=== PATIENT | female | born 1970 | race Asian ===

== ENCOUNTER 2024-10-26 19:24 | Inpatient (IN) | payer OTHER ==
[~2024-10-26] VITALS: Ht 149.9 cm; Wt 47.0 kg
[2024-10-26] MEDS ORDERED: VANCOMYCIN PER PHARMACY 0 MG IV SCH (20:00)
[2024-10-26] MEDS: SODIUM CHLORIDE 0.9% 1,000 ML IV ONE (20:30)
[2024-10-26] MEDS: CLINDAMYCIN 600MG IV 50 ML IV ONE (20:30)
[2024-10-26 20:36] LABS: Eosinophils # (auto) 0.1 10 ^3/uL (0-0.8); Eosinophils % (auto) 0.5 % (0.0-7.0); Lymphocytes # (auto) 1.4 10 ^3/uL (0.4-5.4); Mean Corpuscular Volume 94.6 fL (80.0-100.0)
[2024-10-26 20:37] LABS: Basophils # (auto) 0 10 ^3/uL (0-0.2); Basophils % (auto) 0.2 % (0.0-2.0); Hematocrit 17.5 % (36.0-46.0); Lymphocytes % (auto) 6.8 % (10.0-50.0); Mean Corpuscular Hemoglobin 27.9 pg (28.0-32.0); Mean Corpuscular Hgb Conc. 29.5 g/dL (32.0-36.0); Monocytes % (auto) 5.3 % (0.0-12.0); Neutrophils # (auto) 17.3 10 ^3/uL (1.6-8.6); Neutrophils % (auto) 87.2 % (37.0-80.0); Platelet Count (auto) 370 10^3/uL (140-450); Red Blood Cells 1.85 10^6/uL (4.0-5.20); Red Cell Distribution Width 17.1 % (11.8-14.3); White Blood Cell 19.9 10^3/uL (4.4-10.8)
[2024-10-26 20:48] LABS: Alanine Aminotransferase 11 U/L (7-40); Albumin 3.5 g/dL (3.2-4.8); Alkaline Phosphatase 58 U/L (46-116); Anion Gap 11.00001 (5-15); BUN/Creatinine Ratio 7.3 (10.0-20.0); Calcium 9.7 mg/dL (8.7-10.4)
[2024-10-26 20:49] LABS: Total Protein 6.9 g/dL (5.7-8.2)
[2024-10-26 21:13] LABS: Urine Amorphous Crystal FEW /hpf (None Seen); Urine Bacteria FEW /hpf (None Seen); Urine Blood 1+ /uL (Negative); Urine Clarity Turbid (Clear); Urine Color Light-Yellow (Yellow); Urine Protein, UAD 3+ (Negative); Urine Specific Gravity 1.016 (1.001-1.035); Urine Squamous Epithelial Cell FEW /hpf (<5); Urine Urobilinogen Normal (Negative); Urine WBC 54 /hpf (0 - 5)
[2024-10-26 21:14] LABS: Aspartate Aminotransferase 10 U/L (13-40); Bilirubin, Total 0.2 mg/dL (0.2-1.0); Blood Urea Nitrogen 71 mg/dL (9-23); Chloride 114 mmol/L (98-107); Glucose 201 mg/dL (74-106); Sodium 135 mmol/L (136-145)
[2024-10-26 21:18] LABS: Hemoglobin 5.2 g/dL (12.2-16.2)
[2024-10-26 21:19] LABS: Carbon Dioxide < 10 mmol/L (20-31); Potassium 6.2 mmol/L (3.5-5.1)
[2024-10-26] MEDS: VANCOMYCIN 1GM/250ML KIT 250 ML IV ONE (21:30)
[2024-10-26 21:47] LABS: Anion Gap 12.00001 (5-15)
[2024-10-26 21:48] LABS: Calcium 9.4 mg/dL (8.7-10.4)
[2024-10-26 21:53] LABS: BUN/Creatinine Ratio 8.1 (10.0-20.0)
[2024-10-26 22:00] LABS: Blood Urea Nitrogen 77 mg/dL (9-23); Chloride 114 mmol/L (98-107); Glucose 230 mg/dL (74-106); Sodium 136 mmol/L (136-145)
[2024-10-26 22:01] LABS: Carbon Dioxide < 10 mmol/L (20-31); Potassium 6.6 mmol/L (3.5-5.1)
--- NOTE | 2024-10-26 22:12 | ED.PDOC ---
History of Present Illness HPI Comments 51-year-old female who presents to the emergency department with right eye swelling, redness and pain ongoing for the past 4 days. She states she is still able to see out of the eye. She denies any laceration or injury to the eye. Patient does have a history of diabetes. Chief Complaint: Eye Problem Time Seen by MD: 19:53 Allergies: Coded Allergies: NO KNOWN ALLERGIES (Unverified , 10/26/24) Mode of Arrival: Ambulatory Vital Signs Vital Signs Date Time Temp Pulse Resp B/P (MAP) Pulse Ox O2 Delivery O2 Flow Rate FiO2 10/26/24 23:28 23 97 Room Air* 0 21 10/26/24 22:38 92 10/26/24 22:36 97.8 124/62 (82) 97.8 Physical Exam General: Awake, alert and oriented. No acute distress. Skin: Skin in warm, dry and intact without rashes or lesions. HEENT: Right eyelid erythematous, tender, significantly edematous (swollen shut), visualized conjunctiva mildly erythematous. Swelling of the palpebral conjunctiva noted . Extraocular movements intact. PERRLA Neck: Normal range of motion. No JVD. Cardiac: Regular rate Respiratory: No signs of respiratory distress. No Stridor. Extremities: Upper and lower extremities are atraumatic in appearance without tenderness or deformity. Neurological: The patient is awake, alert and oriented to person, place, and time with normal speech. Speech is clear. There is no facial asymmetry. Psychiatric: Appropriate mood and affect. Good judgement and insight. No visual or auditory hallucinations. No suicidal or homicidal ideation. Review of Systems: REVIEW OF SYSTEMS: No fever, no chills, HEENT: Right eye pain and swelling, blurred vision. She denies complete loss of vision in the right eye Cardiac: No chest pain. No palpitations. Lungs: No shortness of breath, GI: No abdominal pain, no vomiting Musculoskeletal: No joint pain , no back pain Skin: No rash, no wound Neuro: No headache, no dizziness, no syncope Was a procedure done? Was a procedure done?: No Differential Dx Considerations may include: Preseptal cellulitis, orbital cellulitis, abscess, gastrointestinal bleed, other X-Ray, Labs, Meds, VS Vital Signs Date Time Temp Pulse Resp B/P (MAP) Pulse Ox O2 Delivery O2 Flow Rate FiO2 10/26/24 23:28 23 97 Room Air* 0 21 10/26/24 22:38 92 24 98 Room Air* 0 21 10/26/24 22:36 97.8 92 24 124/62 (82) 98 97.8 10/26/24 19:48 98.2 98 20 138/68 (91) 98 Lab Test 10/26/24 22:58 10/26/24 21:30 10/26/24 20:23 10/26/24 20:00 Range/Units POC Glucose 297 H 70-106 mg/dl Sodium Level 136 135 L 136-145 mmol/L Potassium Level 6.6 *H 6.2 *H 3.5-5.1 mmol/L Chloride Level 114 H 114 H 98-107 mmol/L Carbon Dioxide Level < 10 *L < 10 *L 20-31 mmol/L Anion Gap 12.47255 11.31532 5-15 Blood Urea Nitrogen 77 H 71 H 9-23 mg/dL Creatinine 9.53 H 9.73 H 0.550-1.02 mg/dL Glomerular Filtration Rate Calc 5 4 >90 mL/min BUN/Creatinine Ratio 8.1 L 7.3 L 10.0-20.0 Serum Glucose 230 H 201 H 74-106 mg/dL Calcium Level 9.4 9.7 8.7-10.4 mg/dL Urine Color Light-yellow Yellow Urine Clarity Turbid H Clear Urine pH 6.0 5.0-9.0 Urine Specific [place] 1.016 1.001-1.035 Urine Protein 3+ H Negative Urine Ketones Negative Negative Urine Blood 1+ H Negative /uL Urine Nitrite Negative Negative Urine Bilirubin Negative Negative Urine Urobilinogen Normal Negative mg/dL Urine Leukocyte Esterase Trace Negative /uL Urine RBC 5 0 - 4 /hpf Urine WBC 54 0 - 5 /hpf Urine Squamous Epithelial Cells Few <5 /hpf Urine Amorphous Crystals Few None Seen /hpf Urine Bacteria Few H None Seen /hpf Urine Glucose 3+ H Normal mg/dL White Blood Count 19.9 H 4.4-10.8 10^3/uL Red Blood Count 1.85 L 4.0-5.20 10^6/uL Hemoglobin 5.2 *L 12.2-16.2 g/dL Hematocrit 17.5 L 36.0-46.0 % Mean Corpuscular Volume 94.6 80.0-100.0 fL Mean Corpuscular Hemoglobin 27.9 L 28.0-32.0 pg Mean Corpuscular Hemoglobin Concent 29.5 L 32.0-36.0 g/dL Red Cell Distribution Width 17.1 H 11.8-14.3 % Platelet Count 370 140-450 10^3/uL Mean Platelet Volume 7.4 6.9-10.8 fL Neutrophils (%) (Auto) 87.2 H 37.0-80.0 % Lymphocytes (%) (Auto) 6.8 L 10.0-50.0 % Monocytes (%) (Auto) 5.3 0.0-12.0 % Eosinophils (%) (Auto) 0.5 0.0-7.0 % Basophils (%) (Auto) 0.2 0.0-2.0 % Neutrophils # (Auto) 17.3 H 1.6-8.6 10 ^3/uL Lymphocytes # (Auto) 1.4 0.4-5.4 10 ^3/uL Monocytes # (Auto) 1.0 0-1.3 10 ^3/uL Eosinophils # (Auto) 0.1 0-0.8 10 ^3/uL Basophils # (Auto) 0 0-0.2 10 ^3/uL Nucleated Red Blood Cells 0.0 % Prothrombin Time 10.7 9.3-11.8 sec Prothrombin Time INR 1.01 0.9-1.15 Lactic Acid Level 1.3 0.4-2.0 mmol/L Total Bilirubin 0.2 0.2-1.0 mg/dL Aspartate Amino Transferase (AST) 10 L 13-40 U/L Alanine Aminotransferase (ALT) 11 7-40 U/L Alkaline Phosphatase 58 46-116 U/L Total Protein 6.9 5.7-8.2 g/dL Albumin 3.5 3.2-4.8 g/dL Current Medications Medications (Trade) Dose Ordered Sig/Ray Route Start Time Stop Time Status Last Admin Sodium Chloride 1,000 ml @ 1,000 mls/hr Q1H ONCE IV 10/26/24 20:00 10/26/24 20:59 DC 10/26/24 20:30 Clindamycin Phosphate 50 ml @ 50 mls/hr ONCE ONCE IV 10/26/24 20:00 10/26/24 20:59 DC 10/26/24 20:30 Vancomycin HCl 250 ml @ 250 mls/hr ONCE ONCE IV 10/26/24 21:00 10/26/24 21:59 DC 10/26/24 21:30 Insulin Human Regular (InsuLIN R) 10 units ONCE ONCE IV 10/26/24 22:15 10/26/24 22:16 DC 10/26/24 22:15 Dextrose 50 ml ONCE ONCE IV 10/26/24 22:15 10/26/24 22:16 DC 10/26/24 22:15 Albuterol (Ventolin Medneb) 20 mg ONCE ONCE NEB 10/26/24 22:15 10/26/24 22:16 DC 10/26/24 23:26 Sodium Bicarbonate 50 ml ONCE ONCE IV 10/26/24 22:15 10/26/24 22:16 DC 10/26/24 22:15 Calcium Gluconate/ Sodium Chloride 50 ml @ 120 mls/hr ONCE ONCE IV 10/26/24 22:15 10/26/24 22:39 DC 10/26/24 22:15 Zirconium Oxide (Lokelma) 10 gm ONCE ONCE PO 10/26/24 22:15 10/26/24 22:16 DC 10/26/24 22:15 Cefepime HCl 50 ml @ 12.5 mls/hr ONCE ONCE IV 10/26/24 23:45 10/27/24 03:44 10/26/24 23:45 [place] [id number] Ph: [phone] DIAGNOSTIC IMAGING Diagnostic Imaging Report : [id number] Signed PATIENT: NARCISA LINN ACCT: [id number] UNIT: [id number] : 1970 LOC: ER ROOM / BED: / AGE / SEX: 54 / F ADM STATUS: REG ER SERVICE 07 ORDERING PHYSICIAN: TIESHA NEGRON MD PROCEDURE(s): FAC2C - MAXILLOFACIAL WITHOUT REASON: right facial swelling, right eye swelling ORDER NUMBER(s): [id number], ACCESSION NUMBER(s): [id number] EXAM: CT MAXILLOFACIAL WITHOUT CLINICAL HISTORY: right facial swelling, right eye swelling TECHNIQUE: Multiple contiguous axial images were obtained of the facial bones without intravenous contrast. Sagittal and coronal reformations were obtained. This exam was performed according to our departmental dose optimization program. Up-to-date CT equipment and radiation dose reduction techniques are utilized as appropriate. Comparison: None FINDINGS: The globes are symmetric. Prior ocular lens replacements. The extraocular muscles are intact. No intra or extraconal hemorrhage. There is right preseptal soft tissue thickening and stranding. There is subcutaneous soft tissue stranding extending along the anterior and lateral right cheek no well-formed fluid collection to suggest abscess on noncontrast imaging. No soft tissue gas The mastoid air cells and visualized paranasal sinuses are well-aerated. The extraocular muscles are intact. No facial, mandibular, or orbital wall fracture is identified. The temporomandibular joints are maintained. IMPRESSION: 1. Right preseptal cellulitis as well as cellulitis along the anterior lateral right cheek. 2. No soft tissue gas or definite fluid collection on noncontrast imaging. ATED BY: MERE SCHMITT MD DICTATED DATE/TIME: 10/26/242305 SIGNED BY: MERE SCHMITT MD SIGNED DATE/TIME: 10/26/242305 CC: Time of 1ST Reevaluation: 00:44 Reevaluation 1ST: Unchanged Patient Education/Counseling: Diagnosis, Treatment, Other (For admission) Family Education/Counseling: Diagnosis, Other (need for admission) Departure 1 Departure Time of Disposition: 22:11 Impression: Primary Impression: Facial cellulitis Additional Impressions: Orbital cellulitis Hyperkalemia Acute renal failure Disposition: HOME / SELF CARE / HOMELESS Condition: Serious Comments 54-year-old female with a right orbital right facial cellulitis. Acute renal failure with associated hyperkalemia. Antibiotics, hyperkalemia treatment initiated in the emergency department. Hemoglobin 5.5. 2 units PRBCs ordered for transfusion. Patient admitted for further treatment, evaluation and monitoring. Extensive evaluation was performed in attempt to identify or rule out: (See differential diagnosis section) The following tests were ordered, and results were reviewed by me: (See diagnostic results section) The following test were independently interpreted by me: EKG I reviewed and agreed with the following test results read by other providers: N/A I reviewed the following notes from the pt's past medical encounters: (None available at this time) Additional information was gathered from interviewing the following independent historians: N/A Discussion of management or test interpretation with external physician/other qualified health child care worker: N/A Addressed an acute or chronic illness that poses a threat to life or bodily function: Severe anemia requiring blood transfusion, orbital cellulitis, hyperkalemia, acute renal failure Decision regarding hospitalization or escalation of hospital level of care: Risk and benefits of admission for further treatment of patient's condition was considered. Due to patient's current clinical condition, high risk of decline and poor outcome if discharged and need for further inpatient management and monitoring, patient will be admitted to the hospital. Drug therapy requiring intensive monitoring for toxicity: Blood products, IV calcium gluconate, IV insulin, Parenteral controlled substances: N/A Decision regarding elective major surgery with identified patient or procedure risk factors: N/A Decision regarding emergency major surgery: N/A Decision not to resuscitate or to de-escalate care because of poor prognosis: N/A Diagnosis or treatment significantly limited by social determinants of health: N/A Critical Care Note Critical Care Time?: Yes (35 min-critical care time only) Critical care comment: Due to a high probability of clinically significant, life threatening deterioration, the patient required my highest level of preparedness to intervene emergently and I personally spent this critical care time directly and personally managing the patient. This critical care time included obtaining a history; examining the patient; pulse oximetry; ordering and review of studies; arranging urgent treatment with development of a management plan; evaluation of patient's response to treatment; frequent reassessment; and, discussions with other providers. This critical care time was performed to assess and manage the high probability of imminent, life-threatening deterioration that could result in multi-organ failure. It was exclusive of separately billable procedures and treating other patients and teaching time. Please see my other sections and the rest of the note for further information on patient assessment and treatment. Stability Stability form required: No Heart Score Heart Score: Heart Score Response (Comments) Value History N/A 0 EKG N/A 0 Age N/A 0 Risk Factors N/A 0 Troponin N/A 0 Total 0 TIESHA NEGRON MD Oct 26, 2024 22:12
[2024-10-26] MEDS: SODIUM BICARB 8.4% 50Meq/50ml SYR INJ IV ONE (22:15)
[2024-10-26] MEDS: InsuLIN REG 1unit/0.01ml Soln (100units/ml) IV ONE (22:15)
[2024-10-26] MEDS: SODIUM ZIRCONIUM CYCL 10 GM PAK PO ONE (22:15)
[2024-10-26] MEDS: DEXTROSE (50%) 50ML SYRG IV ONE (22:15)
[2024-10-26] MEDS: CALCIUM GLUC 1,000mg/50ml-NS 50 ML IV ONE (22:15)
[2024-10-26 22:38] VITALS: PULSE 92; RESP 24; O2SAT 98
[2024-10-26 23:02] LABS: INR 1.01 (0.9-1.15); Prothrombin Time 10.7 sec (9.3-11.8)
--- NOTE | 2024-10-26 23:09 | DVH ---
EXAM: CT MAXILLOFACIAL WITHOUT CLINICAL HISTORY: right facial swelling, right eye swelling TECHNIQUE: Multiple contiguous axial images were obtained of the facial bones without intravenous con trast. Sagittal and coronal reformations were obtained. This exam was performed according to our depa rtmental dose optimization program. Up-to-date CT equipment and radiation dose reduction techniques a re utilized as appropriate. Comparison: None FINDINGS: The globes are symmetric. Prior ocular lens replacements. The extraocular muscles are intact. No int ra or extraconal hemorrhage. There is right preseptal soft tissue thickening and stranding. There is subcutaneous soft tissue stranding extending along the anterior and lateral right cheek no well-form ed fluid collection to suggest abscess on noncontrast imaging. No soft tissue gas The mastoid air cells and visualized paranasal sinuses are well-aerated. The extraocular muscles are intact. No facial, mandibular, or orbital wall fracture is identified. The temporomandibular joints are maintained. IMPRESSION: 1. Right preseptal cellulitis as well as cellulitis along the anterior lateral right cheek. 2. No soft tissue gas or definite fluid collection on noncontrast imaging.
[2024-10-26] MEDS: ALBUTEROL SULF 2.5 MG/0.5ML(0.5%) NEB SOLN NEB ONE (23:26)
[2024-10-26] MEDS: CEFEPIME 1GM/ 50ML 50 ML IV ONE (23:45)
[2024-10-27] VITALS (22 sets, daily range): BP systolic 109–149; BP diastolic 52–91; PULSE 95–113; RESP 15–30; TEMP 97.4–99.4; O2SAT 95–98
[2024-10-27] MEDS ORDERED: ONDANSETRON HCL 4 MG/2 ML VIAL IV PRN (01:00)
[2024-10-27] MEDS ORDERED: DOCUSATE SOD 100 MG CAP PO PRN (01:00)
[2024-10-27] MEDS ORDERED: DEXTROSE (50%) 50ML SYRG IV PRN ×2 (01:00→08:30)
--- NOTE | 2024-10-27 02:55 | DVHHP2 ---
History of Present Illness Reason for Visit: Acute renal failure History of Present Illness The patient is a 51-year-old female who denies past medical history presented to [facility] ED with complaint of right eye swelling, redness, and persistent discharge for a proximally 4 days duration. Patient was seen and alex luated in the ED, laboratory data shows WBC 19.9, hemoglobin 5.2, hematocrit 17.5, platelets 370, sodium 136, potassium 6.6, BUN 77, creatinine 9.53, GFR 5, glucose 230, AST 10, ALT 11, blood pressure 124/68, heart rate 92, temperature 97.8 F, O2 saturation 98% on room air. Maxillofacial CT revealing right preseptal cellulitis as well as cellulitis along the anterior lateral right cheek. Patient was started on IV antibiotic regimen vancomycin, receive 2 units of PRBC, please see medication orders section in the computer. On my assessment, patient denied chest pain, no headache, no dizziness, no diaphoresis, no shortness of breath, no nausea, no vomiting, fever, no chills. Patient was admitted for further evaluation and medical management. Past Medical History Denies past medical history Past Surgical History Denies all surgeries Family History Reviewed, noncontributory to the management of this case. Past Social History The patient lives at home, denies smoking, alcohol or illicit drugs abuse. Review of Systems Constitutional: Yes: Weakness; No: Fever, Chills, Sweats, Malaise, Other Eyes: Conjunctivae inflammation, Eyelid inflammation, Other (Right eye discharge), Redness; No: Pain, Vision change ENT: No: Ear pain, Ear discharge, Nose pain, Nose discharge, Nose congestion, Mouth pain, Mouth swelling, Throat pain, Throat swelling, Other Respiratory: No: Cough, Dry, Shortness of breath, SOB with excertion, Wheezing, Hemoptysis, Pleuritic Pain, Sputum, Wheezing, Other Cardiovascular: No: Chest Pain, Palpitations, Orthopnea, Paroxysmal Noc. Dyspnea, Edema, Lt Headedness, Other Gastrointestinal: No: Nausea, Vomiting, Abdominal Pain, Diarrhea, Constipation, Melena, Hematochezia, Other Genitourinary: No Dysuria, No Frequency, No Incontinence, No Hematuria, No Retention, No Other Musculoskeletal: No: other, neck pain, shoulder pain, arm pain, back pain, hand pain, leg pain, foot pain Skin: No: Rash, Lesions, Jaundice, Bruising, Other Neurological: No: Weakness, Numbness, Incoordination, Change in speech, Confusion, Seizures, Other Allergies: Coded Allergies: NO KNOWN ALLERGIES (Unverified , 10/26/24) Medications Current Medications Medications Dose Ordered Sig/Ray Route Start Time Stop Time Status Last Admin Dose Admin Vancomycin HCl 0 ml @ 0 mls/hr UD IV 10/26/24 20:00 Clindamycin Phosphate 50 ml @ 50 mls/hr Q8HR IV 10/27/24 06:00 Diagnostic Test (Pha) 1 strip ACHS 10/27/24 07:00 Insulin Human Regular ACHS SC 10/27/24 07:00 Dextrose 50 ml UD PRN IV 10/27/24 01:00 Sodium Chloride 10 ml Q8HR IV 10/27/24 06:00 Acetaminophen/ Hydrocodone Bitart 1 tab Q4HP PRN PO 10/27/24 01:00 Ondansetron HCl 4 mg Q4HP PRN IV 10/27/24 01:00 Docusate Sodium 100 mg BIDPRN PRN PO 10/27/24 01:00 Acetaminophen 650 mg Q6HP PRN PO 10/27/24 01:00 Famotidine 20 mg DAILY IV 10/27/24 10:00 Exam Vital Signs Vital Signs Date Time Temp Pulse Resp B/P (MAP) Pulse Ox O2 Delivery O2 Flow Rate FiO2 10/27/24 02:44 97.4 107 24 126/59 (81) 100 97.4 10/26/24 23:28 Room Air* 0 21 General Appearance: Alert, Oriented X3, Cooperative, No acute distress HEENT: Atraumatic, PERRLA, EOMI, Mucous membr. moist/pink Respiratory: Clear to auscultation, Normal air movement Cardiovascular: Regular rate, Normal S1, Normal S2, No murmurs Abdominal: Normal bowel sounds, Soft, No tenderness, No hepatospenomegaly, No masses Extremities: No clubbing, No cyanosis, No edema, Normal pulses, No tenderness/swelling Skin: No rashes, No breakdown, No significant lesion Neuro: Normal gait, Normal speech, Strength at 5/5 X4 ext, Normal tone, Sensation intact, Cranial nerves 3-12 NL, Reflexes 2+ Psych/Mental Status: Mental status NL, Mood NL Labs/Xrays Labs Test 10/26/24 22:58 10/26/24 21:30 10/26/24 20:23 10/26/24 20:00 Range/Units POC Glucose 297 H 70-106 mg/dl Sodium Level 136 136-145 mmol/L Potassium Level 6.6 *H 3.5-5.1 mmol/L Chloride Level 114 H 98-107 mmol/L Carbon Dioxide Level < 10 *L 20-31 mmol/L Anion Gap 12.19011 5-15 Blood Urea Nitrogen 77 H 9-23 mg/dL Creatinine 9.53 H 0.550-1.02 mg/dL Glomerular Filtration Rate Calc 5 >90 mL/min BUN/Creatinine Ratio 8.1 L 10.0-20.0 Serum Glucose 230 H 74-106 mg/dL Calcium Level 9.4 8.7-10.4 mg/dL Urine Color Light-yellow Yellow Urine Clarity Turbid H Clear Urine pH 6.0 5.0-9.0 Urine Specific [place] 1.016 1.001-1.035 Urine Protein 3+ H Negative Urine Ketones Negative Negative Urine Blood 1+ H Negative /uL Urine Nitrite Negative Negative Urine Bilirubin Negative Negative Urine Urobilinogen Normal Negative mg/dL Urine Leukocyte Esterase Trace Negative /uL Urine RBC 5 0 - 4 /hpf Urine WBC 54 0 - 5 /hpf Urine Squamous Epithelial Cells Few <5 /hpf Urine Amorphous Crystals Few None Seen /hpf Urine Bacteria Few H None Seen /hpf Urine Glucose 3+ H Normal mg/dL White Blood Count 19.9 H 4.4-10.8 10^3/uL Red Blood Count 1.85 L 4.0-5.20 10^6/uL Hemoglobin 5.2 *L 12.2-16.2 g/dL Hematocrit 17.5 L 36.0-46.0 % Mean Corpuscular Volume 94.6 80.0-100.0 fL Mean Corpuscular Hemoglobin 27.9 L 28.0-32.0 pg Mean Corpuscular Hemoglobin Concent 29.5 L 32.0-36.0 g/dL Red Cell Distribution Width 17.1 H 11.8-14.3 % Platelet Count 370 140-450 10^3/uL Mean Platelet Volume 7.4 6.9-10.8 fL Neutrophils (%) (Auto) 87.2 H 37.0-80.0 % Lymphocytes (%) (Auto) 6.8 L 10.0-50.0 % Monocytes (%) (Auto) 5.3 0.0-12.0 % Eosinophils (%) (Auto) 0.5 0.0-7.0 % Basophils (%) (Auto) 0.2 0.0-2.0 % Neutrophils # (Auto) 17.3 H 1.6-8.6 10 ^3/uL Lymphocytes # (Auto) 1.4 0.4-5.4 10 ^3/uL Monocytes # (Auto) 1.0 0-1.3 10 ^3/uL Eosinophils # (Auto) 0.1 0-0.8 10 ^3/uL Basophils # (Auto) 0 0-0.2 10 ^3/uL Nucleated Red Blood Cells 0.0 % Prothrombin Time 10.7 9.3-11.8 sec Prothrombin Time INR 1.01 0.9-1.15 Lactic Acid Level 1.3 0.4-2.0 mmol/L Total Bilirubin 0.2 0.2-1.0 mg/dL Aspartate Amino Transferase (AST) 10 L 13-40 U/L Alanine Aminotransferase (ALT) 11 7-40 U/L Alkaline Phosphatase 58 46-116 U/L Total Protein 6.9 5.7-8.2 g/dL Albumin 3.5 3.2-4.8 g/dL PATIENT: NARCISA LINN ACCT: [id number] UNIT: [id number] : 1970 LOC: ER ROOM / BED: / AGE / SEX: 54 / F ADM STATUS: REG ER SERVICE 07 ORDERING PHYSICIAN: TIESHA NEGRON MD PROCEDURE(s): FAC2C - MAXILLOFACIAL WITHOUT REASON: right facial swelling, right eye swelling ORDER NUMBER(s): [id number], ACCESSION NUMBER(s): [id number] EXAM: CT MAXILLOFACIAL WITHOUT CLINICAL HISTORY: right facial swelling, right eye swelling TECHNIQUE: Multiple contiguous axial images were obtained of the facial bones without intravenous contrast. Sagittal and coronal reformations were obtained. This exam was performed according to our departmental dose optimization program. Up-to-date CT equipment and radiation dose reduction techniques are utilized as appropriate. Comparison: None FINDINGS: The globes are symmetric. Prior ocular lens replacements. The extraocular muscles are intact. No intra or extraconal hemorrhage. There is right preseptal soft tissue thickening and stranding. There is subcutaneous soft tissue stranding extending along the anterior and lateral right cheek no well-formed fluid collection to suggest abscess on noncontrast imaging. No soft tissue gas The mastoid air cells and visualized paranasal sinuses are well-aerated. The extraocular muscles are intact. No facial, mandibular, or orbital wall fracture is identified. The temporomandibular joints are maintained. IMPRESSION: 1. Right preseptal cellulitis as well as cellulitis along the anterior lateral right cheek. 2. No soft tissue gas or definite fluid collection on noncontrast imaging. Assessment/Plan Assessment/Plan Facial cellulitis Orbital cellulitis Hyperglycemia Hyperkalemia Acute renal failure Severe anemia Leukocytosis, unspecified Plan 1. Admit to telemetry unit 2. Breathing treatment 3. Pain control management 4. IV antibiotic management 5. Management of fluids and electrolytes 6. Consultation for nephrology 7. Diagnostic test maxillofacial CT 8. DVT prophylaxis on SCDs 9. Repeat labs CBC, CMP in a.m. 10. Home medication reviewed and reconciled 11. Continue with current medical management 12. Treatment plan discussed with patient and RN. Patient verbalized understanding. Plan discussed with: Patient, Other (RN) My Orders Orders - LOC VAZ DNP Procedure Category Date Status Time Clindamycin 600mg Iv PHA 10/27/24 In Process (Cleocin Iv) 06:00 Hemoglobin A1c LAB 10/27/24 Logged 00:58 *Dr. Chriss Bruce CONS 10/27/24 Transmitted -[place] 00:58 Consistent DIET 10/27/24 Transmitted Carb(Ccho)Diabetes Breakfast Glucose Blood PHA 10/27/24 In Process (Accu-Chek Comfort 07:00 Insulin R (Human) PHA 10/27/24 In Process (Insulin R) 07:00 Dextrose 50% Syringe PHA 10/27/24 In Process 01:00 Allergies OLIVIA 10/27/24 In Process 00:58 Code Status CODE 10/27/24 Transmitted 00:58 Renal DIET 10/27/24 Transmitted Standard(2gna,3gk,Lopho) Breakfast Sodium Chloride Lock PHA 10/27/24 In Process (Saline Lock Ns) 06:00 Oxygen Per Hour RT 10/27/24 Transmitted 00:58 Hydrocodone-Acet PHA 10/27/24 In Process 5/325mg Tab ([place] 01:00 Ondansetron Hcl PHA 10/27/24 In Process (Zofran) 01:00 Docusate Sodium PHA 10/27/24 In Process Capsule (Colace 01:00 Complete Blood Count LAB 10/28/24 Verified 04:00 Comprehensive LAB 10/28/24 Verified Metabolic Panel 04:00 Condition: Serious OLIVIA 10/27/24 In Process 00:58 Acetaminophen Tablet PHA 10/27/24 In Process (Tylenol Tablet) 01:00 Bedrest With Bathroom OLIVIA 10/27/24 In Process Privileg 00:58 Sequential OLIVIA 10/27/24 In Process Compression Device Famotidine Injection PHA 10/27/24 In Process (Pepcid Injection) 10:00 Problem List: (1) Facial cellulitis (2) Severe anemia (3) Hyperglycemia (4) Orbital cellulitis (5) Acute renal failure (6) Hyperkalemia (7) Leukocytosis, unspecified Date of Service: Oct 27, 2024 Billing Provider: LOC VAZ DNP Common Visit Codes: [id number] INP/OBS CARE (HIGH) LOC VAZ DNP Oct 27, 2024 02:55
[2024-10-27] MEDS ORDERED: MORPHINE SULFATE INJ 2 MG/ml SYRG IV PRN (03:00)
[2024-10-27] MEDS ORDERED: NITROGLYCERIN 0.4 MG SL TAB SL PRN (03:00)
[2024-10-27] MEDS: SODIUM CHLOR 0.9% PF (SALINE LOCK) 10ML VIAL/SYR IV SCH (06:00)
[2024-10-27] MEDS: CLINDAMYCIN 600MG IV 50 ML IV SCH (06:00)
[2024-10-27] MEDS: ACCU-CHEK COMFORT CURVE STRIP VI SCH ×2 (07:00→11:51)
[2024-10-27] MEDS: InsuLIN REG 1unit/0.01ml Soln (100units/ml) SC SCH ×2 (07:00→11:39)
--- NOTE | 2024-10-27 07:40 | DVHPNRES ---
Progress Note Date Seen: Oct 27, 2024 Resident Creating Document: JEANETTE BEDOYA RESIDENT Has the PT tested + for MRSA If YES, has PT been informed?: No Medical Necessity Reason Pt with a Central, PICC or Fol: No Medical Necessity Reason right eye swelling, redness, and persistent discharge for a proximally 4 days duration Subjective Review of Systems This is a 54-year-old female who the past medical history of diabetes and kidney disease presented to the [facility] with the compliant of right eye swelling, redness, and persistent discharge for a proximally 4 days duration. Per patient, she woke up from bed 4 days ago and noted that her right eye was swollen and discharging fluid. Patient said she used [id number] topical medications without any improvement. This as the day progresses so did the swelling to the point that yesterday patient was unable to open her eyes as it was filled with pus. Patient was then advised to come to the ED for evaluation and management. In the ED, patient denied chest pain, no headache, no dizziness, no diaphoresis, no shortness of breath, no nausea, no vomiting, fever, no chills. Initial vital data showed BP:124/68, HR: 92, temp: 97.8 F, O2 saturation 98% on room air. Lab work showed WBC 19.9, hemoglobin 5.2, hematocrit 17.5, platelets 370, sodium 136, potassium 6.6, BUN 77, creatinine 9.53, GFR 5, glucose 230, AST 10, ALT 11. Maxillofacial CT revealing right preseptal cellulitis as well as cellulitis along the anterior lateral right cheek. Patient was started on IV antibiotic regimen vancomycin, received 2 units of PRBC. On my evaluation, patient was bed with her right eye closed with pus discharging. Patient expressed tenderness her right eye swelling red. ROS Constitutional: Denies fever no chills no feeling of malaise HEENT: Denies headache, ear pain: ear discharges, conjunctivitis, pus discharge Right eye. nasal discharge throat pain Cardiovascular: Denies chest pain, palpitation, orthopnea, PND, or pedal edema Respiratory: Denies shortness of breath, cough cough, sputum production, hemoptysis, GI: Denies abdominal pain, nausea, vomiting, diarrhea, hematemesis, hematochezia, : Denies frequency, urgency, hematuria, Endocrine: Denies unintentional weight gain or weight loss, feeling of hot flashes, Markie: Denies easy bruising, bleeding disorders, epistaxis Musculoskeletal: Denies joint pains, muscle aches Psych: No evidence of depression, agapito, suicidal ideation Objective vital signs Vital Sign Date Time Temp Pulse Resp B/P (MAP) Pulse Ox O2 Delivery O2 Flow Rate FiO2 10/27/24 07:00 98.2 113 30 130/66 (87) 98 98.2 10/26/24 23:28 Room Air* 0 21 Total Intake and Output 10/26/24 10/26/24 10/27/24 15:00 23:00 07:00 Intake Total 1050 ml 550 ml Output Total 0 ml Balance 1050 ml 550 ml medications Current Medications Medications Dose Ordered Sig/Ray Route Start Time Stop Time Status Last Admin Dose Admin Vancomycin HCl 0 ml @ 0 mls/hr UD IV 10/26/24 20:00 Clindamycin Phosphate 50 ml @ 50 mls/hr Q8HR IV 10/27/24 06:00 Diagnostic Test (Pha) 1 strip ACHS 10/27/24 07:00 Insulin Human Regular ACHS SC 10/27/24 07:00 Dextrose 50 ml UD PRN IV 10/27/24 01:00 Sodium Chloride 10 ml Q8HR IV 10/27/24 06:00 10/27/24 06:00 10 ML Acetaminophen/ Hydrocodone Bitart 1 tab Q4HP PRN PO 10/27/24 01:00 Ondansetron HCl 4 mg Q4HP PRN IV 10/27/24 01:00 Docusate Sodium 100 mg BIDPRN PRN PO 10/27/24 01:00 Acetaminophen 650 mg Q6HP PRN PO 10/27/24 01:00 Famotidine 20 mg DAILY IV 10/27/24 10:00 Nitroglycerin 0.4 mg Q5MINP PRN SL 10/27/24 03:00 Morphine Sulfate 2 mg Q30M PRN IV 10/27/24 03:00 Examination General Appearance: Alert, Oriented X3, Cooperative, No acute distress, pale Head: Atraumatic Eye: RIGHT -->[place], Eyelid swelling, pus discharges, eyelids matted, Left: normal Ear: no discharge noted Nose:no discharge noted Respiratory: Clear to auscultation, Normal air movement Cardiovascular: Regular rate, Normal S1, Normal S2, No murmurs, no chest wall tenderness Abdominal: NO distention, no tenderness, bowel sounds present, no scars noted Extremities: No clubbing, No cyanosis, No edema, Normal pulses, No tenderness/swelling Skin: No rashes, No breakdown, No significant lesion Neuro: Normal gait, Normal speech, Strength at 5/5 X4 ext, Normal tone, Sensation intact, Cranial nerves 3-12 NL, Reflexes 2+ Psych/Mental Status: Mental status NL, Mood NL laboratory and microbiology Laboratory Tests 10/26/24 21:30 10/26/24 20:00 Test 10/26/24 21:30 Range/Units Serum Glucose 230 H 74-106 mg/dL Problem List/Assessment/Plan Problem List/Assessment/Plan Assessment Sepsis due to UTI/cellulitis UTI Preseptal cellulitis Facial cellulitis Hyperglycemia, Hgb: 6.0 Severe enema status post 4 blood transfusion GI bleed Melena rule out GI bleed Diabetes mellitus type II Hyperkalemia Mild hyponatremia MONICA ESRD, (GFR 4) Plan Continue Vancomycin Continue Clindamycin Consider Cefepime, need renal comment given the GFR 4 Protonix 40mg bid Lantus 10 unit daily Moderate sliding scale N/S maintainence at 100ml/hr Check and replace electrolytes Hyperkalemia protocol Repeat labs in the AM GI consult Nephrology consult urgent Cardiology consult Ophthalmology consult Code status: Full Goal of care discussed for more than 45 minutes Case and plan reviewed with Plan discussed with: Patient, Spouse CC Plasma Assessment Blood Product Administration S: [id number] Date of Service: Oct 27, 2024 Billing Provider: LIBAN OCHOA MD Common Visit Codes: [id number] INP/OBS CARE(HIGH) Secondary Visit Codes: [id number] CARE PLAN 30 MINUTES JEANETTE BEDOYA RESIDENT Oct 27, 2024 07:40 LIBAN OCHOA MD Oct 27, 2024 18:30
[2024-10-27 07:57] LABS: Basophils # (auto) 0.1 10 ^3/uL (0-0.2); Basophils % (auto) 0.3 % (0.0-2.0); Eosinophils # (auto) 0 10 ^3/uL (0-0.8); Hematocrit 19.4 % (36.0-46.0); Lymphocytes # (auto) 0.5 10 ^3/uL (0.4-5.4); Lymphocytes % (auto) 2.6 % (10.0-50.0); Mean Corpuscular Hemoglobin 28.6 pg (28.0-32.0); Mean Corpuscular Hgb Conc. 30.4 g/dL (32.0-36.0); Mean Corpuscular Volume 93.9 fL (80.0-100.0); Monocytes # (auto) 1.1 10 ^3/uL (0-1.3); Monocytes % (auto) 6.2 % (0.0-12.0); Neutrophils # (auto) 16.3 10 ^3/uL (1.6-8.6); Neutrophils % (auto) 90.9 % (37.0-80.0); Platelet Count (auto) 312 10^3/uL (140-450); Red Blood Cells 2.07 10^6/uL (4.0-5.20); Red Cell Distribution Width 16.9 % (11.8-14.3); White Blood Cell 17.9 10^3/uL (4.4-10.8)
[2024-10-27 08:00] LABS: Hemoglobin 5.9 g/dL (12.2-16.2)
[2024-10-27 08:08] LABS: Alanine Aminotransferase 11 U/L (7-40); Albumin 3.5 g/dL (3.2-4.8); Alkaline Phosphatase 60 U/L (46-116); Anion Gap 15.00001 (5-15); BUN/Creatinine Ratio 8.3 (10.0-20.0); Calcium 9.4 mg/dL (8.7-10.4)
[2024-10-27 08:09] LABS: Total Protein 6.5 g/dL (5.7-8.2)
[2024-10-27 08:14] LABS: Aspartate Aminotransferase 11 U/L (13-40); Bilirubin, Total 0.2 mg/dL (0.2-1.0); Chloride 111 mmol/L (98-107); Potassium 5.5 mmol/L (3.5-5.1); Sodium 136 mmol/L (136-145)
[2024-10-27 08:19] LABS: Carbon Dioxide < 10 mmol/L (20-31); Glucose 449 mg/dL (74-106)
[2024-10-27 08:20] LABS: Blood Urea Nitrogen 81 mg/dL (9-23)
[2024-10-27] MEDS ORDERED: FAMOTIDINE (10MG/ML) 2ML VL IV SCH (10:00)
[2024-10-27] MEDS: SODIUM CHLORIDE 0.9% 1,000 ML IV SCH (11:26)
[2024-10-27] MEDS: PANTOPRAZOLE 40 MG/10 ML VIAL INJ IV SCH ×2 (11:26→21:54)
[2024-10-27] MEDS: SODIUM BICARB 50mEq/50ml Vial 150 ML in D5W 5% 1,000 ML IV SCH (12:30)
[2024-10-27] MEDS: SODIUM BICARB 8.4% 50Meq/50ml SYR Vial IV ONE (15:45)
--- NOTE | 2024-10-27 17:18 | DVHCONRES ---
Date Seen: Oct 27, 2024 Resident Creating Document: CURTIS JUNIOR RESIDENT Referring Physician Dr. Park Reason for Consultation MELENA STOOL, SEVERE ANEMIA History of Present Illness Ms. Vega, a 51-year-old female with no past medical history presented to the ED with right eye swelling, redness, and discharge for four days. Laboratory results showed elevated WBC, low hemoglobin and hematocrit, high potassium, BUN, and creatinine, with a GFR of 5. Maxillofacial CT revealed right preseptal cellulitis and cellulitis along the right cheek. She was started on IV antibiotics and received 2 units of PRBC. The patient denied chest pain, headache, dizziness, diaphoresis, shortness of breath, nausea, vomiting, fever, and chills. She was admitted for further evaluation and medical management. She denies smoking, alcohol, or illicit drug use. Patient was seen few weeks back in [facility] where she was told that she has renal failure but she was in disbelief/denial. Past Medical History Denies Past Surgical History Denies Family History Noncontributory Social History The patient lives at home, denies smoking, alcohol or illicit drugs abuse. Allergies: Coded Allergies: NO KNOWN ALLERGIES (Unverified , 10/26/24) Current Medications Current Medications Medications (Trade) Dose Ordered Sig/Ray Route PRN Reason Start Time Stop Time Status Last Admin Vancomycin HCl 0 ml @ 0 mls/hr UD IV 10/26/24 20:00 Clindamycin Phosphate 50 ml @ 50 mls/hr Q8HR IV 10/27/24 06:00 10/27/24 14:00 Diagnostic Test (Pha) (Accu-Chek Comfort Curve T) 1 strip ACHS 10/27/24 07:00 10/27/24 10:07 DC 10/27/24 07:00 Insulin Human Regular (InsuLIN R) ACHS SC 10/27/24 07:00 10/27/24 08:32 DC 10/27/24 07:00 Dextrose 50 ml UD PRN IV Blood Sugar LESS THAN 60 10/27/24 01:00 10/27/24 10:07 DC Sodium Chloride (Saline Lock Ns) 10 ml Q8HR IV 10/27/24 06:00 10/27/24 14:00 Acetaminophen/ Hydrocodone Bitart ([place] 5/325MG Tab) 1 tab Q4HP PRN PO MODERATE PAIN (4-6 PAIN SCALE) 10/27/24 01:00 Ondansetron HCl (Zofran) 4 mg Q4HP PRN IV NAUSEA / VOMITING 10/27/24 01:00 Docusate Sodium (Colace Capsule) 100 mg BIDPRN PRN PO FOR CONSTIPATION 10/27/24 01:00 Acetaminophen (Tylenol Tablet) 650 mg Q6HP PRN PO PAIN SCALE 1-3 OR TEMP>100.4 10/27/24 01:00 Famotidine (Pepcid Injection) 20 mg DAILY IV 10/27/24 10:00 10/27/24 08:32 DC Nitroglycerin (Ntrostat Sublingual) 0.4 mg Q5MINP PRN SL FOR CHEST PAIN 10/27/24 03:00 Morphine Sulfate 2 mg Q30M PRN IV FOR CHEST PAIN 10/27/24 03:00 Pantoprazole Sodium (Protonix) 40 mg DAILY IV 10/27/24 10:00 10/27/24 11:26 Insulin Glargine (Lantus) QAM SC 10/28/24 07:00 Diagnostic Test (Pha) (Accu-Chek Comfort Curve T) 1 strip IQ4HR 10/27/24 12:00 10/27/24 11:51 Insulin Human Regular (InsuLIN R) IQ4HR SC 10/27/24 12:00 10/27/24 11:39 Dextrose 50 ml UD PRN IV Blood Sugar LESS THAN 60 10/27/24 08:30 Sodium Chloride 1,000 ml @ 100 mls/hr Q10H IV 10/27/24 09:15 10/27/24 11:26 Sodium Bicarbonate 150 ml/Dextrose 1,150 ml @ 100 mls/hr [id number] IV 10/27/24 12:30 10/27/24 12:30 Review of Systems CONSTITUTIONAL: Fever, night sweats, weight loss, Lymphadenopathy, ecchymoses, fatigue DERMATOLOGIC: Rash, New/growing/changing skin lesions HEENT: Vision change, eye pain, right eye periorbital swelling, right eye pustular discharge, Rhinorrhea, sinus pain, epistaxis, dysphagia, odynophagia, globus sensation, Change in hearing, tinnitus, vertigo, otalgia, Dental problems, oral ulcers or lesions: : Negative ENDOCRINE: Weight change, heat or cold intolerance, tremor, insomnia, neck pain or swelling, Polyuria, polydipsia, polyphagia, Abnormal hair growth, change in nails: Negative CARDIOVASCULAR: Chest pain, palpitations, syncope, Edema, cyanosis, c laudication, Orthopnea, paroxysmal nocturnal dyspnea: Negative PULMONARY: Shortness of breath, dyspnea with exertion, Cough, hemoptysis, wheezing, chest pain : Negative GI: Nausea, vomiting, diarrhea, melena, hematochezia, Change in appetite, abdominal pain, change in bowel habits or stools: Negative low urine output : Dysuria, frequency, urgency, Urinary incontinence, hematuria, foamy urine, nocturia, Change in libido, erectile dysfunction, Change in menses, dysmenorrhea, dyspaerunia, pelvic pain: : Negative MUSCULOSKELETAL: Joint swelling or pain, muscle pain, back pain: : Negative NEUROLOGIC: Headache, scotoma, Change in smell or taste, change in facial muscles, Muscle weakness, paresthesias, anesthesia, Ataxia, change in speech: Ne gative PSYCHIATRIC: Depression, anxiety, hallucinations, agapito, suicidal/homicidal thoughts, Binging, purging: Negative Vital Signs Vital Signs Date Time Temp Pulse Resp B/P (MAP) Pulse Ox O2 Delivery O2 Flow Rate FiO2 10/27/24 14:00 98.5 96 18 138/75 98.5 10/27/24 14:00 98 10/27/24 08:00 Room Air* 0 21 Labs/Diagnostic Data Labs Test 10/27/24 11:30 10/27/24 05:00 10/26/24 20:23 10/26/24 20:00 Range/Units POC Glucose 317 H 70-106 mg/dl White Blood Count 17.9 H 4.4-10.8 10^3/uL Red Blood Count 2.07 L 4.0-5.20 10^6/uL Hemoglobin 5.9 *L 12.2-16.2 g/dL Hematocrit 19.4 #L 36.0-46.0 % Mean Corpuscular Volume 93.9 80.0-100.0 fL Mean Corpuscular Hemoglobin 28.6 28.0-32.0 pg Mean Corpuscular Hemoglobin Concent 30.4 L 32.0-36.0 g/dL Red Cell Distribution Width 16.9 H 11.8-14.3 % Platelet Count 312 140-450 10^3/uL Mean Platelet Volume 7.3 6.9-10.8 fL Neutrophils (%) (Auto) 90.9 H 37.0-80.0 % Lymphocytes (%) (Auto) 2.6 L 10.0-50.0 % Monocytes (%) (Auto) 6.2 0.0-12.0 % Eosinophils (%) (Auto) 0.0 0.0-7.0 % Basophils (%) (Auto) 0.3 0.0-2.0 % Neutrophils # (Auto) 16.3 H 1.6-8.6 10 ^3/uL Lymphocytes # (Auto) 0.5 0.4-5.4 10 ^3/uL Monocytes # (Auto) 1.1 0-1.3 10 ^3/uL Eosinophils # (Auto) 0 0-0.8 10 ^3/uL Basophils # (Auto) 0.1 0-0.2 10 ^3/uL Nucleated Red Blood Cells 0.0 % Sodium Level 136 136-145 mmol/L Potassium Level 5.5 H 3.5-5.1 mmol/L Chloride Level 111 H 98-107 mmol/L Carbon Dioxide Level < 10 *L 20-31 mmol/L Anion Gap 15.66607 H 5-15 Blood Urea Nitrogen 81 *H 9-23 mg/dL Creatinine 9.77 H 0.550-1.02 mg/dL Glomerular Filtration Rate Calc 4 >90 mL/min BUN/Creatinine Ratio 8.3 L 10.0-20.0 Serum Glucose 449 *H 74-106 mg/dL Hemoglobin A1c 6.0 H <5.7 % A1C Calcium Level 9.4 8.7-10.4 mg/dL Iron Level 17 L 50-170 ug/dL Total Iron Binding Capacity 212 L 250-425 ug/dL Percent Iron Saturation 8.0 L 15-50 % Total Bilirubin 0.2 0.2-1.0 mg/dL Aspartate Amino Transferase (AST) 11 L 13-40 U/L Alanine Aminotransferase (ALT) 11 7-40 U/L Alkaline Phosphatase 60 46-116 U/L Total Protein 6.5 5.7-8.2 g/dL Albumin 3.5 3.2-4.8 g/dL Random Vancomycin Level 20.9 H 5-10 ug/mL Urine Color Light-yellow Yellow Urine Clarity Turbid H Clear Urine pH 6.0 5.0-9.0 Urine Specific [place] 1.016 1.001-1.035 Urine Protein 3+ H Negative Urine Ketones Negative Negative Urine Blood 1+ H Negative /uL Urine Nitrite Negative Negative Urine Bilirubin Negative Negative Urine Urobilinogen Normal Negative mg/dL Urine Leukocyte Esterase Trace Negative /uL Urine RBC 5 0 - 4 /hpf Urine WBC 54 0 - 5 /hpf Urine Squamous Epithelial Cells Few <5 /hpf Urine Amorphous Crystals Few None Seen /hpf Urine Bacteria Few H None Seen /hpf Urine Glucose 3+ H Normal mg/dL Prothrombin Time 10.7 9.3-11.8 sec Prothrombin Time INR 1.01 0.9-1.15 Lactic Acid Level 1.3 0.4-2.0 mmol/L Assessment 54-year-old female in ESRD and sepsis secondary due to UTI and preseptal facial cellulitis. GI assessment: #Melena likely upper GI bleed status post 4 units of PRBC #acute blood loss anemia likely secondary due to GI blood loss, lowest 5.2 #iron-deficiency anemia #Preseptal periorbital/facial cellulitis #Sepsis due to UTI/cellulitis #UTI #Prediabetic 6.0 #ESRD, (GFR 4), anuria needing initiation of dialysis. #Hyperkalemia likely due to above Plan/Recommendation GI Plan: # Medications: pantoprazole 40 mg b.i.d. IV to continue . # Labs: Check ferritin, close follow up of H&H, transfusion threshold 7. Follow up urine and blood culture. # Plan procedure: Presumably patient was not hemodynamically stable, 1st need dialysis, electrolyte correction and when patient is stable we will consider f urther investigation with EGD/no previous history of colonoscopy, cancer screening colonoscopy pending can be considered outpatient cramer. # Diet: Please avoid NSAIDs, caffeine, alcohol, spicy, highly acidic and caustic diets. As tolerated liquid diet/mechanical soft diet. NPO before the night of scheduled procedure. # Continue antibiotics: Further input from ophthalmology and nephrology could be immensely helpful. # please scheduled follow up with GI as outpatient with Dr. Anglin. Thank you so much for the opportunity to consult on your patient. GI team will follow the patient. In case of any questions or concerns please feel free to reach out. Case an action plan discussed with Dr. Mily Anglin. Complex care planning needed total 41 minutes of detailed discussion. The patient and caregiver team agreed to the plan. Plan discussed with: Patient, Other (Primary team) CURTIS JUNIOR RESIDENT Oct 27, 2024 17:18
[2024-10-27 18:12] LABS: Hematocrit 28.5 % (36.0-46.0); Hemoglobin 9.4 g/dL (12.2-16.2)
--- NOTE | 2024-10-27 20:33 | DVHINCON2 ---
Date of service: Oct 27, 2024 History of Present Illness 54 years old female with past medical history of diabetes Chronic kidney disease, presented with chief complaints right eye swelling redness discharge she is found to be in severe acidosis, hyperkalemia, Acute kidney injury patient has a Pablo catheter and remains nonoliguric she is currently being treated with IV fluids and antibiotics she is found to have CT revealing preseptal cellulitis she also admits to dark stool black color stool found to have low hemoglobin receiving PRBC transfusion Patient was told she has GFR 20 to 25 few months ago by her dr Patient seen and examined in emergency Past Medical History As per HPI Past Surgical History As per HPI Allergies: Coded Allergies: NO KNOWN ALLERGIES (Unverified , 10/26/24) Current Medications Current Medications Medications (Trade) Dose Ordered Sig/Ray Route PRN Reason Start Time Stop Time Status Last Admin Clindamycin Phosphate 50 ml @ 50 mls/hr Q8HR IV 10/27/24 06:00 10/27/24 14:00 Diagnostic Test (Pha) (Accu-Chek Comfort Curve T) 1 strip ACHS 10/27/24 07:00 10/27/24 10:07 DC 10/27/24 07:00 Insulin Human Regular (InsuLIN R) ACHS SC 10/27/24 07:00 10/27/24 08:32 DC 10/27/24 07:00 Dextrose 50 ml UD PRN IV Blood Sugar LESS THAN 60 10/27/24 01:00 10/27/24 10:07 DC Sodium Chloride (Saline Lock Ns) 10 ml Q8HR IV 10/27/24 06:00 10/27/24 14:00 Acetaminophen/ Hydrocodone Bitart ([place] [employer] 5/325MG Tab) 1 tab Q4HP PRN PO MODERATE PAIN (4-6 PAIN SCALE) 10/27/24 01:00 Ondansetron HCl (Zofran) 4 mg Q4HP PRN IV NAUSEA / VOMITING 10/27/24 01:00 Docusate Sodium (Colace Capsule) 100 mg BIDPRN PRN PO FOR CONSTIPATION 10/27/24 01:00 Acetaminophen (Tylenol Tablet) 650 mg Q6HP PRN PO PAIN SCALE 1-3 OR TEMP>100.4 10/27/24 01:00 Famotidine (Pepcid Injection) 20 mg DAILY IV 10/27/24 10:00 10/27/24 08:32 DC Nitroglycerin (Ntrostat Sublingual) 0.4 mg Q5MINP PRN SL FOR CHEST PAIN 10/27/24 03:00 Morphine Sulfate 2 mg Q30M PRN IV FOR CHEST PAIN 10/27/24 03:00 Pantoprazole Sodium (Protonix) 40 mg DAILY IV 10/27/24 10:00 10/27/24 17:38 DC 10/27/24 11:26 Insulin Glargine (Lantus) QAM SC 10/28/24 07:00 Diagnostic Test (Pha) (Accu-Chek Comfort Curve T) 1 strip IQ4HR 10/27/24 12:00 10/27/24 17:47 Insulin Human Regular (InsuLIN R) IQ4HR SC 10/27/24 12:00 10/27/24 17:48 Dextrose 50 ml UD PRN IV Blood Sugar LESS THAN 60 10/27/24 08:30 Sodium Chloride 1,000 ml @ 100 mls/hr Q10H IV 10/27/24 09:15 10/27/24 11:26 Sodium Bicarbonate 150 ml/Dextrose 1,150 ml @ 100 mls/hr [id number] IV 10/27/24 12:30 10/27/24 12:30 Pantoprazole Sodium (Protonix) 40 mg BID IV 10/27/24 22:00 Review of Systems As documented in HPI H&P Exam Vital Signs/I&O Vital Sign Date Time Temp Pulse Resp B/P (MAP) Pulse Ox O2 Delivery O2 Flow Rate FiO2 10/27/24 18:30 98 22 143/76 (98) 97 10/27/24 16:00 98.3 98.3 10/27/24 08:00 Room Air* 0 21 Intake and Output0 10/26/24 10/27/24 18:59 06:59 Intake Total 1600 ml Output Total 0 ml Balance 1600 ml Intake Oral 0 ml IV Total 1050 ml Tube Feeding 0 ml Blood Product 550 ml Other 0 ml Output Urine Total 0 ml Physical Exam General-not in any distress HEENT-right eye swollen, cellulitis, discharge Respiratory-fair air entry bilateral, no rhonchi, no wheeze [id number] heard, no murmurs appreciated Abdominal-soft, nontender, nondistended Musculoskeletal-no pedal edema, no calf tenderness Genitourinary-deferred Neuro-awake alert oriented x3, Psychiatric-not agitated, cooperative, Labs/Diagnostic Data Labs/Diagnostic Data Laboratory Tests Test 10/27/24 17:41 10/27/24 17:10 10/27/24 11:30 10/27/24 07:31 Range/Units Hemoglobin 9.4 #L 12.2-16.2 g/dL Hematocrit 28.5 #L 36.0-46.0 % Potassium Level 4.7 3.5-5.1 mmol/L POC Glucose 149 H 317 H 367 H 70-106 mg/dl Test 10/27/24 05:00 10/26/24 22:58 10/26/24 21:30 10/26/24 20:23 Range/Units White Blood Count 17.9 H 4.4-10.8 10^3/uL Red Blood Count 2.07 L 4.0-5.20 10^6/uL Hemoglobin 5.9 *L 12.2-16.2 g/dL Hematocrit 19.4 #L 36.0-46.0 % Mean Corpuscular Volume 93.9 80.0-100.0 fL Mean Corpuscular Hemoglobin 28.6 28.0-32.0 pg Mean Corpuscular Hemoglobin Concent 30.4 L 32.0-36.0 g/dL Red Cell Distribution Width 16.9 H 11.8-14.3 % Platelet Count 312 140-450 10^3/uL Mean Platelet Volume 7.3 6.9-10.8 fL Neutrophils (%) (Auto) 90.9 H 37.0-80.0 % Lymphocytes (%) (Auto) 2.6 L 10.0-50.0 % Monocytes (%) (Auto) 6.2 0.0-12.0 % Eosinophils (%) (Auto) 0.0 0.0-7.0 % Basophils (%) (Auto) 0.3 0.0-2.0 % Neutrophils # (Auto) 16.3 H 1.6-8.6 10 ^3/uL Lymphocytes # (Auto) 0.5 0.4-5.4 10 ^3/uL Monocytes # (Auto) 1.1 0-1.3 10 ^3/uL Eosinophils # (Auto) 0 0-0.8 10 ^3/uL Basophils # (Auto) 0.1 0-0.2 10 ^3/uL Nucleated Red Blood Cells 0.0 % Sodium Level 136 136 136-145 mmol/L Potassium Level 5.5 H 6.6 *H 3.5-5.1 mmol/L Chloride Level 111 H 114 H 98-107 mmol/L Carbon Dioxide Level < 10 *L < 10 *L 20-31 mmol/L Anion Gap 15.92214 H 12.06351 5-15 Blood Urea Nitrogen 81 *H 77 H 9-23 mg/dL Creatinine 9.77 H 9.53 H 0.550-1.02 mg/dL Glomerular Filtration Rate Calc 4 5 >90 mL/min BUN/Creatinine Ratio 8.3 L 8.1 L 10.0-20.0 Serum Glucose 449 *H 230 H 74-106 mg/dL Hemoglobin A1c 6.0 H <5.7 % A1C Calcium Level 9.4 9.4 8.7-10.4 mg/dL Iron Level 17 L 50-170 ug/dL Total Iron Binding Capacity 212 L 250-425 ug/dL Percent Iron Saturation 8.0 L 15-50 % Total Bilirubin 0.2 0.2-1.0 mg/dL Aspartate Amino Transferase (AST) 11 L 13-40 U/L Alanine Aminotransferase (ALT) 11 7-40 U/L Alkaline Phosphatase 60 46-116 U/L Total Protein 6.5 5.7-8.2 g/dL Albumin 3.5 3.2-4.8 g/dL Random Vancomycin Level 20.9 H 5-10 ug/mL POC Glucose 297 H 70-106 mg/dl Urine Color Light-yellow Yellow Urine Clarity Turbid H Clear Urine pH 6.0 5.0-9.0 Urine Specific [place] 1.016 1.001-1.035 Urine Protein 3+ H Negative Urine Ketones Negative Negative Urine Blood 1+ H Negative /uL Urine Nitrite Negative Negative Urine Bilirubin Negative Negative Urine Urobilinogen Normal Negative mg/dL Urine Leukocyte Esterase Trace Negative /uL Urine RBC 5 0 - 4 /hpf Urine WBC 54 0 - 5 /hpf Urine Squamous Epithelial Cells Few <5 /hpf Urine Amorphous Crystals Few None Seen /hpf Urine Bacteria Few H None Seen /hpf Urine Glucose 3+ H Normal mg/dL Test 10/26/24 20:00 Range/Units White Blood Count 19.9 H 4.4-10.8 10^3/uL Red Blood Count 1.85 L 4.0-5.20 10^6/uL Hemoglobin 5.2 *L 12.2-16.2 g/dL Hematocrit 17.5 L 36.0-46.0 % Mean Corpuscular Volume 94.6 80.0-100.0 fL Mean Corpuscular Hemoglobin 27.9 L 28.0-32.0 pg Mean Corpuscular Hemoglobin Concent 29.5 L 32.0-36.0 g/dL Red Cell Distribution Width 17.1 H 11.8-14.3 % Platelet Count 370 140-450 10^3/uL Mean Platelet Volume 7.4 6.9-10.8 fL Neutrophils (%) (Auto) 87.2 H 37.0-80.0 % Lymphocytes (%) (Auto) 6.8 L 10.0-50.0 % Monocytes (%) (Auto) 5.3 0.0-12.0 % Eosinophils (%) (Auto) 0.5 0.0-7.0 % Basophils (%) (Auto) 0.2 0.0-2.0 % Neutrophils # (Auto) 17.3 H 1.6-8.6 10 ^3/uL Lymphocytes # (Auto) 1.4 0.4-5.4 10 ^3/uL Monocytes # (Auto) 1.0 0-1.3 10 ^3/uL Eosinophils # (Auto) 0.1 0-0.8 10 ^3/uL Basophils # (Auto) 0 0-0.2 10 ^3/uL Nucleated Red Blood Cells 0.0 % Prothrombin Time 10.7 9.3-11.8 sec Prothrombin Time INR 1.01 0.9-1.15 Sodium Level 135 L 136-145 mmol/L Potassium Level 6.2 *H 3.5-5.1 mmol/L Chloride Level 114 H 98-107 mmol/L Carbon Dioxide Level < 10 *L 20-31 mmol/L Anion Gap 11.64163 5-15 Blood Urea Nitrogen 71 H 9-23 mg/dL Creatinine 9.73 H 0.550-1.02 mg/dL Glomerular Filtration Rate Calc 4 >90 mL/min BUN/Creatinine Ratio 7.3 L 10.0-20.0 Serum Glucose 201 H 74-106 mg/dL Lactic Acid Level 1.3 0.4-2.0 mmol/L Calcium Level 9.7 8.7-10.4 mg/dL Total Bilirubin 0.2 0.2-1.0 mg/dL Aspartate Amino Transferase (AST) 10 L 13-40 U/L Alanine Aminotransferase (ALT) 11 7-40 U/L Alkaline Phosphatase 58 46-116 U/L Total Protein 6.9 5.7-8.2 g/dL Albumin 3.5 3.2-4.8 g/dL Assessment Acute kidney injury likely septic ATN versus other etiology Baseline Chronic kidney disease IIIb versus4 Hyperkalemia Metabolic acidosis Severe sepsis Recommendations Bicarb drip Strict Is&Os Low threshold for initiation of HD We will follow Labs as ordered Nonoliguric Renally dose antibiotics to GFR Check U PCR Plan discussed with: Patient BRYN NGUYỄN MD Oct 27, 2024 20:33
[2024-10-27 20:40] LABS: Base Excess -11.6 mmol/L (-2.0-3.0)
[2024-10-27 21:28] LABS: Potassium 4.7 mmol/L (3.5-5.1); Sodium 140 mmol/L (136-145)
[2024-10-27 21:29] LABS: Anion Gap 13 (5-15); Calcium 8.8 mg/dL (8.7-10.4)
[2024-10-27 21:34] LABS: BUN/Creatinine Ratio 8.8 (10.0-20.0)
[2024-10-27 21:43] LABS: Blood Urea Nitrogen 77 mg/dL (9-23); Carbon Dioxide 14 mmol/L (20-31); Chloride 113 mmol/L (98-107); Glucose 206 mg/dL (74-106)
[2024-10-28] VITALS (9 sets, daily range): BP systolic 139–160; BP diastolic 74–91; PULSE 94–111; RESP 16–19; TEMP 98.6–99.5; O2SAT 93–96
[2024-10-28] MEDS: HYDROcodone-ACET 5/325MG TAB PO PRN (00:48)
[2024-10-28] MEDS: INSULIN LANTUS (GLARGINE) 1 /0.01ml (100units/ml) SC SCH (06:38)
[2024-10-28] MEDS ORDERED: INSULIN LANTUS (GLARGINE) 1 /0.01ml (100units/ml) SC SCH (07:00)
[2024-10-28 07:20] LABS: Alanine Aminotransferase 10 U/L (7-40); Alkaline Phosphatase 58 U/L (46-116); Anion Gap 14 (5-15); Aspartate Aminotransferase 15 U/L (13-40); BUN/Creatinine Ratio 9.4 (10.0-20.0); Potassium 4.3 mmol/L (3.5-5.1); Sodium 141 mmol/L (136-145)
[2024-10-28 07:22] LABS: Albumin 2.9 g/dL (3.2-4.8); Bilirubin, Total 0.3 mg/dL (0.2-1.0); Calcium 8.3 mg/dL (8.7-10.4); Carbon Dioxide 16 mmol/L (20-31); Chloride 111 mmol/L (98-107); Glucose 172 mg/dL (74-106); Total Protein 5.3 g/dL (5.7-8.2)
[2024-10-28 07:24] LABS: Blood Urea Nitrogen 80 mg/dL (9-23)
[2024-10-28 07:30] LABS: Basophils # (auto) 0 10 ^3/uL (0-0.2); Basophils % (auto) 0.2 % (0.0-2.0); Eosinophils # (auto) 0.3 10 ^3/uL (0-0.8); Eosinophils % (auto) 1.9 % (0.0-7.0); Hematocrit 29.7 % (36.0-46.0); Hemoglobin 9.6 g/dL (12.2-16.2); Lymphocytes # (auto) 1.2 10 ^3/uL (0.4-5.4); Lymphocytes % (auto) 6.7 % (10.0-50.0); Mean Corpuscular Hemoglobin 29.3 pg (28.0-32.0); Mean Corpuscular Hgb Conc. 32.3 g/dL (32.0-36.0); Mean Corpuscular Volume 90.5 fL (80.0-100.0); Monocytes # (auto) 1.6 10 ^3/uL (0-1.3); Monocytes % (auto) 9.1 % (0.0-12.0); Neutrophils # (auto) 14.4 10 ^3/uL (1.6-8.6); Neutrophils % (auto) 82.1 % (37.0-80.0); Nucleated Red Blood Cells % 0.1 %; Platelet Count (auto) 256 10^3/uL (140-450); Red Blood Cells 3.28 10^6/uL (4.0-5.20); Red Cell Distribution Width 15.5 % (11.8-14.3); White Blood Cell 17.6 10^3/uL (4.4-10.8)
--- NOTE | 2024-10-28 08:27 | DVHPN2 ---
Progress Note Date Seen: Oct 28, 2024 Has the PT tested + for MRSA If YES, has PT been informed?: No Medical Necessity Reason Pt with a Central, PICC or Fol: Yes The following are medically ne: Pablo Catheter Subjective Patient reports: Other Review of Systems: HEENT:Abnormal Objective vital signs Vital Sign Date Time Temp Pulse Resp B/P (MAP) Pulse Ox O2 Delivery O2 Flow Rate FiO2 10/28/24 05:00 99.1 95 18 149/84 (105) 96 99.1 10/27/24 23:56 Room Air* 0 21 Total Intake and Output 10/27/24 10/27/24 10/28/24 15:00 23:00 07:00 Intake Total 1750 ml 600 ml 2450 ml Output Total 625 ml 0 ml 700 ml Balance 1125 ml 600 ml 1750 ml medications Current Medications Medications Dose Ordered Sig/Ray Route Start Time Stop Time Status Last Admin Dose Admin Vancomycin HCl 0 ml @ 0 mls/hr UD IV 10/26/24 20:00 Clindamycin Phosphate 50 ml @ 50 mls/hr Q8HR IV 10/27/24 06:00 10/28/24 05:15 50 MLS/HR Sodium Chloride 10 ml Q8HR IV 10/27/24 06:00 10/28/24 05:15 10 ML Acetaminophen/ Hydrocodone Bitart 1 tab Q4HP PRN PO 10/27/24 01:00 10/28/24 00:48 1 TAB Ondansetron HCl 4 mg Q4HP PRN IV 10/27/24 01:00 Docusate Sodium 100 mg BIDPRN PRN PO 10/27/24 01:00 Acetaminophen 650 mg Q6HP PRN PO 10/27/24 01:00 Nitroglycerin 0.4 mg Q5MINP PRN SL 10/27/24 03:00 Morphine Sulfate 2 mg Q30M PRN IV 10/27/24 03:00 Diagnostic Test (Pha) 1 strip IQ4HR 10/27/24 12:00 10/28/24 04:00 1 STRIP Insulin Human Regular IQ4HR SC 10/27/24 12:00 10/28/24 04:40 3 UNITS Dextrose 50 ml UD PRN IV 10/27/24 08:30 Sodium Chloride 1,000 ml @ 100 mls/hr Q10H IV 10/27/24 09:15 10/28/24 05:15 100 MLS/HR Sodium Bicarbonate 150 ml/Dextrose 1,150 ml @ 100 mls/hr [id number] IV 10/27/24 12:30 10/28/24 05:04 100 MLS/HR Pantoprazole Sodium 40 mg BID IV 10/27/24 22:00 10/27/24 21:54 40 MG Insulin Glargine 10 units QAM SC 10/28/24 07:00 10/28/24 06:38 10 UNITS Examination: GENERAL:Abnormal, HEENT:Abnormal laboratory and microbiology Laboratory Tests 10/28/24 05:46 Test 10/28/24 05:46 Range/Units Serum Glucose 172 H 74-106 mg/dL Microbiology Date/Time Source Procedure Growth Status 10/26/24 20:00 Blood Blood Culture - Preliminary NO GROWTH AFTER 24 HOURS OF INCUBATION. Resulted Problem List/Assessment/Plan Problem List/Assessment/Plan Acute kidney injury likely septic ATN versus other etiology Baseline Chronic kidney disease IIIb versus4 Hyperkalemia Metabolic acidosis Severe sepsis Anemia with black stool --gi bleeding? 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
--- NOTE | 2024-10-28 09:56 | DVH ---
INDICATION: isabella TECHNIQUE: Multiple real-time sonographic images of the kidneys and bladder were obtained. COMPARISON: None FINDINGS: RIGHT kidney measures 10.7 cm in length. No hydronephrosis, cortical thinning, or suspicious renal masses. The right renal cortex is abnormal ly increased in echogenicity. LEFT kidney measures 9.3 cm in length. No hydronephrosis, suspicious renal masses, cortical thinning, or abnormal cortical echogenicity. Pablo catheter decompresses the urinary bladder. IMPRESSION: 1. Increased echogenicity of the right renal cortex suggestive of medical renal disease. 2. Normal sonographic appearance of the left kidney. 3. Pablo catheter in the urinary bladder.
--- NOTE | 2024-10-28 10:45 | DVHINCON2 ---
Date Seen: Oct 28, 2024 Referring Physician MD Vivian Reason for Consultation Abnormal 12-lead electrocardiogram History of Present Illness This is a 54-year-old female who presented to the emergency room with a chief complaint of right orbital edema. The patient presented with complaints of right orbital edema with associated facial edema. She also endorses symptoms of shortness of breath and exertional palpitations. Denies chest pain, dizziness, diaphoresis, or syncopal events. She underwent a 12 lead electrocardiogram revealing a sinus rhythm with lateral T-wave inversion prompting cardiology evaluation. Significant medical history includes ipl-ukenola-kacexeixg diabetes mellitus, chronic kidney disease, and GERD. Past Medical History Past medical history reviewed. No other significant than mentioned above. Past Surgical History Past surgical history reviewed. No other significant than mentioned above. Family History: Diabetes mellitus G8 MOTHER Family History Family history reviewed. Denies family history for cardiovascular disease. Social History Denies the use of illicit drugs, alcohol, or tobacco use. Allergies: Coded Allergies: NO KNOWN ALLERGIES (Unverified , 10/26/24) Home Meds Home medications reviewed. Current Medications Current Medications Medications (Trade) Dose Ordered Sig/Ray Route PRN Reason Start Time Stop Time Status Last Admin Insulin Glargine (Lantus) QAM SC 10/28/24 07:00 10/28/24 04:52 DC Diagnostic Test (Pha) (Accu-Chek Comfort Curve T) 1 strip IQ4HR 10/27/24 12:00 10/28/24 08:55 Insulin Human Regular (InsuLIN R) IQ4HR SC 10/27/24 12:00 10/28/24 09:11 Sodium Bicarbonate 150 ml/Dextrose 1,150 ml @ 100 mls/hr [id number] IV 10/27/24 12:30 10/28/24 05:04 Pantoprazole Sodium (Protonix) 40 mg BID IV 10/27/24 22:00 10/28/24 08:54 Insulin Glargine (Lantus) 10 units QAM SC 10/28/24 07:00 10/28/24 06:38 Review of Systems Constitutional: Facial edema Ears, Nose, & Throat: No symptom reported Eyes: Right orbital edema Neurological: No symptoms reported Pulmonary/Respiratory: No symptom reported Cardiovascular: No symptom reported Gastrointestinal: No symptom reported Genitourinary: No symptom reported Musculoskeletal: No symptom reported Skin: No symptom reported Psychiatric: No symptom reported Endocrine: No symptom reported Hemotologic/Lymphatic: No symptom reported Vital Signs Vital Signs Date Time Temp Pulse Resp B/P (MAP) Pulse Ox O2 Delivery O2 Flow Rate FiO2 10/28/24 09:00 99.5 100 16 160/85 (110) 93 99.5 10/27/24 23:56 Room Air* 0 21 Physical Exam General Appearance: Cooperative. Obvious facial edema. Anasarca. In no acute distress Head Exam: Normal inspection Neck Exam: Normal inspection. Non-tender. Normal alignment Pulmonary/Respiratory: Chest non-tender. Clear bilateral breath sounds Cardiovascular/Chest: Regular rate and rhythm. S1, S2. Sinus tachycardia one 100s bpm. No murmurs. No JVD. Peripheral Pulses: 2+ Radial (R). 2+ Radial (L). 2+ Pedal (R). 2+ Pedal (L) Abdominal Exam: Normal bowel sounds. Soft. Nontender. No hepatospenomegaly. No masses Ankle Exam: Negative ankle edema Lower extremities: Negative lower extremity edema Upper extremities: Left upper extremity swelling Neuro/Mental Status: A&O x4. Coherent Thoughts/Psych: Normal thought pattern. Appropriate mood and affect. Good judgement and insight Appearance: In no acute distress Skin Exam: Right orbital swelling/erythema/discharge Labs/Diagnostic Data Labs Test 10/28/24 08:50 10/28/24 08:32 10/28/24 05:46 10/27/24 20:35 Range/Units POC Glucose 187 H 70-106 mg/dl White Blood Count 17.6 H 4.4-10.8 10^3/uL Red Blood Count 3.28 L 4.0-5.20 10^6/uL Hemoglobin 9.6 L 12.2-16.2 g/dL Hematocrit 29.7 L 36.0-46.0 % Mean Corpuscular Volume 90.5 80.0-100.0 fL Mean Corpuscular Hemoglobin 29.3 28.0-32.0 pg Mean Corpuscular Hemoglobin Concent 32.3 32.0-36.0 g/dL Red Cell Distribution Width 15.5 H 11.8-14.3 % Platelet Count 256 140-450 10^3/uL Mean Platelet Volume 7.3 6.9-10.8 fL Neutrophils (%) (Auto) 82.1 H 37.0-80.0 % Lymphocytes (%) (Auto) 6.7 L 10.0-50.0 % Monocytes (%) (Auto) 9.1 0.0-12.0 % Eosinophils (%) (Auto) 1.9 0.0-7.0 % Basophils (%) (Auto) 0.2 0.0-2.0 % Neutrophils # (Auto) 14.4 H 1.6-8.6 10 ^3/uL Lymphocytes # (Auto) 1.2 0.4-5.4 10 ^3/uL Monocytes # (Auto) 1.6 H 0-1.3 10 ^3/uL Eosinophils # (Auto) 0.3 0-0.8 10 ^3/uL Basophils # (Auto) 0 0-0.2 10 ^3/uL Nucleated Red Blood Cells 0.1 % Sodium Level 141 136-145 mmol/L Potassium Level 4.3 3.5-5.1 mmol/L Chloride Level 111 H 98-107 mmol/L Carbon Dioxide Level 16 L 20-31 mmol/L Anion Gap 14 5-15 Blood Urea Nitrogen 80 *H 9-23 mg/dL Creatinine 8.54 H 0.550-1.02 mg/dL Glomerular Filtration Rate Calc 5 >90 mL/min BUN/Creatinine Ratio 9.4 L 10.0-20.0 Serum Glucose 172 H 74-106 mg/dL Calcium Level 8.3 L 8.7-10.4 mg/dL Total Bilirubin 0.3 0.2-1.0 mg/dL Aspartate Amino Transferase (AST) 15 13-40 U/L Alanine Aminotransferase (ALT) 10 7-40 U/L Alkaline Phosphatase 58 46-116 U/L Total Protein 5.3 L 5.7-8.2 g/dL Albumin 2.9 L 3.2-4.8 g/dL Random Vancomycin Level 16.5 H 5-10 ug/mL Blood Gas Specimen Type Arterial Blood Gas Sample Site Left radial Blood Gas Patient Temperature 37.0 Arterial Blood Date Drawn [id number] Arterial Blood pH 7.380 7.350-7.450 Arterial Blood Partial Pressure CO2 20.3 L 32.0-45.0 mmHg Arterial Blood Partial Pressure O2 71.6 L 83.0-108.0 mmHg Arterial Blood HCO3 11.7 L 21.0-28.0 mmol/L Arterial Blood Oxygen Saturation 94.0 94.0-98.0 % Arterial Blood Base Excess -11.6 L -2.0-3.0 mmol/L Arterial Blood Oxyhemoglobin 93.2 L 94.0-98.0 % Arterial Blood Carboxyhemoglobin 0.6 0.5-1.5 % Arterial Blood Methemoglobin 0.3 0.0-1.5 % Trace Test Yes Blood Gas Total Hemoglobin 10.00 L 12.0-16.0 g/dL Blood Gas Modality Room air FiO2 % 21.0 Test 10/27/24 05:00 10/26/24 20:23 10/26/24 20:00 Range/Units Hemoglobin A1c 6.0 H <5.7 % A1C Iron Level 17 L 50-170 ug/dL Total Iron Binding Capacity 212 L 250-425 ug/dL Percent Iron Saturation 8.0 L 15-50 % Urine Color Light-yellow Yellow Urine Clarity Turbid H Clear Urine pH 6.0 5.0-9.0 Urine Specific [place] 1.016 1.001-1.035 Urine Protein 3+ H Negative Urine Ketones Negative Negative Urine Blood 1+ H Negative /uL Urine Nitrite Negative Negative Urine Bilirubin Negative Negative Urine Urobilinogen Normal Negative mg/dL Urine Leukocyte Esterase Trace Negative /uL Urine RBC 5 0 - 4 /hpf Urine WBC 54 0 - 5 /hpf Urine Squamous Epithelial Cells Few <5 /hpf Urine Amorphous Crystals Few None Seen /hpf Urine Bacteria Few H None Seen /hpf Urine Glucose 3+ H Normal mg/dL Prothrombin Time 10.7 9.3-11.8 sec Prothrombin Time INR 1.01 0.9-1.15 Lactic Acid Level 1.3 0.4-2.0 mmol/L Microbiology Date/Time Source Procedure Growth Status 10/26/24 20:00 Blood Blood Culture - Preliminary NO GROWTH AFTER 24 HOURS OF INCUBATION. Resulted Assessment Right preseptal facial cellulitis Severe anemia status post PRBCs MONICA on advanced CKD with associated hyperkalemia Hypertensive urgency Rule out left upper extremity DVT Org-waximwv-hvchsocyo diabetes mellitus Anasarca Plan/Recommendation (Dr. Boyd) The patient presents with a 12-lead electrocardiogram revealing a sinus rhythm with lateral T-wave inversion, a low heart score, and denying any chest pain symptoms. ECG changes could be secondary to hemodynamic derangement including severe anemia, electrolyte imbalance including hyperkalemia, and advanced CKD with fluid overload status. The patient is not a candidate for any ischemic workup at this time. She can benefit from an outpatient stress test if deemed to be necessary. In the meantime, initiate blood pressure control with nifedipine and uptitrate as necessary. Rule out left upper extremity DVT. Continue nephrology recommendations. In the setting of an unremarkable transthoracic echocardiogram, there is no further cardiac workup indicated at this time. Thank you for allowing us to participate in this patient's care. Please call if you have any questions or concerns. This medical document was created using an electronic medical record system with voice recognition software and computerized dictation system. Although this document has been carefully reviewed, there might still be some phonetic and typographical errors. Occasional wrong-word or ``sound-alike substitutions may have occurred due to the inherent limitations of voice recognition software. These areas are purely typographical due to imperfections of the software programs and do not reflect any compromise in the patient's medical care. Please read the chart carefully and recognize, using context, where these substitutions have occurred. Plan discussed with: Patient, Other NYHA Physical activity limitations: NA Date of Service: Oct 28, 2024 Billing Provider: RICKEY ARREDONDO Cardiology Common Codes: [id number] INP/OBS CARE (High) RICKEY ARREDONDO Oct 28, 2024 10:45
--- NOTE | 2024-10-28 11:31 | DVH ---
LEFT Upper Extremity Venous Duplex Clinical History: Edema Comparison: None Technique: Duplex doppler evaluation of the venous system of the LEFT lower neck and upper extremity including color doppler and spectral/pulsed waveform analysis was performed. Findings: The internal jugular vein demonstrates appropriate compressibility and waveform variability. The subclavian vein is patent on color Doppler evaluation without intraluminal thrombus and demonstra bryan waveform variability. The visualized portion of the brachiocephalic vein is patent on color Doppler evaluation without intr aluminal thrombus and demonstrates waveform variability. The axillary vein demonstrates appropriate compressibility and waveform variability. The brachial veins demonstrate appropriate compressibility and patency on Doppler evaluation. The basilic vein demonstrates appropriate compressibility and patency on Doppler evaluation. Occlusive thrombus in the left cephalic vein.. Impression: 1. Occlusive thrombus in the left cephalic vein.
[2024-10-28] MEDS ORDERED: LISI20TA56 PO (12:56)
[2024-10-28] MEDS ORDERED: CHOL20007 PO (12:56)
[2024-10-28] MEDS ORDERED: POM (12:56)
[2024-10-28] MEDS ORDERED: INSUINJ37 SC (12:56)
[2024-10-28] MEDS ORDERED: INSLISPI SC (12:56)
[2024-10-28] MEDS ORDERED: METO25TA93 PO (12:56)
[2024-10-28] MEDS: NIFEdipine ER 30 MG TAB PO ONE (13:23)
--- NOTE | 2024-10-28 14:12 | DVHSR ---
APPROVED REPORT EXAM: Two-dimensional and M-mode echocardiogram with Doppler and color Doppler. Blood Pressure: 149/84 mmHg INDICATION Abnormal ECG RISK FACTORS Height: 4' 11", Weight: 113 DIMENSIONS LVDd4.1 (3.8-5.7cm)LA (2D)4.0 (1.9-4.0cm)Aortic Root3.0 (2.0-3.7cm) LVDs3.3 (2.5-4.0cm)LA (MM) (1.9-4.0cm)Aortic Cusp Exc1.4 (1.5-2.0cm) EF (%) 40.0 (55-70%)Rt. Atrium3.8 (1.9-4.0cm)Asc. Aorta cm IVSd1.3 (0.7-1.1cm)RV (D) (1.8-2.4cm) PWd1.2 (0.7-1.1cm) Mitral Valve MitralMitral Stenosis E wave1.00m/sMV Mean GR.mmHg A wave0.70m/sMV Peak GR.mmHg E/A ratio1.42D MVAcm2 Aortic Valve Aortic ValveAortic Stenosis V10.70m/Ann-Marie Mean GR.4mmHg V21.20m/Ann-Marie Peak GR.7mmHg LVOT Diameter1.8 (1.8-2.4cm)Doppler AVA1.48cm2 Pulmonic Valve V20.70m/s Tricuspid Valve TR Velocity3.90m/s [id number] Conclusion lvef 35-40% by viusal estimate hypokinetic anteroseptum left atrium enlarged moderate mild to moderate mitral regurg trivial pericardial effusion mild tricuspdi regurg
--- NOTE | 2024-10-28 14:17 | DVHPN2 ---
Subjective The patient is seen and examined at bedside. The patient still have severe pain in her right eye. The patient said her vision seemed to be more blurry. Reviewed: Care Plan Changes from previous H/P or p: No Changes Eyes: No Pain, No Vision change; Conjunctivae inflammation, Eyelid inflammation , Other (Right eye discharge), Redness ENT: No Ear pain, No Ear discharge, No Nose pain, No Nose discharge, No Nose congestion, No Mouth pain, No Mouth swelling, No Throat pain, No Throat swelling, No Other Cardiovascular: No Chest Pain, No Palpitations, No Orthopnea, No Paroxysmal Noc. Dyspnea, No Edema, No Lt Headedness, No Other Respiratory: No Cough, No Dry, No Shortness of breath, No SOB with excertion, No Wheezing, No Hemoptysis, No Pleuritic Pain, No Sputum, No Other Gastrointestinal: No Nausea, No Vomiting, No Abdominal Pain, No Diarrhea, No Constipation, No Melena, No Hematochezia, No Other Genitourinary: No Dysuria, No Frequency, No Incontinence, No Hematuria, No Retention, No Other Musculoskeletal: No other, No neck pain, No shoulder pain, No arm pain, No back pain, No hand pain, No leg pain, No foot pain Skin: No Rash, No Lesions, No Jaundice, No Bruising, No Other Objective Vitals Vital Signs Date Time Temp Pulse Resp B/P (MAP) Pulse Ox O2 Delivery O2 Flow Rate FiO2 10/28/24 13:23 160/87 10/28/24 13:00 98.6 98 16 95 98.6 10/27/24 23:56 Room Air* 0 21 Intake/Output Intake and Output 10/28/24 07:00 Intake Total 4800 ml Output Total 1325 ml Balance 3475 ml Intake Oral 250 ml IV Total 2250 ml Tube Feeding 0 ml Blood Product 1700 ml Other 600 ml Output Urine Total 1325 ml General Appearance: Alert, Oriented X3, Cooperative, No acute distress HEENT: Atraumatic, Other (Right eye orbital cellulitis with edema and erytherma) Neck: Supple Lungs: Clear to auscultation, Normal air movement Cardiovascular: Regular rate, Normal S1, Normal S2, No murmurs, Gallops, Rubs Abdomen: Normal bowel sounds, Soft Neuro: Cranial nerves 3-12 NL Skin: Other (Right eye orbital cellulitis) Psych/Mental Status: Mental status NL Medications Current Medications Medications Dose Ordered Sig/Ray Route Start Time Stop Time Status Last Admin Dose Admin Vancomycin HCl 0 ml @ 0 mls/hr UD IV 10/26/24 20:00 Clindamycin Phosphate 50 ml @ 50 mls/hr Q8HR IV 10/27/24 06:00 10/28/24 13:24 50 MLS/HR Sodium Chloride 10 ml Q8HR IV 10/27/24 06:00 10/28/24 05:15 10 ML Acetaminophen/ Hydrocodone Bitart 1 tab Q4HP PRN PO 10/27/24 01:00 10/28/24 13:23 1 TAB Ondansetron HCl 4 mg Q4HP PRN IV 10/27/24 01:00 Docusate Sodium 100 mg BIDPRN PRN PO 10/27/24 01:00 Acetaminophen 650 mg Q6HP PRN PO 10/27/24 01:00 Nitroglycerin 0.4 mg Q5MINP PRN SL 10/27/24 03:00 Morphine Sulfate 2 mg Q30M PRN IV 10/27/24 03:00 Diagnostic Test (Pha) 1 strip IQ4HR 10/27/24 12:00 10/28/24 13:26 1 STRIP Insulin Human Regular IQ4HR SC 10/27/24 12:00 10/28/24 13:29 6 UNITS Dextrose 50 ml UD PRN IV 10/27/24 08:30 Sodium Bicarbonate 150 ml/Dextrose 1,150 ml @ 100 mls/hr [id number] IV 10/27/24 12:30 10/28/24 05:04 100 MLS/HR Pantoprazole Sodium 40 mg BID IV 10/27/24 22:00 10/28/24 08:54 40 MG Insulin Glargine 10 units QAM SC 10/28/24 07:00 10/28/24 06:38 10 UNITS Hydralazine HCl 10 mg Q6HP PRN IV 10/28/24 10:45 Nifedipine 30 mg DAILY PO 10/29/24 10:00 Laboratory Results Laboratory Tests 10/28/24 05:46 Chemistry Test 10/27/24 21:07 10/28/24 05:46 Calcium Level 8.8 mg/dL (8.7-10.4) 8.3 mg/dL (8.7-10.4) L Albumin 2.9 g/dL (3.2-4.8) L Total Protein 5.3 g/dL (5.7-8.2) L LFT Test 10/28/24 05:46 Alanine Aminotransferase (ALT) 10 U/L (7-40) Alkaline Phosphatase 58 U/L (46-116) Aspartate Amino Transferase (AST) 15 U/L (13-40) Total Bilirubin 0.3 mg/dL (0.2-1.0) Urinalysis Test 10/26/24 20:23 Urine Color Light-yellow (Yellow) Urine Clarity Turbid (Clear) H Urine pH 6.0 (5.0-9.0) Urine Specific [place] 1.016 (1.001-1.035) Urine Protein 3+ (Negative) H Urine Ketones Negative (Negative) Urine Blood 1+ /uL (Negative) H Urine Nitrite Negative (Negative) Urine Bilirubin Negative (Negative) Urine Urobilinogen Normal mg/dL (Negative) Urine Leukocyte Esterase Trace /uL (Negative) Urine RBC 5 /hpf (0 - 4) Urine WBC 54 /hpf (0 - 5) Urine Squamous Epithelial Cells Few /hpf (<5) Urine Amorphous Crystals Few /hpf (None Seen) Urine Bacteria Few /hpf (None Seen) H Urine Glucose 3+ mg/dL (Normal) H Blood Gas Results Test 10/27/24 20:35 Arterial Blood pH 7.380 (7.350-7.450) FiO2 % 21.0 Microbiology Microbiology Date/Time Source Procedure Growth Status 10/27/24 12:00 Urine - [place] Urine Culture - Preliminary Resulted 10/26/24 20:00 Blood Blood Culture - Preliminary NO GROWTH AFTER 24 HOURS OF INCUBATION. Resulted Labs and/or images reviewed: Labs reviewed by me Assessment/Plan Assessment/Plan Sepsis due to UTI/cellulitis UTI Preseptal cellulitis Facial cellulitis Right eye orbital cellulitis Hyperglycemia, Hgb: 6.0 Severe enema status post 4 blood transfusion GI bleed Melena rule out GI bleed Diabetes mellitus type II Hyperkalemia Mild hyponatremia MONICA ESRD, (GFR 4) Plan Continue Vancomycin Continue Clindamycin We will add cefepime 1 g IV q.day Protonix 40mg bid Lantus 10 unit daily Moderate sliding scale N/S maintainence at 100ml/hr Check and replace electrolytes Hyperkalemia protocol Repeat labs in the AM GI consult Nephrology consult Cardiology consult Regarding to Ophthalmology consult , we do not have director of infection control on board. We will discuss with keycase assembler and transfer the patient to higher level of care for inpatient ophthalmology for orbital cellulitis of the right eye. Discuss with and patient at bedside regarding to plan of care. Code status: Full This medical document was created using an electronic medical record system with M*M flurency direct computerized dictation system. Although this document has been carefully reviewed, there may still be some phonetic and typographical errors. These areas are purely typographical due to imperfections of the software programs, and do not reflect any compromise in the patient's medical care. Plan discussed with: Patient, Spouse Date of Service: Oct 28, 2024 Billing Provider: NIYAH VUONG MD Common Visit Codes: [id number] INP/OBS CARE(HIGH) NIYAH VUONG MD Oct 28, 2024 14:16
--- NOTE | 2024-10-28 16:35 | DVHPN2 ---
Progress Note - Dictate Date Seen: Oct 28, 2024 Has the PT tested + for MRSA If YES, has PT been informed?: No Medical Necessity Reason Pt with a Central, PICC or Fol: Yes The following are medically ne: Pablo Catheter Subjective No acute complaints ; persistent leukocytosis and hyperglycemia Tolerating small portions of her carb controlled renal diet Hemoglobin is up to 9.6 after 4 units PRBC No active GI bleeding reported Patient has not been dialyzed yet Iron profile consistent with anemia of chronic disease likely due to acute on chronic renal failure Patient stated she had a recent colonoscopy a few years ago which was negative vital signs Vital Sign Date Time Temp Pulse Resp B/P (MAP) Pulse Ox O2 Delivery O2 Flow Rate FiO2 10/28/24 13:23 160/87 10/28/24 13:00 98.6 98 16 95 98.6 10/27/24 23:56 Room Air* 0 21 Total Intake and Output 10/27/24 10/27/24 10/28/24 15:00 23:00 07:00 Intake Total 1750 ml 600 ml 2450 ml Output Total 625 ml 0 ml 700 ml Balance 1125 ml 600 ml 1750 ml medications Current Medications Medications Dose Ordered Sig/Ray Route Start Time Stop Time Status Last Admin Dose Admin Vancomycin HCl 0 ml @ 0 mls/hr UD IV 10/26/24 20:00 Clindamycin Phosphate 50 ml @ 50 mls/hr Q8HR IV 10/27/24 06:00 10/28/24 13:24 50 MLS/HR Sodium Chloride 10 ml Q8HR IV 10/27/24 06:00 10/28/24 05:15 10 ML Acetaminophen/ Hydrocodone Bitart 1 tab Q4HP PRN PO 10/27/24 01:00 10/28/24 13:23 1 TAB Ondansetron HCl 4 mg Q4HP PRN IV 10/27/24 01:00 Docusate Sodium 100 mg BIDPRN PRN PO 10/27/24 01:00 Acetaminophen 650 mg Q6HP PRN PO 10/27/24 01:00 Nitroglycerin 0.4 mg Q5MINP PRN SL 10/27/24 03:00 Morphine Sulfate 2 mg Q30M PRN IV 10/27/24 03:00 Diagnostic Test (Pha) 1 strip IQ4HR 10/27/24 12:00 10/28/24 13:26 1 STRIP Insulin Human Regular IQ4HR SC 10/27/24 12:00 10/28/24 13:29 6 UNITS Dextrose 50 ml UD PRN IV 10/27/24 08:30 Sodium Bicarbonate 150 ml/Dextrose 1,150 ml @ 100 mls/hr [id number] IV 10/27/24 12:30 10/28/24 05:04 100 MLS/HR Pantoprazole Sodium 40 mg BID IV 10/27/24 22:00 10/28/24 08:54 40 MG Insulin Glargine 10 units QAM SC 10/28/24 07:00 10/28/24 06:38 10 UNITS Hydralazine HCl 10 mg Q6HP PRN IV 10/28/24 10:45 Nifedipine 30 mg DAILY PO 10/29/24 10:00 Cefepime HCl 50 ml @ 12.5 mls/hr DAILY IV 10/29/24 10:00 UNV objective General Appearance: Alert, Oriented X3, Cooperative, No acute distress Head: Right eye hordeolum with swelling pus discharge and eyelid was matted, left eye is meredith Lungs: Clear to auscultation, Normal air movement Cardiovascular: Regular rate, Normal S1, Normal S2, No murmurs, no chest wall tenderness Abdominal: NO distention, no tenderness, bowel sounds present, no scars noted Extremities: No clubbing, No cyanosis, No edema, Normal pulses, No tenderness/swelling Skin: No rashes, No breakdown, No significant lesion Neuro: Normal gait, Normal speech, Strength at 5/5 X4 ext, Normal tone, Psych/Mental Status: Mental status NL, Mood NL laboratory and microbiology Laboratory Tests 10/28/24 05:46 Test 10/28/24 05:46 Range/Units Serum Glucose 172 H 74-106 mg/dL Problems(with codes): (1) Metabolic acidosis (2) Severe anemia (3) Leukocytosis, unspecified (4) Facial cellulitis (5) Acute renal failure (6) Hyperkalemia (7) Hyperglycemia (8) Orbital cellulitis Prognosis Plan Continue observation from GI point of view IV Protonix 40 mg q.12 hours ; stool for occult blood pending I do not believe she has any active GI bleeding and likely anemia is related to acute renal failure Better glycemic control so her so orbital cellulitis will heal faster Awaiting ophthalmology consult Repeat CMP to monitor her electrolytes I will follow up patient with you Plan discussed with: Patient, Other (Nurse) CC Plasma Assessment Blood Product Administration S: [id number] MILTON GRANDE MD Oct 28, 2024 16:35
[2024-10-29] VITALS (7 sets, daily range): BP systolic 117–145; BP diastolic 60–99; PULSE 96–119; RESP 16–20; TEMP 98–101.7; O2SAT 83–97
[2024-10-29 07:34] LABS: Anion Gap 12 (5-15); Carbon Dioxide 22 mmol/L (20-31); Chloride 104 mmol/L (98-107); Potassium 4.1 mmol/L (3.5-5.1); Sodium 138 mmol/L (136-145)
[2024-10-29 07:39] LABS: BUN/Creatinine Ratio 8.4 (10.0-20.0)
[2024-10-29 07:49] LABS: Basophils # (auto) 0 10 ^3/uL (0-0.2); Basophils % (auto) 0.2 % (0.0-2.0); Eosinophils # (auto) 0.3 10 ^3/uL (0-0.8); Eosinophils % (auto) 2.1 % (0.0-7.0); Hematocrit 28.5 % (36.0-46.0); Hemoglobin 9.6 g/dL (12.2-16.2); Lymphocytes # (auto) 0.6 10 ^3/uL (0.4-5.4); Mean Corpuscular Hemoglobin 29.7 pg (28.0-32.0); Mean Corpuscular Hgb Conc. 33.6 g/dL (32.0-36.0); Mean Corpuscular Volume 88.3 fL (80.0-100.0); Monocytes % (auto) 6.7 % (0.0-12.0); Neutrophils # (auto) 13.3 10 ^3/uL (1.6-8.6); Platelet Count (auto) 256 10^3/uL (140-450); Red Blood Cells 3.22 10^6/uL (4.0-5.20); Red Cell Distribution Width 15.2 % (11.8-14.3); White Blood Cell 15.3 10^3/uL (4.4-10.8)
[2024-10-29 07:58] LABS: Blood Urea Nitrogen 68 mg/dL (9-23); Calcium 8.3 mg/dL (8.7-10.4); Glucose 230 mg/dL (74-106)
[2024-10-29] MEDS: ACETAMINOPHEN 325 MG TAB PO PRN (09:40)
[2024-10-29] MEDS: CEFEPIME 1GM/ 50ML 50 ML IV SCH (09:40)
[2024-10-29] MEDS: NIFEdipine ER 30 MG TAB PO SCH (09:41)
--- NOTE | 2024-10-29 13:36 | DVHPN2 ---
Progress Note Date Seen: Oct 29, 2024 Has the PT tested + for MRSA If YES, has PT been informed?: No Medical Necessity Reason Pt with a Central, PICC or Fol: Yes The following are medically ne: Pablo Catheter Subjective Other Systems: pt resting seen with RN Objective vital signs Vital Sign Date Time Temp Pulse Resp B/P (MAP) Pulse Ox O2 Delivery O2 Flow Rate FiO2 10/29/24 10:40 99.0 10/29/24 09:41 145/88 10/29/24 09:00 119 18 90 10/29/24 08:00 Room Air* 0 21 Total Intake and Output 10/28/24 10/28/24 10/29/24 15:00 23:00 07:00 Intake Total 840 ml 1530 ml 250 ml Output Total 450 ml 350 ml Balance 840 ml 1080 ml -100 ml medications Current Medications Medications Dose Ordered Sig/Ray Route Start Time Stop Time Status Last Admin Dose Admin Vancomycin HCl 0 ml @ 0 mls/hr UD IV 10/26/24 20:00 Clindamycin Phosphate 50 ml @ 50 mls/hr Q8HR IV 10/27/24 06:00 10/29/24 05:40 50 MLS/HR Sodium Chloride 10 ml Q8HR IV 10/27/24 06:00 10/29/24 05:41 10 ML Acetaminophen/ Hydrocodone Bitart 1 tab Q4HP PRN PO 10/27/24 01:00 10/28/24 13:23 1 TAB Ondansetron HCl 4 mg Q4HP PRN IV 10/27/24 01:00 Docusate Sodium 100 mg BIDPRN PRN PO 10/27/24 01:00 Acetaminophen 650 mg Q6HP PRN PO 10/27/24 01:00 10/29/24 09:40 650 MG Nitroglycerin 0.4 mg Q5MINP PRN SL 10/27/24 03:00 Morphine Sulfate 2 mg Q30M PRN IV 10/27/24 03:00 Diagnostic Test (Pha) 1 strip IQ4HR 10/27/24 12:00 10/29/24 12:57 1 STRIP Insulin Human Regular IQ4HR SC 10/27/24 12:00 10/29/24 12:58 3 UNITS Dextrose 50 ml UD PRN IV 10/27/24 08:30 Sodium Bicarbonate 150 ml/Dextrose 1,150 ml @ 100 mls/hr [id number] IV 10/27/24 12:30 10/28/24 21:56 100 MLS/HR Pantoprazole Sodium 40 mg BID IV 10/27/24 22:00 10/29/24 09:40 40 MG Insulin Glargine 10 units QAM SC 10/28/24 07:00 10/29/24 06:33 10 UNITS Hydralazine HCl 10 mg Q6HP PRN IV 10/28/24 10:45 Nifedipine 30 mg DAILY PO 10/29/24 10:00 10/29/24 09:41 30 MG Cefepime HCl 50 ml @ 12.5 mls/hr DAILY IV 10/29/24 10:00 10/29/24 09:40 12.5 MLS/HR Examination: GENERAL:Abnormal, HEENT:Abnormal, LUNGS:Abnormal, CVS:Abnormal, ABDOMEN:Abnormal laboratory and microbiology Laboratory Tests 10/29/24 07:08 Test 10/29/24 07:08 Range/Units Serum Glucose 230 H 74-106 mg/dL Microbiology Date/Time Source Procedure Growth Status 10/27/24 12:00 Urine - [place] Urine Culture - Final Complete 10/26/24 20:00 Blood Blood Culture - Preliminary NO GROWTH AFTER 48 HOURS OF INCUBATION. Resulted Problem List/Assessment/Plan Problem List/Assessment/Plan Right preseptal facial cellulitis Severe anemia status post PRBCs MONICA on advanced CKD with associated hyperkalemia Hypertensive urgency Rule out left upper extremity DVT Dfp-[id number]-yoodlsjwv diabetes mellitus Anasarca cephalic vein thrombus---typically conservative management warm compresses unless it extends to deep system new onset LV dysfunction- --prn diuretics severe anemia--seen By GI poor prognosis Plan discussed with: Other (rn) Date of Service: Oct 29, 2024 Billing Provider: DELORES JIANG MD Common Visit Codes: NOT BILLABLE CC Plasma Assessment Blood Product Administration S: [id number] DELORES JIANG MD Oct 29, 2024 13:36
[2024-10-29 15:06] LABS: Complement C3 119 mg/dL (82-167)
--- NOTE | 2024-10-29 16:47 | DVHPNRES ---
Progress Note Date Seen: Oct 29, 2024 Resident Creating Document: JEANETTE BEDOYA RESIDENT Has the PT tested + for MRSA If YES, has PT been informed?: No Medical Necessity Reason Pt with a Central, PICC or Fol: Yes The following are medically ne: Pablo Catheter Medical Necessity Reason preseptal cellulitis is getting better patient running fever and oxygen saturation is decreasing. Subjective Review of Systems This is a 54-year-old female who the past medical history of diabetes and kidney disease presented to the [facility] with the compliant of right eye swelling, redness, and persistent discharge for a proximally 4 days duration. Per patient, she woke up from bed 4 days ago and noted that her right eye was swollen and discharging fluid. Patient said she used [id number]-hyzrhpy topical medications without any improvement. This as the day progresses so did the swelling to the point that yesterday patient was unable to open her eyes as it was filled with pus. Patient was then advised to come to the ED for evaluation and management. In the ED, patient denied chest pain, no headache, no dizziness, no diaphoresis, no shortness of breath, no nausea, no vomiting, fever, no chills. Initial vital data showed BP:124/68, HR: 92, temp: 97.8 F, O2 saturation 98% on room air. Lab work showed WBC 19.9, hemoglobin 5.2, hematocrit 17.5, platelets 370, sodium 136, potassium 6.6, BUN 77, creatinine 9.53, GFR 5, glucose 230, AST 10, ALT 11. Maxillofacial CT revealing right preseptal cellulitis as well as cellulitis along the anterior lateral right cheek. Patient was started on IV antibiotic regimen vancomycin, received 2 units of PRBC. On my evaluation, patient was bed with her right eye closed with pus discharging. Patient expressed tenderness her right eye swelling red. PN: 10/29/2024: Patient is seen and examined at the bedside with her present. Ocular cellulitis is decreasing , but still has some drainage coming from the right eye. I showed patient how to use wet and warm wash cloth or gauze to gently wipe off the thick pus from her eye. I also showed her to use warm compress with gentle eyelid massage. Patient noted to have fever,but no cough. This afternoon, her nurse called to tell me that patient SpO2 is in the 80s. I order chest x-ray stat, abg stat and called RT. Temp is 99.9, pulse 119, SpO 2: 90, hb: 9.6 Objective vital signs Vital Sign Date Time Temp Pulse Resp B/P (MAP) Pulse Ox O2 Delivery O2 Flow Rate FiO2 10/29/24 15:41 99.2 10/29/24 13:00 104 16 117/61 (79) 90 10/29/24 08:00 Room Air* 0 21 Total Intake and Output 10/28/24 10/28/24 10/29/24 15:00 23:00 07:00 Intake Total 840 ml 1530 ml 250 ml Output Total 450 ml 350 ml Balance 840 ml 1080 ml -100 ml medications Current Medications Medications Dose Ordered Sig/Ray Route Start Time Stop Time Status Last Admin Dose Admin Vancomycin HCl 0 ml @ 0 mls/hr UD IV 10/26/24 20:00 Clindamycin Phosphate 50 ml @ 50 mls/hr Q8HR IV 10/27/24 06:00 10/29/24 15:17 50 MLS/HR Sodium Chloride 10 ml Q8HR IV 10/27/24 06:00 10/29/24 15:18 10 ML Acetaminophen/ Hydrocodone Bitart 1 tab Q4HP PRN PO 10/27/24 01:00 10/28/24 13:23 1 TAB Ondansetron HCl 4 mg Q4HP PRN IV 10/27/24 01:00 Docusate Sodium 100 mg BIDPRN PRN PO 10/27/24 01:00 Acetaminophen 650 mg Q6HP PRN PO 10/27/24 01:00 10/29/24 15:41 650 MG Nitroglycerin 0.4 mg Q5MINP PRN SL 10/27/24 03:00 Morphine Sulfate 2 mg Q30M PRN IV 10/27/24 03:00 Diagnostic Test (Pha) 1 strip IQ4HR 10/27/24 12:00 10/29/24 12:57 1 STRIP Insulin Human Regular IQ4HR SC 10/27/24 12:00 10/29/24 12:58 3 UNITS Dextrose 50 ml UD PRN IV 10/27/24 08:30 Sodium Bicarbonate 150 ml/Dextrose 1,150 ml @ 100 mls/hr [id number] IV 10/27/24 12:30 10/28/24 21:56 100 MLS/HR Pantoprazole Sodium 40 mg BID IV 10/27/24 22:00 10/29/24 09:40 40 MG Insulin Glargine 10 units QAM SC 10/28/24 07:00 10/29/24 06:33 10 UNITS Hydralazine HCl 10 mg Q6HP PRN IV 10/28/24 10:45 Nifedipine 30 mg DAILY PO 10/29/24 10:00 10/29/24 09:41 30 MG Cefepime HCl 50 ml @ 12.5 mls/hr DAILY IV 10/29/24 10:00 10/29/24 09:40 12.5 MLS/HR Examination General Appearance: Alert, Oriented X3, Cooperative, No acute distress, cold Head: Atraumatic Eye: RIGHT -->Hordelum, Eyelid swelling, pus discharges, eyelids matted, --> less drainage today Left: normal Ear: no discharge noted Nose:no discharge noted Respiratory: Clear to auscultation, Normal air movement Cardiovascular: Regular rate, Normal S1, Normal S2, No murmurs, no chest wall tenderness Abdominal: NO distention, no tenderness, bowel sounds present, no scars noted Extremities: No clubbing, No cyanosis, No edema, Normal pulses, No tenderness/swelling Skin: No rashes, No breakdown, No significant lesion Neuro: Normal gait, Normal speech, Strength at 5/5 X4 ext, Normal tone, Sensation intact, Cranial nerves 3-12 NL, Reflexes 2+ Psych/Mental Status: Mental status NL, Mood NL laboratory and microbiology laboratory and microbiology Laboratory Tests 10/29/24 07:08 Test 10/29/24 07:08 Range/Units Serum Glucose 230 H 74-106 mg/dL Microbiology Date/Time Source Procedure Growth Status 10/27/24 12:00 Urine - [place] Urine Culture - Final Complete 10/26/24 20:00 Blood Blood Culture - Preliminary NO GROWTH AFTER 48 HOURS OF INCUBATION. Resulted Problem List/Assessment/Plan Problem List/Assessment/Plan Assessment Severe Sepsis due to UTI/cellulitis UTI Metabolic acidosis Preseptal cellulitis Facial cellulitis Hyperglycemia, Hgb: 9.6 Severe enema status post 4 blood transfusion, hb: 9.3 Rule out GI bleed Melena rule out GI bleed Diabetes mellitus type II Hyperkalemia Mild hyponatremia Acute kidney injury likely septic ATN versus other etiology ESRD, (GFR 4) Plan Continue Vancomycin Continue Clindamycin Continue Cefepime Protonix 40mg bid Lantus 10 unit daily Moderate sliding scale N/S maintainence at 100ml/hr Check and replace electrolytes Hyperkalemia protocol Repeat labs in the AM GI consult Nephrology following Cardiology: No intervention at this time Code status: Full Goal of care discussed for more than 45 minutes Case and plan reviewed with Dr. John Plan discussed with: Patient, Spouse My Orders My Orders Orders - JEANETTE BEDOYA RESIDENT Procedure Category Date Status Time Chest Xray 1 View XY 10/29/24 Logged 16:20 Abg W/ Co-Ox RT 10/29/24 Logged 16:20 CC Plasma Assessment Blood Product Administration S: [id number] Date of Service: Oct 29, 2024 Billing Provider: LUIS JOHN MD Common Visit Codes: [id number] INP/OBS CARE(HIGH) JEANETTE BEDOYA Oct 29, 2024 16:47 LUIS JOHN MD Oct 29, 2024 20:02
--- NOTE | 2024-10-29 17:07 | DVH ---
CHEST RADIOGRAPH Indication: low oxygen saturation Technique: Single frontal view of the chest was obtained COMPARISON: None FINDINGS: Lines and Tubes: None Lungs: Multifocal airspace disease. Pleura: No effusion. No pneumothorax. Cardiomediastinal contours: Cardiomegaly Bones: Unremarkable IMPRESSION: Multifocal airspace disease.
[2024-10-29 17:26] LABS: Base Excess 0.5 mmol/L (-2.0-3.0)
--- NOTE | 2024-10-29 17:56 | DVHPN2 ---
Progress Note Date Seen: Oct 29, 2024 Has the PT tested + for MRSA If YES, has PT been informed?: No Medical Necessity Reason Pt with a Central, PICC or Fol: Yes The following are medically ne: Pablo Catheter Subjective Patient reports: No new complaints (No new complaints), Other Review of Systems: Deferred Objective vital signs Vital Sign Date Time Temp Pulse Resp B/P (MAP) Pulse Ox O2 Delivery O2 Flow Rate FiO2 10/29/24 17:00 99.2 100 20 123/65 (84) 83 99.2 10/29/24 08:00 Room Air* 0 21 Total Intake and Output 10/28/24 10/28/24 10/29/24 15:00 23:00 07:00 Intake Total 840 ml 1530 ml 250 ml Output Total 450 ml 350 ml Balance 840 ml 1080 ml -100 ml medications Current Medications Medications Dose Ordered Sig/Ray Route Start Time Stop Time Status Last Admin Dose Admin Vancomycin HCl 0 ml @ 0 mls/hr UD IV 10/26/24 20:00 Clindamycin Phosphate 50 ml @ 50 mls/hr Q8HR IV 10/27/24 06:00 10/29/24 15:17 50 MLS/HR Sodium Chloride 10 ml Q8HR IV 10/27/24 06:00 10/29/24 15:18 10 ML Acetaminophen/ Hydrocodone Bitart 1 tab Q4HP PRN PO 10/27/24 01:00 10/28/24 13:23 1 TAB Ondansetron HCl 4 mg Q4HP PRN IV 10/27/24 01:00 Docusate Sodium 100 mg BIDPRN PRN PO 10/27/24 01:00 Acetaminophen 650 mg Q6HP PRN PO 10/27/24 01:00 10/29/24 15:41 650 MG Nitroglycerin 0.4 mg Q5MINP PRN SL 10/27/24 03:00 Morphine Sulfate 2 mg Q30M PRN IV 10/27/24 03:00 Diagnostic Test (Pha) 1 strip IQ4HR 10/27/24 12:00 10/29/24 12:57 1 STRIP Insulin Human Regular IQ4HR SC 10/27/24 12:00 10/29/24 12:58 3 UNITS Dextrose 50 ml UD PRN IV 10/27/24 08:30 Sodium Bicarbonate 150 ml/Dextrose 1,150 ml @ 100 mls/hr [id number] IV 10/27/24 12:30 10/28/24 21:56 100 MLS/HR Pantoprazole Sodium 40 mg BID IV 10/27/24 22:00 10/29/24 09:40 40 MG Insulin Glargine 10 units QAM SC 10/28/24 07:00 10/29/24 06:33 10 UNITS Hydralazine HCl 10 mg Q6HP PRN IV 10/28/24 10:45 Nifedipine 30 mg DAILY PO 10/29/24 10:00 10/29/24 09:41 30 MG Cefepime HCl 50 ml @ 12.5 mls/hr DAILY IV 10/29/24 10:00 10/29/24 09:40 12.5 MLS/HR Examination: GENERAL:Abnormal, HEENT:Abnormal, LUNGS:Abnormal, MSK:Abnormal, SKIN:Abnormal, NEURO:Abnormal laboratory and microbiology Laboratory Tests 10/29/24 07:08 Test 10/29/24 07:08 Range/Units Serum Glucose 230 H 74-106 mg/dL Microbiology Date/Time Source Procedure Growth Status 10/27/24 12:00 Urine - [place] Urine Culture - Final Complete 10/26/24 20:00 Blood Blood Culture - Preliminary NO GROWTH AFTER 48 HOURS OF INCUBATION. Resulted Problem List/Assessment/Plan Problem List/Assessment/Plan Acute kidney injury likely septic ATN in the setting of severe sepsis Baseline Chronic kidney disease IIIb versus4 Hyperkalemia Metabolic acidosis Severe sepsis/periorbital cellulitis Anemia with black stool --gi bleeding? Recommendations DC IV fluids given echo findings and hypoxic event---patient received enough IV fluids Bumex IV b.i.d. as ordered no indication for emergent HD for now Higher level of care recommended for eye eval We will follow Labs as ordered Nonoliguric Renally dose antibiotics to GFR evaluate [employer]ER [employer]ER needs daily s/p prbc Plan discussed with: Patient, Spouse, Other My Orders My Orders Orders - BRYN NGUYỄN MD Procedure Category Date Status Time Sodium Chloride 0.9% PHA 10/29/24 Logged 18:00 Bumetanide Injection PHA 10/29/24 Logged (Bumex Injection) 18:00 Communication Order ORDERS 10/29/24 Transmitted 17:53 CC Plasma Assessment Blood Product Administration S: [id number] BRYN NGUYỄN MD Oct 29, 2024 17:56
[2024-10-29] MEDS ORDERED: BUMETANIDE 2.5mg/10ml (0.25 mg/ml) INJ IV SCH ×2 (18:00)
[2024-10-29] MEDS ORDERED: SODIUM CHLORIDE 0.9% 1,000 ML IV SCH (18:00)
[2024-10-29] MEDS: BUMETANIDE 2.5mg/10ml (0.25 mg/ml) INJ IV ONE (18:29)
[2024-10-29] MEDS: BUMETANIDE INJECTION 25 MG in GIVE UN-DILUTED 0 ML IV SCH (18:31)
[2024-10-29] MEDS: FUROSEMIDE 20 MG/2 ML VIAL IV ONE (18:54)
[2024-10-29] MEDS: ERYTHROMY OPTH OINT 5mg/gm 1gm or 3.5gm tube OP ONE (22:30)
[2024-10-30] VITALS (14 sets, daily range): BP systolic 123–154; BP diastolic 73–85; PULSE 88–111; RESP 17–20; TEMP 97.7–100.3; O2SAT 87–98
[2024-10-30] MEDS: ENOXAPARIN SOD 60 MG/0.6 ML SYRINGE SC ONE (01:07)
[2024-10-30] MEDS: ERYTHROMY OPTH OINT 5mg/gm 1gm or 3.5gm tube OP SCH (01:07)
[2024-10-30 07:01] LABS: Basophils # (auto) 0 10 ^3/uL (0-0.2); Basophils % (auto) 0.2 % (0.0-2.0); Eosinophils # (auto) 0.3 10 ^3/uL (0-0.8); Eosinophils % (auto) 2.4 % (0.0-7.0); Hematocrit 30.4 % (36.0-46.0); Lymphocytes # (auto) 0.7 10 ^3/uL (0.4-5.4); Lymphocytes % (auto) 6.2 % (10.0-50.0); Mean Corpuscular Hemoglobin 29.3 pg (28.0-32.0); Mean Corpuscular Hgb Conc. 32.9 g/dL (32.0-36.0); Mean Corpuscular Volume 89.1 fL (80.0-100.0); Monocytes # (auto) 1.3 10 ^3/uL (0-1.3); Neutrophils # (auto) 8.7 10 ^3/uL (1.6-8.6); Neutrophils % (auto) 79.2 % (37.0-80.0); Platelet Count (auto) 239 10^3/uL (140-450); Red Blood Cells 3.41 10^6/uL (4.0-5.20); Red Cell Distribution Width 15.1 % (11.8-14.3)
[2024-10-30 07:12] LABS: Anion Gap 12 (5-15); Carbon Dioxide 22 mmol/L (20-31); Chloride 101 mmol/L (98-107); Potassium 4.4 mmol/L (3.5-5.1)
[2024-10-30 07:18] LABS: BUN/Creatinine Ratio 7.8 (10.0-20.0); Blood Urea Nitrogen 65 mg/dL (9-23); Calcium 8.3 mg/dL (8.7-10.4); Glucose 98 mg/dL (74-106); Sodium 135 mmol/L (136-145)
[2024-10-30] MEDS: FUROSEMIDE 20 MG/2 ML VIAL IV SCH (07:46)
--- NOTE | 2024-10-30 09:27 | ECG ---
[facility] Test Date: 2024-10-27 Test Time: 08:40:42 Pat Name: NARCISA LINN Department: ER Room: Cath ICU Gender: F Radiology Rn: ALFREDA : 1970 Requested By: TIESHA NEGRON Order Number: [id number] Reading MD: Jarad Parker Measurements Intervals [place] Rate: 107 P: 64 KS: 141 QRS: 16 QRSD: 78 T: 151 QT: 301 QTc: 402 Interpretive Statements Sinus tachycardia Repol abnrm suggests ischemia, lateral leads Electronically Signed On 11-02-2024 9:50:16 PST by Jarad Parker Please click the below link to view image of tracing.
--- NOTE | 2024-10-30 09:50 | DVHPNRES ---
Progress Note Date Seen: Oct 30, 2024 Resident Creating Document: JEANETTE BEDOYA RESIDENT Has the PT tested + for MRSA If YES, has PT been informed?: No Medical Necessity Reason Pt with a Central, PICC or Fol: Yes The following are medically ne: Pablo Catheter Medical Necessity Reason critically ill Severe Sepsis Pneumonia ATN Subjective Review of Systems Review of Systems This is a 54-year-old female who the past medical history of diabetes and kidney disease presented to the [facility] with the compliant of right eye swelling, redness, and persistent discharge for a proximally 4 days duration. Per patient, she woke up from bed 4 days ago and noted that her right eye was swollen and discharging fluid. Patient said she used [id number] topical medications without any improvement. This as the day progresses so did the swelling to the point that yesterday patient was unable to open her eyes as it was filled with pus. Patient was then advised to come to the ED for evaluation and management. In the ED, patient denied chest pain, no headache, no dizziness, no diaphoresis, no shortness of breath, no nausea, no vomiting, fever, no chills. Initial vital data showed BP:124/68, HR: 92, temp: 97.8 F, O2 saturation 98% on room air. Lab work showed WBC 19.9, hemoglobin 5.2, hematocrit 17.5, platelets 370, sodium 136, potassium 6.6, BUN 77, creatinine 9.53, GFR 5, glucose 230, AST 10, ALT 11. Maxillofacial CT revealing right preseptal cellulitis as well as cellulitis along the anterior lateral right cheek. Patient was started on IV antibiotic regimen vancomycin, received 2 units of PRBC. On my evaluation, patient was bed with her right eye closed with pus discharging. Patient expressed tenderness her right eye swelling red. PN: 10/29/2024: Patient is seen and examined at the bedside with her present. Ocular cellulitis is decreasing , but still has some drainage coming from the right eye. I showed patient how to use wet and warm wash cloth or gauze to gently wipe off the thick pus from her eye. I also showed her to use warm compress with gentle eyelid massage. Patient noted to have fever,but no cough. This afternoon, her nurse called to tell me that patient SpO2 is in the 80s. I order chest x-ray stat, abg stat and called RT. Temp is 99.9, pulse 119, SpO 2: 90, hb: 9.6 PN: 10/30/2024: Patient is seen and examined at the bedside. Her ocular cellulitis is improving in size and also in redness. She has a thrombosis in the cephalic vein of the left arm a superficial vein with discoloration of her left up extremity. Also patient has been bend bound so will start her on prophylatic lovenox. Labs today, WBC: 11 ( trending down), hgb: 10, Iron: 17L, Na: 135, cr: 8.38. Patient seen by the weapons system instrument mechanic. She will start dialysis tomorrow. Objective vital signs Vital Sign Date Time Temp Pulse Resp B/P (MAP) Pulse Ox O2 Delivery O2 Flow Rate FiO2 10/30/24 09:23 123/76 10/30/24 05:00 100.3 103 18 94 100.3 10/29/24 20:00 Nasal Cannula* 4 36 Total Intake and Output 10/29/24 10/29/24 10/30/24 15:00 23:00 07:00 Intake Total 1450 ml 730 ml 240 ml Output Total 250 ml 420 ml Balance 1450 ml 480 ml -180 ml medications Current Medications Medications Dose Ordered Sig/Ray Route Start Time Stop Time Status Last Admin Dose Admin Vancomycin HCl 0 ml @ 0 mls/hr UD IV 10/26/24 20:00 Clindamycin Phosphate 50 ml @ 50 mls/hr Q8HR IV 10/27/24 06:00 10/30/24 05:53 50 MLS/HR Sodium Chloride 10 ml Q8HR IV 10/27/24 06:00 10/30/24 05:54 10 ML Acetaminophen/ Hydrocodone Bitart 1 tab Q4HP PRN PO 10/27/24 01:00 10/30/24 01:11 1 TAB Ondansetron HCl 4 mg Q4HP PRN IV 10/27/24 01:00 Docusate Sodium 100 mg BIDPRN PRN PO 10/27/24 01:00 Acetaminophen 650 mg Q6HP PRN PO 10/27/24 01:00 10/29/24 15:41 650 MG Nitroglycerin 0.4 mg Q5MINP PRN SL 10/27/24 03:00 Morphine Sulfate 2 mg Q30M PRN IV 10/27/24 03:00 Diagnostic Test (Pha) 1 strip IQ4HR 10/27/24 12:00 10/30/24 08:00 1 STRIP Insulin Human Regular IQ4HR SC 10/27/24 12:00 10/29/24 20:08 2 UNITS Dextrose 50 ml UD PRN IV 10/27/24 08:30 Pantoprazole Sodium 40 mg BID IV 10/27/24 22:00 10/30/24 09:22 40 MG Insulin Glargine 10 units QAM SC 10/28/24 07:00 10/29/24 06:33 10 UNITS Hydralazine HCl 10 mg Q6HP PRN IV 10/28/24 10:45 Nifedipine 30 mg DAILY PO 10/29/24 10:00 10/30/24 09:23 30 MG Cefepime HCl 50 ml @ 12.5 mls/hr DAILY IV 10/29/24 10:00 10/30/24 09:22 12.5 MLS/HR Bumetanide 25 mg/ Miscellaneous 100 ml @ 4 mls/hr Q24H IV 10/29/24 18:00 10/29/24 18:31 4 MLS/HR Furosemide 20 mg DAILY IV 10/30/24 10:00 Erythromycin 1 applic Q4HR OP 10/30/24 02:00 Enoxaparin Sodium 40 mg DAILY@0100 SC 10/31/24 01:00 Ipratropium [place] 0.5 mg Q2HPRN PRN NEB 10/30/24 08:00 Albuterol 2.5 mg Q2HPRN PRN NEB 10/30/24 08:00 Examination General Appearance: Alert, Oriented X3, Cooperative, No acute distress, cold Head: Atraumatic Eye: RIGHT -->Hordelum, Eyelid swelling, pus discharges, eyelids matted, --> less drainage today Left: normal Ear: no discharge noted Nose:no discharge noted Respiratory: Clear to auscultation, Normal air movement Cardiovascular: Regular rate, Normal S1, Normal S2, No murmurs, no chest wall tenderness Abdominal: NO distention, no tenderness, bowel sounds present, no scars noted Extremities: Left: swollen, thrombus, bluish discoloration Right: iv lines No clubbing, No cyanosis, No edema, Normal pulses, No tenderness/swelling Skin: No rashes, No breakdown, No significant lesion Neuro: Normal gait, Normal speech, Strength at 5/5 X4 ext, Normal tone, Sensation intact, Cranial nerves 3-12 NL, Reflexes 2+ Psych/Mental Status: Mental status NL, Mood NL laboratory and microbiology Laboratory Tests 10/30/24 06:21 Test 10/30/24 06:21 Range/Units Serum Glucose 98 74-106 mg/dL Microbiology Date/Time Source Procedure Growth Status 10/27/24 12:00 Urine - [place] Urine Culture - Final Complete 10/26/24 20:00 Blood Blood Culture - Preliminary NO GROWTH AFTER 72 HOURS OF INCUBATION. Resulted Problem List/Assessment/Plan Problem List/Assessment/Plan Assessment Severe Sepsis due to UTI/cellulitis UTI Metabolic acidosis Preseptal cellulitis Facial cellulitis Hyperglycemia, Hgb: 9.6 Severe enema status post 4 blood transfusion, hb: 9.3 Rule out GI bleed Melena rule out GI bleed Diabetes mellitus type II Hyperkalemia Mild hyponatremia Acute kidney injury likely septic ATN versus other etiology Pneumonia Pulmonary edema Plan Continue Vancomycin Continue Clindamycin Continue Cefepime erythromycin ointment Protonix 40mg bid Lantus 10 unit daily Moderate sliding scale N/S maintainence at 100ml/hr Check and replace electrolytes Hyperkalemia protocol Repeat labs in the AM GI following Nephrology following Cardiology: No intervention at this time Lovenox bumex by nephrology Nephrology recommending dialysis, tunnel catheter insertion order placed to IR Code status: Full Goal of care discussed for more than 45 minutes Case and plan reviewed with Dr. Clark Plan discussed with: Patient My Orders My Orders Orders - JEANETTE BEDOYA RESIDENT Procedure Category Date Status Time Chest Xray 1 View XY 10/29/24 Resulted 16:20 Abg W/ Co-Ox RT 10/29/24 Logged 16:20 Furosemide Injection PHA 10/30/24 In Process (Lasix Injection) 10:00 Ipratropium Medneb PHA 10/30/24 In Process (Atrovent Medneb) 08:00 Albuterol Medneb PHA 10/30/24 In Process (Ventolin Medneb) 08:00 Ferritin LAB 10/30/24 Verified 09:35 [place] Stain Slide LAB 10/30/24 Verified 09:35 CC Plasma Assessment Blood Product Administration S: [id number] Date of Service: Oct 30, 2024 Billing Provider: LIBAN CLARK MD Common Visit Codes: [id number] INP/OBS CARE(HIGH) JEANETTE BEDOYA RESIDENT Oct 30, 2024 09:50 LIBAN CLARK MD Oct 30, 2024 22:04
[2024-10-30] MEDS: IPRATROPIUM BROM 0.5 MG/2.5ML INH SOL NEB PRN (11:49)
[2024-10-30] MEDS: ALBUTEROL SULF 2.5 MG/0.5ML(0.5%) NEB SOLN NEB PRN (11:49)
[2024-10-30 12:21] LABS: Hepatitis B Surface Antigen Negative (Negative); Hepatitis C Antibody Negative (Negative)
--- NOTE | 2024-10-30 13:25 | DVHPN2 ---
Progress Note Date Seen: Oct 30, 2024 Has the PT tested + for MRSA If YES, has PT been informed?: No Medical Necessity Reason Pt with a Central, PICC or Fol: Yes The following are medically ne: Pablo Catheter Subjective Other Systems: Patient seen and examined by myself today in follow-up Objective vital signs Vital Sign Date Time Temp Pulse Resp B/P (MAP) Pulse Ox O2 Delivery O2 Flow Rate FiO2 10/30/24 13:07 109 20 142/81 94 50 10/30/24 09:00 98.2 98.2 10/30/24 08:00 Nasal Cannula* 4 Total Intake and Output 10/29/24 10/29/24 10/30/24 15:00 23:00 07:00 Intake Total 1450 ml 730 ml 240 ml Output Total 250 ml 420 ml Balance 1450 ml 480 ml -180 ml medications Current Medications Medications Dose Ordered Sig/Ray Route Start Time Stop Time Status Last Admin Dose Admin Vancomycin HCl 0 ml @ 0 mls/hr UD IV 10/26/24 20:00 Clindamycin Phosphate 50 ml @ 50 mls/hr Q8HR IV 10/27/24 06:00 10/30/24 05:53 50 MLS/HR Sodium Chloride 10 ml Q8HR IV 10/27/24 06:00 10/30/24 05:54 10 ML Acetaminophen/ Hydrocodone Bitart 1 tab Q4HP PRN PO 10/27/24 01:00 10/30/24 01:11 1 TAB Ondansetron HCl 4 mg Q4HP PRN IV 10/27/24 01:00 Docusate Sodium 100 mg BIDPRN PRN PO 10/27/24 01:00 Acetaminophen 650 mg Q6HP PRN PO 10/27/24 01:00 10/29/24 15:41 650 MG Nitroglycerin 0.4 mg Q5MINP PRN SL 10/27/24 03:00 Morphine Sulfate 2 mg Q30M PRN IV 10/27/24 03:00 Diagnostic Test (Pha) 1 strip IQ4HR 10/27/24 12:00 10/30/24 12:00 1 STRIP Insulin Human Regular IQ4HR SC 10/27/24 12:00 10/29/24 20:08 2 UNITS Dextrose 50 ml UD PRN IV 10/27/24 08:30 Pantoprazole Sodium 40 mg BID IV 10/27/24 22:00 10/30/24 09:22 40 MG Insulin Glargine 10 units QAM SC 10/28/24 07:00 10/29/24 06:33 10 UNITS Hydralazine HCl 10 mg Q6HP PRN IV 10/28/24 10:45 Nifedipine 30 mg DAILY PO 10/29/24 10:00 10/30/24 09:23 30 MG Cefepime HCl 50 ml @ 12.5 mls/hr DAILY IV 10/29/24 10:00 10/30/24 09:22 12.5 MLS/HR Bumetanide 25 mg/ Miscellaneous 100 ml @ 4 mls/hr Q24H IV 10/29/24 18:00 10/29/24 18:31 4 MLS/HR Furosemide 20 mg DAILY IV 10/30/24 10:00 Erythromycin 1 applic Q4HR OP 10/30/24 02:00 10/30/24 10:48 1 APPLIC Enoxaparin Sodium 40 mg DAILY@0100 SC 10/31/24 01:00 Ipratropium [place] 0.5 mg Q2HPRN PRN NEB 10/30/24 08:00 10/30/24 11:49 0.5 MG Albuterol 2.5 mg Q2HPRN PRN NEB 10/30/24 08:00 10/30/24 11:49 2.5 MG Examination: LUNGS:Normal, CVS:Normal, MSK:Abnormal laboratory and microbiology Laboratory Tests 10/30/24 06:21 Test 10/30/24 06:21 Range/Units Serum Glucose 98 74-106 mg/dL Microbiology Date/Time Source Procedure Growth Status 10/27/24 12:00 Urine - [place] Urine Culture - Final Complete 10/26/24 20:00 Blood Blood Culture - Preliminary NO GROWTH AFTER 72 HOURS OF INCUBATION. Resulted Problem List/Assessment/Plan Problem List/Assessment/Plan Chronic kidney disease stage 5 now end-stage renal disease requiring hemodialysis 3 times weekly Chronic kidney disease stage 4 followed in my clinic Hyperkalemia Metabolic acidosis Right ophthalmitis/periorbital cellulitis Anemia with black stool --gi bleeding? Recommendations Consents for tunneled IJ hemodialysis catheter hemodialysis I discussed risks and benefit hemodialysis with the patient and his at the bedside Radiology consult for tunneled IJ hemodialysis catheter Hemodialysis after catheter placement, use no heparin Social service for outpatient hemodialysis chair time Check hep B surface antigen IV antibiotics Eyedrops GI consult Renal diet We will continue to follow Plan discussed with: Patient My Orders My Orders Orders - DIETER GUZMAN MD Procedure Category Date Status Time Urine Sodium LAB 10/30/24 Logged 10:27 Urine LAB 10/30/24 Logged Protein/Creatinine Urine Creatinine LAB 10/30/24 Logged 10:27 Hemodialysis Orders ORDERS 10/31/24 Transmitted 07:00 Dialysis Nursing OLIVIA 10/31/24 In Process Message 07:00 Heparin Sodium PHA 10/31/24 In Process (Porcine) 07:00 Sodium Chloride 0.9% PHA 10/31/24 In Process 07:00 Document Fluid Input OLIVIA 10/31/24 In Process And Outpu 07:00 Epoetin Ke-Epbx PHA 10/31/24 In Process (Retacrit) 21:00 CC Plasma Assessment Blood Product Administration S: [id number] DIETER GUZMAN MD Oct 30, 2024 13:25
[2024-10-30] MEDS: SEVELAMER 800 MG TAB PO SCH (17:24)
[2024-10-30 18:06] LABS: Antimyeloperoxidase (MPO) Ab <0.2 units (0.0-0.9); Antiproteinase 3 (PR-3) Ab <0.2 units (0.0-0.9)
--- NOTE | 2024-10-30 22:50 | DVHPN2 ---
Progress Note - Dictate Date Seen: Oct 30, 2024 Has the PT tested + for MRSA If YES, has PT been informed?: No Medical Necessity Reason Pt with a Central, PICC or Fol: Yes The following are medically ne: Pablo Catheter Subjective No acute complaints ; leukocytosis and hyperglycemia improving Tolerating small portions of her carb controlled renal diet Hemoglobin is stable upto 10 after 4 units PRBC No active GI bleeding reported Iron profile consistent with anemia of chronic disease likely due to acute on chronic renal failure Patient stated she had a recent colonoscopy a few years ago which was negative vital signs Vital Sign Date Time Temp Pulse Resp B/P (MAP) Pulse Ox O2 Delivery O2 Flow Rate FiO2 10/30/24 20:00 18 98 Oxymizer 10 N/A 10/30/24 19:33 99 10/30/24 17:27 128/72 10/30/24 17:00 98.2 98.2 Total Intake and Output 10/29/24 10/29/24 10/30/24 15:00 23:00 07:00 Intake Total 1450 ml 730 ml 240 ml Output Total 250 ml 420 ml Balance 1450 ml 480 ml -180 ml medications Current Medications Medications Dose Ordered Sig/Ray Route Start Time Stop Time Status Last Admin Dose Admin Vancomycin HCl 0 ml @ 0 mls/hr UD IV 10/26/24 20:00 Clindamycin Phosphate 50 ml @ 50 mls/hr Q8HR IV 10/27/24 06:00 10/30/24 21:03 50 MLS/HR Sodium Chloride 10 ml Q8HR IV 10/27/24 06:00 10/30/24 21:21 10 ML Acetaminophen/ Hydrocodone Bitart 1 tab Q4HP PRN PO 10/27/24 01:00 10/30/24 17:24 1 TAB Ondansetron HCl 4 mg Q4HP PRN IV 10/27/24 01:00 Docusate Sodium 100 mg BIDPRN PRN PO 10/27/24 01:00 Acetaminophen 650 mg Q6HP PRN PO 10/27/24 01:00 10/29/24 15:41 650 MG Nitroglycerin 0.4 mg Q5MINP PRN SL 10/27/24 03:00 Morphine Sulfate 2 mg Q30M PRN IV 10/27/24 03:00 Diagnostic Test (Pha) 1 strip IQ4HR 10/27/24 12:00 10/30/24 20:30 1 STRIP Insulin Human Regular IQ4HR SC 10/27/24 12:00 10/29/24 20:08 2 UNITS Dextrose 50 ml UD PRN IV 10/27/24 08:30 Pantoprazole Sodium 40 mg BID IV 10/27/24 22:00 10/30/24 21:04 40 MG Insulin Glargine 10 units QAM SC 10/28/24 07:00 10/29/24 06:33 10 UNITS Hydralazine HCl 10 mg Q6HP PRN IV 10/28/24 10:45 Nifedipine 30 mg DAILY PO 10/29/24 10:00 10/30/24 09:23 30 MG Cefepime HCl 50 ml @ 12.5 mls/hr DAILY IV 10/29/24 10:00 10/30/24 09:22 12.5 MLS/HR Bumetanide 25 mg/ Miscellaneous 100 ml @ 4 mls/hr Q24H IV 10/29/24 18:00 10/30/24 17:27 4 MLS/HR Furosemide 20 mg DAILY IV 10/30/24 10:00 Erythromycin 1 applic Q4HR OP 10/30/24 02:00 10/30/24 21:04 1 APPLIC Enoxaparin Sodium 40 mg DAILY@0100 SC 10/31/24 01:00 Ipratropium [place] 0.5 mg Q2HPRN PRN NEB 10/30/24 08:00 10/30/24 19:17 0.5 MG Albuterol 2.5 mg Q2HPRN PRN NEB 10/30/24 08:00 10/30/24 19:17 2.5 MG Sevelamer HCl 1,600 mg TIDWM PO 10/30/24 18:00 10/30/24 17:24 1,600 MG objective General Appearance: Alert, Oriented X3, Cooperative, No acute distress Head: Right eye hordeolum with swelling pus discharge and eyelid was matted, left eye is meredith Lungs: Clear to auscultation, Normal air movement Cardiovascular: Regular rate, Normal S1, Normal S2, No murmurs, no chest wall tenderness Abdominal: NO distention, no tenderness, bowel sounds present, no scars noted Extremities: No clubbing, No cyanosis, No edema, Normal pulses, No tenderness/swelling Skin: No rashes, No breakdown, No significant lesion Neuro: Normal gait, Normal speech, Strength at 5/5 X4 ext, Normal tone, Psych/Mental Status: Mental status NL, Mood NL laboratory and microbiology Laboratory Tests 10/30/24 06:21 Test 10/30/24 06:21 Range/Units Serum Glucose 98 74-106 mg/dL Problems(with codes): (1) N&V (nausea and vomiting) (2) Severe anemia (3) Leukocytosis, unspecified (4) Facial cellulitis (5) Hyperglycemia (6) Orbital cellulitis Prognosis PLAN Continue supportive care No active GI bleeding noted Stool for occult blood negative We will discuss a possible EGD with the patient if she is willing Otherwise patient will follow up with GI Services as an outpatient for elective panendoscopy Continue IV antibiotics for her periorbital cellulitis and better glycemic control Dietary Evaluation Review Comments: Recommend liberalize diet to a Renal Standard diet once pt has a routine dialysis treatments scheduled. Expected Outcomes/Goals: less uremic symptoms, improved appetite and improvedd lab values. Plan discussed with: Patient, Other (Dr Patel and J) CC Plasma Assessment Blood Product Administration S: [id number] MILTON GRANDE MD Oct 30, 2024 22:50
[2024-10-31] VITALS (30 sets, daily range): BP systolic 122–176; BP diastolic 65–106; PULSE 87–111; RESP 13–26; TEMP 97.8–100.3; O2SAT 82–98
[2024-10-31] MEDS: ENOXAPARIN SOD 40 MG/0.4 ML SYRINGE SC SCH (00:59)
[2024-10-31] MEDS ORDERED: ENOXAPARIN SOD 60 MG/0.6 ML SYRINGE SC SCH (01:00)
[2024-10-31] MEDS ORDERED: MIDAZOLAM HCL 5 MG/ML-1ML VIAL ONE (09:37)
[2024-10-31] MEDS ORDERED: diphenhdrAMINE HCL 50 MG/1 ML VL ONE (09:37)
[2024-10-31] MEDS ORDERED: LIDOCAINE VISCOUS 2% 15ML UD ONE (09:37)
[2024-10-31] MEDS ORDERED: SODIUM CHLORIDE LOCK 0 ML ONE (09:37)
[2024-10-31] MEDS ORDERED: fentaNYL CITRATE 100 MCG/2 ML VL ONE (09:38)
--- NOTE | 2024-10-31 10:25 | DVHPN2 ---
Progress Note Date Seen: Oct 31, 2024 Has the PT tested + for MRSA If YES, has PT been informed?: No Medical Necessity Reason Pt with a Central, PICC or Fol: Yes The following are medically ne: Pablo Catheter Subjective Patient reports: No new complaints Other Systems: Patient seen and examined by myself today in follow-up Patient examined hemodialysis, blood pressure stable Objective vital signs Vital Sign Date Time Temp Pulse Resp B/P (MAP) Pulse Ox O2 Delivery O2 Flow Rate FiO2 10/31/24 09:12 98.3 98 19 143/80 (101) 90 98.3 10/31/24 07:08 60 10/30/24 20:00 Oxymizer 10 Total Intake and Output 10/30/24 10/30/24 10/31/24 15:00 23:00 07:00 Intake Total 50 ml 800 ml 50 ml Output Total 800 ml 750 ml Balance 50 ml 0 ml -700 ml medications Current Medications Medications Dose Ordered Sig/Ray Route Start Time Stop Time Status Last Admin Dose Admin Vancomycin HCl 0 ml @ 0 mls/hr UD IV 10/26/24 20:00 Clindamycin Phosphate 50 ml @ 50 mls/hr Q8HR IV 10/27/24 06:00 10/31/24 05:34 50 MLS/HR Sodium Chloride 10 ml Q8HR IV 10/27/24 06:00 10/31/24 05:35 10 ML Acetaminophen/ Hydrocodone Bitart 1 tab Q4HP PRN PO 10/27/24 01:00 10/30/24 23:31 1 TAB Ondansetron HCl 4 mg Q4HP PRN IV 10/27/24 01:00 Docusate Sodium 100 mg BIDPRN PRN PO 10/27/24 01:00 Acetaminophen 650 mg Q6HP PRN PO 10/27/24 01:00 10/29/24 15:41 650 MG Nitroglycerin 0.4 mg Q5MINP PRN SL 10/27/24 03:00 Morphine Sulfate 2 mg Q30M PRN IV 10/27/24 03:00 Diagnostic Test (Pha) 1 strip IQ4HR 10/27/24 12:00 10/31/24 08:01 1 STRIP Insulin Human Regular IQ4HR SC 10/27/24 12:00 10/29/24 20:08 2 UNITS Dextrose 50 ml UD PRN IV 10/27/24 08:30 Pantoprazole Sodium 40 mg BID IV 10/27/24 22:00 10/30/24 21:04 40 MG Insulin Glargine 10 units QAM SC 10/28/24 07:00 10/29/24 06:33 10 UNITS Hydralazine HCl 10 mg Q6HP PRN IV 10/28/24 10:45 Nifedipine 30 mg DAILY PO 10/29/24 10:00 10/30/24 09:23 30 MG Cefepime HCl 50 ml @ 12.5 mls/hr DAILY IV 10/29/24 10:00 10/30/24 09:22 12.5 MLS/HR Bumetanide 25 mg/ Miscellaneous 100 ml @ 4 mls/hr Q24H IV 10/29/24 18:00 10/30/24 17:27 4 MLS/HR Erythromycin 1 applic Q4HR OP 10/30/24 02:00 10/31/24 05:35 1 APPLIC Enoxaparin Sodium 40 mg DAILY@0100 SC 10/31/24 01:00 10/31/24 00:59 40 MG Ipratropium [place] 0.5 mg Q2HPRN PRN NEB 10/30/24 08:00 10/31/24 07:08 0.5 MG Albuterol 2.5 mg Q2HPRN PRN NEB 10/30/24 08:00 10/31/24 07:08 2.5 MG Sevelamer HCl 1,600 mg TIDWM PO 10/30/24 18:00 10/30/24 17:24 1,600 MG Examination: LUNGS:Normal, CVS:Normal, MSK:Normal laboratory and microbiology Laboratory Tests 10/30/24 06:21 Test 10/30/24 06:21 Range/Units Serum Glucose 98 74-106 mg/dL Microbiology Date/Time Source Procedure Growth Status 10/27/24 12:00 Urine - [place] Urine Culture - Final Complete 10/26/24 20:00 Blood Blood Culture - Preliminary NO GROWTH AFTER 72 HOURS OF INCUBATION. Resulted Problem List/Assessment/Plan Problem List/Assessment/Plan Chronic kidney disease stage 5 now end-stage renal disease requiring hemodialysis 3 times weekly Chronic kidney disease stage 4 followed in my clinic Hyperkalemia Metabolic acidosis Right ophthalmitis/periorbital cellulitis Anemia with black stool --gi bleeding? Recommendations Continue with UF to 3 L as tolerated, use no heparin Epogen 22664 IV post hemodialysis Hemodialysis again tomorrow for fluid removal Social service for outpatient hemodialysis chair time IV antibiotics Eyedrops GI consult Renal diet We will continue to follow Plan discussed with: Patient, Spouse My Orders My Orders Orders - DIETER GUZMAN MD Procedure Category Date Status Time Urine Sodium LAB 10/30/24 Logged 10:27 Dialysis Nursing OLIVIA 10/31/24 In Process Message 07:00 Document Fluid Input OLIVIA 10/31/24 In Process And Outpu 07:00 Epoetin Ke-Epbx PHA 10/31/24 In Process (Retacrit) 21:00 Hemodialysis Orders ORDERS 10/31/24 Transmitted 07:00 * Splicer Operator CONS 10/30/24 Transmitted Consult Sevelamer (Renagel) PHA 10/30/24 In Process 18:00 Urine LAB 10/30/24 Logged Protein/Creatinine 10:27 Hemodialysis Orders ORDERS 11/01/24 Transmitted 07:00 Dialysis Nursing OLIVIA 11/01/24 In Process Message 07:00 Heparin Sodium PHA 11/01/24 Logged (Porcine) 07:00 Heparin Sodium PHA 11/01/24 Logged (Porcine) 07:00 Sodium Chloride 0.9% PHA 11/01/24 Logged 07:00 Document Fluid Input OLIVIA 11/01/24 In Process And Outpu 07:00 Epoetin Ke-Epbx PHA 11/01/24 Logged (Retacrit) 21:00 Dietary Evaluation Review Comments: Recommend liberalize diet to a Renal Standard diet once pt has a routine dialysis treatments scheduled. Expected Outcomes/Goals: less uremic symptoms, improved appetite and improvedd lab values. CC Plasma Assessment Blood Product Administration S: [id number] DIETER GUZMAN MD Oct 31, 2024 10:25
[2024-10-31 11:06] LABS: Anti-Centromere B Antibody <0.2 AI (0.0-0.9); Anti-Jo-1 Antibody <0.2 AI (0.0-0.9); Anti-dsDNA Antibody <1 IU/mL (0-9); Antichromatin Antibody <0.2 AI (0.0-0.9); Antiscleroderma-70 Antibody <0.2 AI (0.0-0.9); RNP Antibody <0.2 AI (0.0-0.9); Sjogren's Anti-SS-A Antibody <0.2 AI (0.0-0.9); Sjogren's Anti-SS-B Antibody <0.2 AI (0.0-0.9); Smith Antibody <0.2 AI (0.0-0.9)
[2024-10-31] MEDS: LIDOCAINE 2%HCL (LOCAL ANESTH.) INJ 20ML MDV ONE (12:19)
[2024-10-31] MEDS: HEPARIN SODIUM (PORCINE) 5000 UNITS/ML 1ML VIAL ONE (12:19)
[2024-10-31] MEDS: fentaNYL CITRATE 100 MCG/2 ML VL ONE (12:24)
[2024-10-31] MEDS: MIDAZOLAM HCL 2MG/2ML 2ml VIAL (1mg/ml) ONE (12:24)
--- NOTE | 2024-10-31 13:31 | DVH ---
PROCEDURE: TUNNELED CENTRAL VENOUS CATHETER PLACEMENT USING FLUOROSCOPY AND ULTRASOUND HISTORY: HD CATH DOCUMENTATION: Informed consent was obtained and a procedural time out was performed. SEDATION: Moderate sedation was utilized during the procedure. The patient received benzodiazepines a nd opioids, the dosing of which was documented in the patient s permanent medical record. Pre-sedatio n history and evaluation revealed no contraindications to sedation. The patient s level of consciousn ess and physiologic status was monitored continuously by the physician and nursing staff throughout t he procedure. Total intra-service moderate sedation time was 30 minutes. FLUORO: 1 minutes, DAP: 1 mGy, TECHNIQUE: The skin over the RIGHT internal jugular vein and chest was sterilely prepped, draped and anesthetized with 1% lidocaine with epinephrine. The vein was accessed with a 21-gauge needle under u ltrasound guidance with an image archived in the PACS. A guidewire was then passed into the central v eins under fluoroscopy. The subcutaneous tunnel was anesthetized with 1% lidocaine and the catheter w as tunneled to the venous entry site, cut to the appropriate length, and inserted through a peel away sheath. A final radiograph was obtained, the catheter was flushed and secured in place, and sterile dressings were applied. Procedural physician complied with all CLIP criteria, including preprocedural hand hygiene and use of maximum sterile barriers including hat, gown, sterile gloves, mask, and head to toe drape. The neck and chest were prepped with chlorhexidine solution and draped in the usual sterile fashion. The prep solution was allowed to dry prior to puncture. FINDINGS: Ultrasound demonstrates a patent RIGHT internal jugular vein. The tip of the catheter was p laced near the cavoatrial junction. No complications are identified. IMPRESSION: SUCCESSFUL 14.5 x 23cm LUX[place]OURGISH DUAL-LUMEN POWER INJECTABLE TUNNELED CENTRAL VENOUS CATHETER PLACEMENT . THE CATHETER IS READY FOR IMMEDIATE USE.
[2024-10-31 13:37] LABS: Base Excess -3.5 mmol/L (-2.0-3.0)
[2024-10-31 15:02] LABS: Basophils # (auto) 0.1 10 ^3/uL (0-0.2); Basophils % (auto) 0.6 % (0.0-2.0); Eosinophils # (auto) 0.1 10 ^3/uL (0-0.8); Eosinophils % (auto) 0.8 % (0.0-7.0); Hematocrit 32.7 % (36.0-46.0); Hemoglobin 10.8 g/dL (12.2-16.2); Lymphocytes # (auto) 0.3 10 ^3/uL (0.4-5.4); Mean Corpuscular Hemoglobin 29.3 pg (28.0-32.0); Mean Corpuscular Volume 88.7 fL (80.0-100.0); Monocytes # (auto) 0.7 10 ^3/uL (0-1.3); Monocytes % (auto) 5.7 % (0.0-12.0); Neutrophils # (auto) 11.9 10 ^3/uL (1.6-8.6); Neutrophils % (auto) 90.9 % (37.0-80.0); Platelet Count (auto) 246 10^3/uL (140-450); Red Blood Cells 3.69 10^6/uL (4.0-5.20); Red Cell Distribution Width 15.2 % (11.8-14.3); White Blood Cell 13.1 10^3/uL (4.4-10.8)
--- NOTE | 2024-10-31 15:07 | DVHPN2 ---
Progress Note - Dictate Date Seen: Oct 31, 2024 Has the PT tested + for MRSA If YES, has PT been informed?: No Medical Necessity Reason Pt with a Central, PICC or Fol: Yes The following are medically ne: Pablo Catheter Subjective Patient was tentatively scheduled for an endoscopy However I cancel that as the patient had gone down to get a dialysis catheter placed in lab engineer Iron profile consistent with anemia of chronic disease likely due to acute on chronic renal failure Patient stated she had a recent colonoscopy a few years ago which was negative vital signs Vital Sign Date Time Temp Pulse Resp B/P (MAP) Pulse Ox O2 Delivery O2 Flow Rate FiO2 10/31/24 13:46 168/94 10/31/24 13:00 105 92 100 10/31/24 09:12 98.3 19 98.3 10/31/24 08:00 Bi-Pap+ 0 Total Intake and Output 10/30/24 10/30/24 10/31/24 14:59 22:59 06:59 Intake Total 50 ml 800 ml 50 ml Output Total 800 ml 750 ml Balance 50 ml 0 ml -700 ml medications Current Medications Medications Dose Ordered Sig/Ray Route Start Time Stop Time Status Last Admin Dose Admin Vancomycin HCl 0 ml @ 0 mls/hr UD IV 10/26/24 20:00 Clindamycin Phosphate 50 ml @ 50 mls/hr Q8HR IV 10/27/24 06:00 10/31/24 05:34 50 MLS/HR Sodium Chloride 10 ml Q8HR IV 10/27/24 06:00 10/31/24 05:35 10 ML Acetaminophen/ Hydrocodone Bitart 1 tab Q4HP PRN PO 10/27/24 01:00 10/30/24 23:31 1 TAB Ondansetron HCl 4 mg Q4HP PRN IV 10/27/24 01:00 Docusate Sodium 100 mg BIDPRN PRN PO 10/27/24 01:00 Acetaminophen 650 mg Q6HP PRN PO 10/27/24 01:00 10/29/24 15:41 650 MG Nitroglycerin 0.4 mg Q5MINP PRN SL 10/27/24 03:00 Morphine Sulfate 2 mg Q30M PRN IV 10/27/24 03:00 Diagnostic Test (Pha) 1 strip IQ4HR 10/27/24 12:00 10/31/24 08:01 1 STRIP Insulin Human Regular IQ4HR SC 10/27/24 12:00 10/29/24 20:08 2 UNITS Dextrose 50 ml UD PRN IV 10/27/24 08:30 Pantoprazole Sodium 40 mg BID IV 10/27/24 22:00 10/30/24 21:04 40 MG Insulin Glargine 10 units QAM SC 10/28/24 07:00 10/29/24 06:33 10 UNITS Hydralazine HCl 10 mg Q6HP PRN IV 10/28/24 10:45 Nifedipine 30 mg DAILY PO 10/29/24 10:00 10/30/24 09:23 30 MG Cefepime HCl 50 ml @ 12.5 mls/hr DAILY IV 10/29/24 10:00 10/30/24 09:22 12.5 MLS/HR Bumetanide 25 mg/ Miscellaneous 100 ml @ 4 mls/hr Q24H IV 10/29/24 18:00 10/31/24 13:46 4 MLS/HR Erythromycin 1 applic Q4HR OP 10/30/24 02:00 10/31/24 05:35 1 APPLIC Enoxaparin Sodium 40 mg DAILY@0100 SC 10/31/24 01:00 10/31/24 00:59 40 MG Ipratropium [place] 0.5 mg Q2HPRN PRN NEB 10/30/24 08:00 10/31/24 07:08 0.5 MG Albuterol 2.5 mg Q2HPRN PRN NEB 10/30/24 08:00 10/31/24 07:08 2.5 MG Sevelamer HCl 1,600 mg TIDWM PO 10/30/24 18:00 10/30/24 17:24 1,600 MG objective General Appearance: Alert, Oriented X3, Cooperative, No acute distress Head: Right eye hordeolum with swelling pus discharge and eyelid was matted, left eye is meredith Lungs: Clear to auscultation, Normal air movement Cardiovascular: Regular rate, Normal S1, Normal S2, No murmurs, no chest wall tenderness Abdominal: NO distention, no tenderness, bowel sounds present, no scars noted Extremities: No clubbing, No cyanosis, No edema, Normal pulses, No tenderness/swelling Skin: No rashes, No breakdown, No significant lesion Neuro: Normal gait, Normal speech, Strength at 5/5 X4 ext, Normal tone, Psych/Mental Status: Mental status NL, Mood NL laboratory and microbiology Laboratory Tests 10/31/24 14:45 Test 10/31/24 14:45 Range/Units Serum Glucose Pending Problems(with codes): (1) N&V (nausea and vomiting) (2) Metabolic acidosis (3) Severe anemia (4) Leukocytosis, unspecified (5) Hyperglycemia (6) Facial cellulitis (7) Acute renal failure Prognosis Plan Continue IV antibiotics Continue IV PPI I will reschedule endoscopy for 11/01/2024 NPO after midnight Dietary Evaluation Review Comments: Recommend liberalize diet to a Renal Standard diet once pt has a routine dialysis treatments scheduled. Expected Outcomes/Goals: less uremic symptoms, improved appetite and improvedd lab values. Plan discussed with: Other (Nurse) CC Plasma Assessment Blood Product Administration S: [id number] MILTON GRANDE MD Oct 31, 2024 15:07
[2024-10-31 15:21] LABS: Chloride 100 mmol/L (98-107); Potassium 4.8 mmol/L (3.5-5.1); Sodium 137 mmol/L (136-145)
[2024-10-31 15:22] LABS: Anion Gap 17 (5-15); Carbon Dioxide 20 mmol/L (20-31)
[2024-10-31 15:51] LABS: Blood Urea Nitrogen 71 mg/dL (9-23); Calcium 7.9 mg/dL (8.7-10.4); Glucose 106 mg/dL (74-106)
[2024-10-31] MEDS: hydrALAZINE HCL 20 MG/ML VL IV PRN (16:24)
[2024-10-31 20:06] LABS: Cytoplasmic (C-ANCA) <1:20 titer (Neg:<1:20); Perinuclear (P-ANCA) <1:20 titer (Neg:<1:20)
--- NOTE | 2024-10-31 20:19 | DVHPNRES ---
Progress Note Date Seen: Oct 31, 2024 Resident Creating Document: JEANETTE BEDOYA RESIDENT Has the PT tested + for MRSA If YES, has PT been informed?: No Medical Necessity Reason Pt with a Central, PICC or Fol: Yes The following are medically ne: Pablo Catheter Medical Necessity Reason need urgent dialysis Subjective Review of Systems Review of Systems This is a 54-year-old female who the past medical history of diabetes and kidney disease presented to the [facility] with the compliant of right eye swelling, redness, and persistent discharge for a proximally 4 days duration. Per patient, she woke up from bed 4 days ago and noted that her right eye was swollen and discharging fluid. Patient said she used [id number] topical medications without any improvement. This as the day progresses so did the swelling to the point that yesterday patient was unable to open her eyes as it was filled with pus. Patient was then advised to come to the ED for evaluation and management. In the ED, patient denied chest pain, no headache, no dizziness, no diaphoresis, no shortness of breath, no nausea, no vomiting, fever, no chills. Initial vital data showed BP:124/68, HR: 92, temp: 97.8 F, O2 saturation 98% on room air. Lab work showed WBC 19.9, hemoglobin 5.2, hematocrit 17.5, platelets 370, sodium 136, potassium 6.6, BUN 77, creatinine 9.53, GFR 5, glucose 230, AST 10, ALT 11. Maxillofacial CT revealing right preseptal cellulitis as well as cellulitis along the anterior lateral right cheek. Patient was started on IV antibiotic regimen vancomycin, received 2 units of PRBC. On my evaluation, patient was bed with her right eye closed with pus discharging. Patient expressed tenderness her right eye swelling red. PN: 10/29/2024: Patient is seen and examined at the bedside with her present. Ocular cellulitis is decreasing , but still has some drainage coming from the right eye. I showed patient how to use wet and warm wash cloth or gauze to gently wipe off the thick pus from her eye. I also showed her to use warm compress with gentle eyelid massage. Patient noted to have fever,but no cough. This afternoon, her nurse called to tell me that patient SpO2 is in the 80s. I order chest x-ray stat, abg stat and called RT. Temp is 99.9, pulse 119, SpO2: 90, hb: 9.6 PN: 10/30/2024: Patient is seen and examined at the bedside. Her ocular cellulitis is improving in size and also in redness. She has a thrombosis in the cephalic vein of the left arm a superficial vein with discoloration of her left up extremity. Also patient has been bend bound so will start her on prophylatic lovenox. Labs today, WBC: 11 ( trending down), hgb: 10, Iron: 17L, Na: 135, cr: 8.38. Patient seen by the physical therapy aide. She will start dialysis tomorrow. PN: 10/31/2024: Patient is seen and examined today. With regards to her right eye, it is getting better. She is able to see from the eye. Patient will be having the tunnel catheter today for urgent dialysis. Patient had tunneled catheter done today after the procedure she rolls on 100% FiO2 therefore patient had to be upgraded to do U for close observation. Per the laborer marine terminal nurse patient will be undergoing dialysis today but the time was not given. But currently the patient is currently under [place] status. Objective vital signs Vital Sign Date Time Temp Pulse Resp B/P (MAP) Pulse Ox O2 Delivery O2 Flow Rate FiO2 10/31/24 18:45 102 24 159/87 (111) 96 10/31/24 18:30 100.0 100.0 10/31/24 18:20 Facial BiPAP Mask 100 10/31/24 08:00 0 Total Intake and Output 10/30/24 10/30/24 10/31/24 15:00 23:00 07:00 Intake Total 50 ml 800 ml 50 ml Output Total 800 ml 750 ml Balance 50 ml 0 ml -700 ml medications Current Medications Medications Dose Ordered Sig/Ray Route Start Time Stop Time Status Last Admin Dose Admin Vancomycin HCl 0 ml @ 0 mls/hr UD IV 10/26/24 20:00 Clindamycin Phosphate 50 ml @ 50 mls/hr Q8HR IV 10/27/24 06:00 10/31/24 15:41 50 MLS/HR Sodium Chloride 10 ml Q8HR IV 10/27/24 06:00 10/31/24 15:42 10 ML Acetaminophen/ Hydrocodone Bitart 1 tab Q4HP PRN PO 10/27/24 01:00 10/30/24 23:31 1 TAB Ondansetron HCl 4 mg Q4HP PRN IV 10/27/24 01:00 Docusate Sodium 100 mg BIDPRN PRN PO 10/27/24 01:00 Acetaminophen 650 mg Q6HP PRN PO 10/27/24 01:00 10/29/24 15:41 650 MG Nitroglycerin 0.4 mg Q5MINP PRN SL 10/27/24 03:00 Morphine Sulfate 2 mg Q30M PRN IV 10/27/24 03:00 Diagnostic Test (Pha) 1 strip IQ4HR 10/27/24 12:00 10/31/24 16:43 1 STRIP Insulin Human Regular IQ4HR SC 10/27/24 12:00 10/29/24 20:08 2 UNITS Dextrose 50 ml UD PRN IV 10/27/24 08:30 Pantoprazole Sodium 40 mg BID IV 10/27/24 22:00 10/30/24 21:04 40 MG Insulin Glargine 10 units QAM SC 10/28/24 07:00 10/29/24 06:33 10 UNITS Hydralazine HCl 10 mg Q6HP PRN IV 10/28/24 10:45 10/31/24 16:24 10 MG Nifedipine 30 mg DAILY PO 10/29/24 10:00 10/31/24 15:40 30 MG Cefepime HCl 50 ml @ 12.5 mls/hr DAILY IV 10/29/24 10:00 10/31/24 15:43 12.5 MLS/HR Bumetanide 25 mg/ Miscellaneous 100 ml @ 4 mls/hr Q24H IV 10/29/24 18:00 10/31/24 13:46 4 MLS/HR Erythromycin 1 applic Q4HR OP 10/30/24 02:00 10/31/24 18:27 1 APPLIC Enoxaparin Sodium 40 mg DAILY@0100 SC 10/31/24 01:00 10/31/24 00:59 40 MG Ipratropium [place] 0.5 mg Q2HPRN PRN NEB 10/30/24 08:00 10/31/24 07:08 0.5 MG Albuterol 2.5 mg Q2HPRN PRN NEB 10/30/24 08:00 10/31/24 07:08 2.5 MG Sevelamer HCl 1,600 mg TIDWM PO 10/30/24 18:00 10/31/24 18:05 1,600 MG Examination General Appearance: Alert, Oriented X3, Cooperative, No acute distress, cold Head: Atraumatic Eye: RIGHT -->[place], Eyelid swelling, pus discharges, eyelids matted, --> less drainage today Left: normal Ear: no discharge noted Nose:no discharge noted Respiratory: congestion Cardiovascular: Regular rate, Normal S1, Normal S2, No murmurs, no chest wall tenderness Abdominal: NO distention, no tenderness, bowel sounds present, no scars noted Extremities: Left: swollen, peripheral thrombus, bluish discoloration Right: IV lines No clubbing, No cyanosis, No edema, Normal pulses, No tenderness/swelling Skin: No rashes, No breakdown, No significant lesion Neuro: Normal gait, Normal speech, Strength at 5/5 X4 ext, Normal tone, Sensation intact, Cranial nerves 3-12 NL, Reflexes 2+ Psych/Mental Status: Mental status NL, Mood NL laboratory and microbiology Laboratory Tests 10/31/24 14:45 Test 10/31/24 14:45 Range/Units Serum Glucose 106 74-106 mg/dL Microbiology Date/Time Source Procedure Growth Status 10/27/24 12:00 Urine - [place] Urine Culture - Final Complete 10/26/24 20:00 Blood Blood Culture - Preliminary NO GROWTH AFTER 72 HOURS OF INCUBATION. Resulted Problem List/Assessment/Plan Problem List/Assessment/Plan Assessment Severe Sepsis due to UTI/cellulitis UTI Metabolic acidosis Preseptal cellulitis Facial cellulitis Hyperglycemia, Hgb: 9.6 Severe enema status post 4 blood transfusion, hb: 9.3 Rule out GI bleed Melena rule out GI bleed Diabetes mellitus type II Hyperkalemia Mild hyponatremia Acute kidney injury likely septic ATN versus other etiology Pneumonia Pulmonary edema Had tunnel catheter today Plan Continue Vancomycin Continue Clindamycin Continue Cefepime erythromycin ointment Protonix 40mg bid Lantus 10 unit daily Moderate sliding scale N/S maintainence at 100ml/hr Check and replace electrolytes Hyperkalemia protocol Repeat labs in the AM GI following Nephrology following Cardiology: No intervention at this time Lovenox bumex by nephrology Nephrology recommending dialysis, tunnel catheter insertion order placed to IR Code status: Full Goal of care discussed for more than 45 minutes Case and plan reviewed with Dr. Clark Plan discussed with: Other (NURSE) My Orders My Orders Orders - JEANETTE BEDOYA RESIDENT Procedure Category Date Status Time Insertion Of Venous XY 10/31/24 Resulted Cath 13:01 Transfer Orders XFER 10/31/24 Transmitted 14:52 Dietary Evaluation Review Comments: Recommend liberalize diet to a Renal Standard diet once pt has a routine dialysis treatments scheduled. Expected Outcomes/Goals: less uremic symptoms, improved appetite and improvedd lab values. CC Plasma Assessment Blood Product Administration S: [id number] Date of Service: Oct 31, 2024 Billing Provider: LIBAN CLARK MD Common Visit Codes: [id number] INP/OBS CARE(HIGH) JEANETTE BEDOYA RESIDENT Oct 31, 2024 20:19 LIBAN CLARK MD Nov 01, 2024 19:21
[2024-10-31] MEDS: SODIUM CHL 0.9% 1000 ML BAG XX ONE (21:27)
[2024-10-31] MEDS: EPOETIN ALFA-EPBX 10,000 UNIT/1ML VIAL SC ONE (22:10)
[2024-11-01] VITALS (31 sets, daily range): BP systolic 105–154; BP diastolic 52–78; PULSE 76–106; RESP 15–27; TEMP 98.4–100.4; O2SAT 89–99
[2024-11-01 07:22] LABS: Basophils # (auto) 0.1 10 ^3/uL (0-0.2); Basophils % (auto) 0.6 % (0.0-2.0); Eosinophils # (auto) 0 10 ^3/uL (0-0.8); Eosinophils % (auto) 0.2 % (0.0-7.0); Hematocrit 31.3 % (36.0-46.0); Hemoglobin 10.4 g/dL (12.2-16.2); Lymphocytes # (auto) 0.5 10 ^3/uL (0.4-5.4); Lymphocytes % (auto) 5.5 % (10.0-50.0); Mean Corpuscular Hemoglobin 29.2 pg (28.0-32.0); Mean Corpuscular Hgb Conc. 33.3 g/dL (32.0-36.0); Mean Corpuscular Volume 87.6 fL (80.0-100.0); Monocytes # (auto) 0.7 10 ^3/uL (0-1.3); Monocytes % (auto) 7.4 % (0.0-12.0); Neutrophils # (auto) 8.4 10 ^3/uL (1.6-8.6); Neutrophils % (auto) 86.3 % (37.0-80.0); Platelet Count (auto) 220 10^3/uL (140-450); Red Blood Cells 3.58 10^6/uL (4.0-5.20); Red Cell Distribution Width 14.9 % (11.8-14.3); White Blood Cell 9.7 10^3/uL (4.4-10.8)
[2024-11-01 07:30] LABS: Alanine Aminotransferase 16 U/L (7-40); Alkaline Phosphatase 80 U/L (46-116); Anion Gap 12 (5-15); Aspartate Aminotransferase 29 U/L (13-40); BUN/Creatinine Ratio 6.7 (10.0-20.0); Carbon Dioxide 24 mmol/L (20-31); Chloride 103 mmol/L (98-107); Potassium 3.8 mmol/L (3.5-5.1); Sodium 139 mmol/L (136-145)
[2024-11-01 07:43] LABS: Albumin 3.1 g/dL (3.2-4.8); Bilirubin, Total 0.2 mg/dL (0.2-1.0); Blood Urea Nitrogen 42 mg/dL (9-23); Glucose 122 mg/dL (74-106)
[2024-11-01 08:03] LABS: Base Excess 2.2 mmol/L (-2.0-3.0)
--- NOTE | 2024-11-01 10:22 | DVH ---
XY CHEST XRAY 1 VIEW, HISTORY: pulmonary edema COMPARISON: XY CHEST XRAY 1 VIEW on DOS: 10/29/24 XY CHEST XRAY 1 VIEW on DOS: 10/29/24 TECHNICAL DATA: 1 view of the chest was obtained. FINDINGS: Lines and tubes: None Cardiomediastinal silhouette: normal Pulmonary vasculature: normal Lung expansion: normal Lung airspace: Worsened airspace disease. Lung interstitium: normal Pleura: normal Pneumothorax: no Bones: Unremarkable Other: no IMPRESSION: Worsened airspace disease can be seen with pulmonary edema.
--- NOTE | 2024-11-01 10:33 | DVHPN2 ---
Progress Note - Dictate Date Seen: Nov 01, 2024 Has the PT tested + for MRSA If YES, has PT been informed?: No Medical Necessity Reason Pt with a Central, PICC or Fol: Yes The following are medically ne: Pablo Catheter Subjective Patient developed respiratory distress yesterday after catheter placement and dialysis, patient has been upgraded to [place] status She was on a BiPAP yesterday but today she is on high-flow oxygen No active GI bleeding is reported in her H&H is stable at 10 Patient is scheduled for repeat dialysis today Her orbital cellulitis is improving vital signs Vital Sign Date Time Temp Pulse Resp B/P (MAP) Pulse Ox O2 Delivery O2 Flow Rate FiO2 11/01/24 08:15 86 22 96 30.0 70 11/01/24 07:00 128/73 (91) 11/01/24 06:22 Facial BiPAP Mask 11/01/24 04:00 99.0 99.0 Total Intake and Output 10/31/24 10/31/24 11/01/24 15:00 23:00 07:00 Intake Total 448 ml 607.0 ml 352 ml Output Total 900 ml 400 ml 650 ml Balance -452 ml 207.0 ml -298 ml medications Current Medications Medications Dose Ordered Sig/Ray Route Start Time Stop Time Status Last Admin Dose Admin Vancomycin HCl 0 ml @ 0 mls/hr UD IV 10/26/24 20:00 Clindamycin Phosphate 50 ml @ 50 mls/hr Q8HR IV 10/27/24 06:00 11/01/24 06:00 50 MLS/HR Sodium Chloride 10 ml Q8HR IV 10/27/24 06:00 11/01/24 06:01 10 ML Acetaminophen/ Hydrocodone Bitart 1 tab Q4HP PRN PO 10/27/24 01:00 10/30/24 23:31 1 TAB Ondansetron HCl 4 mg Q4HP PRN IV 10/27/24 01:00 Docusate Sodium 100 mg BIDPRN PRN PO 10/27/24 01:00 Acetaminophen 650 mg Q6HP PRN PO 10/27/24 01:00 10/29/24 15:41 650 MG Nitroglycerin 0.4 mg Q5MINP PRN SL 10/27/24 03:00 Morphine Sulfate 2 mg Q30M PRN IV 10/27/24 03:00 Diagnostic Test (Pha) 1 strip IQ4HR 10/27/24 12:00 11/01/24 09:52 1 STRIP Insulin Human Regular IQ4HR SC 10/27/24 12:00 10/29/24 20:08 2 UNITS Dextrose 50 ml UD PRN IV 10/27/24 08:30 Pantoprazole Sodium 40 mg BID IV 10/27/24 22:00 11/01/24 10:26 40 MG Insulin Glargine 10 units QAM SC 10/28/24 07:00 10/29/24 06:33 10 UNITS Hydralazine HCl 10 mg Q6HP PRN IV 10/28/24 10:45 10/31/24 16:24 10 MG Nifedipine 30 mg DAILY PO 10/29/24 10:00 10/31/24 15:40 30 MG Cefepime HCl 50 ml @ 12.5 mls/hr DAILY IV 10/29/24 10:00 11/01/24 10:25 12.5 MLS/HR Bumetanide 25 mg/ Miscellaneous 100 ml @ 4 mls/hr Q24H IV 10/29/24 18:00 10/31/24 13:46 4 MLS/HR Erythromycin 1 applic Q4HR OP 10/30/24 02:00 11/01/24 10:26 1 APPLIC Enoxaparin Sodium 40 mg DAILY@0100 SC 10/31/24 01:00 11/01/24 01:03 40 MG Ipratropium [place] 0.5 mg Q2HPRN PRN NEB 10/30/24 08:00 10/31/24 07:08 0.5 MG Albuterol 2.5 mg Q2HPRN PRN NEB 10/30/24 08:00 10/31/24 07:08 2.5 MG Sevelamer HCl 1,600 mg TIDWM PO 10/30/24 18:00 10/31/24 18:05 1,600 MG objective General Appearance: Alert, Oriented X3, Cooperative, high-flow oxygen Head: Right eye hordeolum with swelling pus discharge and eyelid was matted, left eye is normal Lungs: Clear to auscultation, Normal air movement Cardiovascular: Regular rate, Normal S1, Normal S2, No murmurs, no chest wall tenderness Abdominal: NO distention, no tenderness, bowel sounds present, no scars noted Extremities: No clubbing, No cyanosis, No edema, Normal pulses, No tenderness/swelling Skin: No rashes, No breakdown, No significant lesion Neuro: Normal gait, Normal speech, Strength at 5/5 X4 ext, Normal tone, Psych/Mental Status: Mental status NL, Mood NL laboratory and microbiology Laboratory Tests 11/01/24 05:11 Test 11/01/24 05:11 Range/Units Serum Glucose 122 H 74-106 mg/dL Problems(with codes): (1) N&V (nausea and vomiting) (2) Severe anemia (3) Leukocytosis, unspecified (4) Hyperglycemia (5) Facial cellulitis (6) Acute renal failure (7) Hyperkalemia Prognosis Plan I will cancel her endoscopic test today as the patient is not showing signs of any active bleeding and she still has some mild respiratory compromise I will continue to monitor her When the patient is more stable I will re-evaluate her for EGD later this week Dietary Evaluation Review Comments: Recommend liberalize diet to a Renal Standard diet once pt has a routine dialysis treatments scheduled. Expected Outcomes/Goals: less uremic symptoms, improved appetite and improvedd lab values. Plan discussed with: Patient, Other (Cardiac cath nurse) CC Plasma Assessment Blood Product Administration S: [id number] MILTON GRANDE MD Nov 01, 2024 10:33
[2024-11-01 10:57] LABS: Base Excess 0.8 mmol/L (-2.0-3.0)
[2024-11-01] MEDS: SODIUM CHL 0.9% 1000 ML BAG XX ONE (11:20)
[2024-11-01] MEDS: ALBUMIN 25% 100 ML IV PRN (11:40)
--- NOTE | 2024-11-01 11:50 | DVHPN2 ---
Progress Note Date Seen: Nov 01, 2024 Has the PT tested + for MRSA If YES, has PT been informed?: No Medical Necessity Reason Pt with a Central, PICC or Fol: Yes The following are medically ne: Pablo Catheter Subjective Patient reports: No new complaints Review of Systems: RESPIRATORY:Abnormal Other Systems: Patient seen and examined by myself today in follow-up patient remained on BiPAP Patient examined hemodialysis, blood pressure stable Objective vital signs Vital Sign Date Time Temp Pulse Resp B/P (MAP) Pulse Ox O2 Delivery O2 Flow Rate FiO2 11/01/24 10:00 20 92 Hi-Flow Heated NC+ 30 70 70 11/01/24 10:00 89 11/01/24 07:00 128/73 (91) 11/01/24 04:00 99.0 99.0 Total Intake and Output 10/31/24 10/31/24 11/01/24 15:00 23:00 07:00 Intake Total 448 ml 607.0 ml 352 ml Output Total 900 ml 400 ml 650 ml Balance -452 ml 207.0 ml -298 ml medications Current Medications Medications Dose Ordered Sig/Ray Route Start Time Stop Time Status Last Admin Dose Admin Vancomycin HCl 0 ml @ 0 mls/hr UD IV 10/26/24 20:00 Clindamycin Phosphate 50 ml @ 50 mls/hr Q8HR IV 10/27/24 06:00 11/01/24 06:00 50 MLS/HR Sodium Chloride 10 ml Q8HR IV 10/27/24 06:00 11/01/24 06:01 10 ML Acetaminophen/ Hydrocodone Bitart 1 tab Q4HP PRN PO 10/27/24 01:00 10/30/24 23:31 1 TAB Ondansetron HCl 4 mg Q4HP PRN IV 10/27/24 01:00 Docusate Sodium 100 mg BIDPRN PRN PO 10/27/24 01:00 Acetaminophen 650 mg Q6HP PRN PO 10/27/24 01:00 10/29/24 15:41 650 MG Nitroglycerin 0.4 mg Q5MINP PRN SL 10/27/24 03:00 Morphine Sulfate 2 mg Q30M PRN IV 10/27/24 03:00 Diagnostic Test (Pha) 1 strip IQ4HR 10/27/24 12:00 11/01/24 09:52 1 STRIP Insulin Human Regular IQ4HR SC 10/27/24 12:00 10/29/24 20:08 2 UNITS Dextrose 50 ml UD PRN IV 10/27/24 08:30 Pantoprazole Sodium 40 mg BID IV 10/27/24 22:00 11/01/24 10:26 40 MG Insulin Glargine 10 units QAM SC 10/28/24 07:00 10/29/24 06:33 10 UNITS Hydralazine HCl 10 mg Q6HP PRN IV 10/28/24 10:45 10/31/24 16:24 10 MG Nifedipine 30 mg DAILY PO 10/29/24 10:00 10/31/24 15:40 30 MG Cefepime HCl 50 ml @ 12.5 mls/hr DAILY IV 10/29/24 10:00 11/01/24 10:25 12.5 MLS/HR Bumetanide 25 mg/ Miscellaneous 100 ml @ 4 mls/hr Q24H IV 10/29/24 18:00 10/31/24 13:46 4 MLS/HR Erythromycin 1 applic Q4HR OP 10/30/24 02:00 11/01/24 10:26 1 APPLIC Enoxaparin Sodium 40 mg DAILY@0100 SC 10/31/24 01:00 11/01/24 01:03 40 MG Ipratropium [place] 0.5 mg Q2HPRN PRN NEB 10/30/24 08:00 10/31/24 07:08 0.5 MG Albuterol 2.5 mg Q2HPRN PRN NEB 10/30/24 08:00 10/31/24 07:08 2.5 MG Sevelamer HCl 1,600 mg TIDWM PO 10/30/24 18:00 10/31/24 18:05 1,600 MG Albumin Human 100 ml @ 100 mls/hr PRN PRN IV 11/01/24 11:30 Examination: LUNGS:Normal, CVS:Normal, MSK:Normal laboratory and microbiology Laboratory Tests 11/01/24 05:11 Test 11/01/24 05:11 Range/Units Serum Glucose 122 H 74-106 mg/dL Microbiology Date/Time Source Procedure Growth Status 10/27/24 12:00 Urine - [place] Urine Culture - Final Complete 10/26/24 20:00 Blood Blood Culture - Final NO GROWTH AFTER 5 DAYS OF INCUBATION. Complete Problem List/Assessment/Plan Problem List/Assessment/Plan Chronic kidney disease stage 5 now end-stage renal disease requiring hemodialysis 3 times weekly Chronic kidney disease stage 4 followed in my clinic Hyperkalemia Metabolic acidosis Right ophthalmitis/periorbital cellulitis Anemia with black stool Hemoglobin is stable Recommendations Continue with UF to 3 L as tolerated, use no heparin Epogen 29534 IV post hemodialysis Hemodialysis again tomorrow for fluid removal Social service for outpatient hemodialysis chair time IV antibiotics Eyedrops GI consult Renal diet We will continue to follow Plan discussed with: Patient, Spouse My Orders My Orders Orders - DIETER GUZMAN MD Procedure Category Date Status Time Albumin 25% (Albutein) PHA 11/01/24 In Process 11:30 Dietary Evaluation Review Comments: Recommend liberalize diet to a Renal Standard diet once pt has a routine dialysis treatments scheduled. Expected Outcomes/Goals: less uremic symptoms, improved appetite and improvedd lab values. CC Plasma Assessment Blood Product Administration S: [id number] DIETER GUZMAN MD Nov 01, 2024 11:50
--- NOTE | 2024-11-01 18:34 | MEDREC ---
[facility] Intervention Section I [facility] Intervention: Duplication of therapy (FOR EMPIRIC TREATMENT OF ORBITAL CELLULITIS CONSIDER VANCOMYCIN + ZOSYN OR UNASYN), Review courses of therapy BREE SANTIAGO PHARMACIST Nov 01, 2024 18:34
--- NOTE | 2024-11-01 19:24 | DVHPNRES ---
Progress Note Date Seen: Nov 01, 2024 Resident Creating Document: EJANETTE BEDOYA RESIDENT Has the PT tested + for MRSA If YES, has PT been informed?: No Medical Necessity Reason Pt with a Central, PICC or Fol: Yes The following are medically ne: Pablo Catheter Medical Necessity Reason Sepsis esrd Subjective Review of Systems Review of Systems This is a 54-year-old female who the past medical history of diabetes and kidney disease presented to the [facility] with the compliant of right eye swelling, redness, and persistent discharge for a proximally 4 days duration. Per patient, she woke up from bed 4 days ago and noted that her right eye was swollen and discharging fluid. Patient said she used uosr-tts-wupmxmx topical medications without any improvement. This as the day progresses so did the swelling to the point that yesterday patient was unable to open her eyes as it was filled with pus. Patient was then advised to come to the ED for evaluation and management. In the ED, patient denied chest pain, no headache, no dizziness, no diaphoresis, no shortness of breath, no nausea, no vomiting, fever, no chills. Initial vital data showed BP:124/68, HR: 92, temp: 97.8 F, O2 saturation 98% on room air. Lab work showed WBC 19.9, hemoglobin 5.2, hematocrit 17.5, platelets 370, sodium 136, potassium 6.6, BUN 77, creatinine 9.53, GFR 5, glucose 230, AST 10, ALT 11. Maxillofacial CT revealing right preseptal cellulitis as well as cellulitis along the anterior lateral right cheek. Patient was started on IV antibiotic regimen vancomycin, received 2 units of PRBC. On my evaluation, patient was bed with her right eye closed with pus discharging. Patient expressed tenderness her right eye swelling red. PN: 10/29/2024: Patient is seen and examined at the bedside with her present. Ocular cellulitis is decreasing , but still has some drainage coming from the right eye. I showed patient how to use wet and warm wash cloth or gauze to gently wipe off the thick pus from her eye. I also showed her to use warm compress with gentle eyelid massage. Patient noted to have fever,but no cough. This afternoon, her nurse called to tell me that patient SpO2 is in the 80s. I order chest x-ray stat, abg stat and called RT. Temp is 99.9, pulse 119, SpO2: 90, hb: 9.6 PN: 10/30/2024: Patient is seen and examined at the bedside. Her ocular cellulitis is improving in size and also in redness. She has a thrombosis in the cephalic vein of the left arm a superficial vein with discoloration of her left up extremity. Also patient has been bend bound so will start her on prophylatic lovenox. Labs today, WBC: 11 ( trending down), hgb: 10, Iron: 17L, Na: 135, cr: 8.38. Patient seen by the food and beverage assistant manager. She will start dialysis tomorrow. PN: 10/31/2024: Patient is seen and examined today. With regards to her right eye, it is getting better. She is able to see from the eye. Patient will be having the tunnel catheter today for urgent dialysis. Patient had tunneled catheter done today after the procedure she rolls on 100% FiO2 therefore patient had to be upgraded to do U for close observation. Per the laboratory coordinator nurse patient will be undergoing dialysis today but the time was not given. But currently the patient is currently under SHARITA status. PN: 11/01/2024: Patient seen and examined at the Cath -ICU. She remains on Bipap and doing well. She recieved HD yesterd with 2.5L removed. She had another HD today with 2.7 L removed. Lab work shows wbc: 9.7. Temp: 99.4. Antibiotics is Vancomycin and cefepime. Objective vital signs Vital Sign Date Time Temp Pulse Resp B/P (MAP) Pulse Ox O2 Delivery O2 Flow Rate FiO2 11/01/24 18:00 83 11/01/24 18:00 19 97 Hi-Flow Heated NC+ 20 60 60 11/01/24 17:35 99.4 11/01/24 17:00 148/68 (94) Total Intake and Output 10/31/24 10/31/24 11/01/24 15:00 23:00 07:00 Intake Total 448 ml 607.0 ml 352 ml Output Total 900 ml 400 ml 650 ml Balance -452 ml 207.0 ml -298 ml medications Current Medications Medications Dose Ordered Sig/Ray Route Start Time Stop Time Status Last Admin Dose Admin Vancomycin HCl 0 ml @ 0 mls/hr UD IV 10/26/24 20:00 Clindamycin Phosphate 50 ml @ 50 mls/hr Q8HR IV 10/27/24 06:00 11/01/24 16:20 50 MLS/HR Sodium Chloride 10 ml Q8HR IV 10/27/24 06:00 11/01/24 14:08 10 ML Acetaminophen/ Hydrocodone Bitart 1 tab Q4HP PRN PO 10/27/24 01:00 10/30/24 23:31 1 TAB Ondansetron HCl 4 mg Q4HP PRN IV 10/27/24 01:00 Docusate Sodium 100 mg BIDPRN PRN PO 10/27/24 01:00 Acetaminophen 650 mg Q6HP PRN PO 10/27/24 01:00 11/01/24 16:35 650 MG Nitroglycerin 0.4 mg Q5MINP PRN SL 10/27/24 03:00 Morphine Sulfate 2 mg Q30M PRN IV 10/27/24 03:00 Diagnostic Test (Pha) 1 strip IQ4HR 10/27/24 12:00 11/01/24 16:28 1 STRIP Insulin Human Regular IQ4HR SC 10/27/24 12:00 11/01/24 16:25 6 UNITS Dextrose 50 ml UD PRN IV 10/27/24 08:30 Pantoprazole Sodium 40 mg BID IV 10/27/24 22:00 11/01/24 10:26 40 MG Insulin Glargine 10 units QAM SC 10/28/24 07:00 10/29/24 06:33 10 UNITS Hydralazine HCl 10 mg Q6HP PRN IV 10/28/24 10:45 10/31/24 16:24 10 MG Nifedipine 30 mg DAILY PO 10/29/24 10:00 10/31/24 15:40 30 MG Cefepime HCl 50 ml @ 12.5 mls/hr DAILY IV 10/29/24 10:00 11/01/24 10:25 12.5 MLS/HR Erythromycin 1 applic Q4HR OP 10/30/24 02:00 11/01/24 18:42 1 APPLIC Enoxaparin Sodium 40 mg DAILY@0100 SC 10/31/24 01:00 11/01/24 01:03 40 MG Ipratropium [place] 0.5 mg Q2HPRN PRN NEB 10/30/24 08:00 10/31/24 07:08 0.5 MG Albuterol 2.5 mg Q2HPRN PRN NEB 10/30/24 08:00 10/31/24 07:08 2.5 MG Sevelamer HCl 1,600 mg TIDWM PO 10/30/24 18:00 11/01/24 18:42 1,600 MG Albumin Human 100 ml @ 100 mls/hr PRN PRN IV 11/01/24 11:30 11/01/24 11:40 100 MLS/HR Examination General Appearance: Alert, Oriented X3, Cooperative, No acute distress, on BIPAP in CATH-ICU Head: Atraumatic Eye: RIGHT -->Hordelum, Less swelling, pus discharges, --> less drainage today Left: normal Ear: no discharge noted Nose:no discharge noted Respiratory: congestion Cardiovascular: Regular rate, Normal S1, Normal S2, No murmurs, no chest wall tenderness Abdominal: NO distention, no tenderness, bowel sounds present, no scars noted Extremities: Left: swollen, peripheral thrombus, bluish discoloration Right: IV lines No clubbing, No cyanosis, No edema, Normal pulses, No tenderness/swelling Skin: No rashes, No breakdown, No significant lesion Neuro: Normal gait, Normal speech, Strength at 5/5 X4 ext, Normal tone, Sensation intact, Cranial nerves 3-12 NL, Reflexes 2+ Psych/Mental Status: Mental status NL, Mood NL laboratory and microbiology Laboratory Tests 11/01/24 05:11 Test 11/01/24 05:11 Range/Units Serum Glucose 122 H 74-106 mg/dL Microbiology Date/Time Source Procedure Growth Status 10/27/24 12:00 Urine - [place] Urine Culture - Final Complete 10/26/24 20:00 Blood Blood Culture - Final NO GROWTH AFTER 5 DAYS OF INCUBATION. Complete Problem List/Assessment/Plan Problem List/Assessment/Plan Assessment Severe Sepsis due to UTI/cellulitis UTI Metabolic acidosis Preseptal cellulitis Facial cellulitis Hyperglycemia, Hgb: 9.6 Severe enema status post 4 blood transfusion, hb: 9.3 Rule out GI bleed Melena rule out GI bleed Diabetes mellitus type II Hyperkalemia--> RESOLVED Mild hyponatremia Acute kidney injury likely septic ATN versus other etiology Pneumonia Pulmonary edema on HD X 2 Plan Continue Vancomycin Continue Cefepime erythromycin ointment Protonix 40mg bid Lantus 10 unit daily Moderate sliding scale N/S maintainence at 100ml/hr Check and replace electrolytes Repeat labs in the AM GI following Nephrology following Cardiology: No intervention at this time Heparin 5000 unit q12hr Nephrology recommending dialysis, tunnel catheter insertion order placed to IR DVT prophylasix : Heparin Diet: renal Code status: Full Goal of care discussed for more than 45 minutes Case and plan reviewed with Dr. Clark Plan discussed with: Patient Dietary Evaluation Review Comments: Recommend liberalize diet to a Renal Standard diet once pt has a routine dialysis treatments scheduled. Expected Outcomes/Goals: less uremic symptoms, improved appetite and improvedd lab values. CC Plasma Assessment Blood Product Administration S: [id number] JEANETTE BEDOYA RESIDENT Nov 01, 2024 19:24
[2024-11-01] MEDS: VANCOMYCIN 500mg/100mL 100 ML IV ONE (20:57)
[2024-11-01] MEDS: EPOETIN ALFA-EPBX 10,000 UNIT/1ML VIAL SC ONE (20:58)
[2024-11-02] VITALS (47 sets, daily range): BP systolic 114–166; BP diastolic 63–91; PULSE 78–94; RESP 14–27; TEMP 98.5–100; O2SAT 89–100
[2024-11-02 04:06] LABS: Chloride 102 mmol/L (98-107); Potassium 3.7 mmol/L (3.5-5.1); Sodium 137 mmol/L (136-145)
[2024-11-02 04:07] LABS: Anion Gap 7 (5-15); Carbon Dioxide 28 mmol/L (20-31)
[2024-11-02 04:13] LABS: BUN/Creatinine Ratio 5.4 (10.0-20.0)
[2024-11-02 04:15] LABS: Blood Urea Nitrogen 25 mg/dL (9-23); Calcium 8.4 mg/dL (8.7-10.4); Glucose 116 mg/dL (74-106)
[2024-11-02] MEDS: SODIUM CHL 0.9% 1000 ML BAG XX ONE (09:30)
[2024-11-02] MEDS: HEPARIN SODIUM (PORCINE) 5000 UNITS/ML 1ML VIAL SC SCH (09:49)
--- NOTE | 2024-11-02 09:52 | DVHPN2 ---
Progress Note Date Seen: Nov 02, 2024 Has the PT tested + for MRSA If YES, has PT been informed?: No Medical Necessity Reason Pt with a Central, PICC or Fol: Yes The following are medically ne: Pablo Catheter Subjective Other Systems: Patient seen and examined by myself today in follow-up Patient examined hemodialysis, blood pressure stable Objective vital signs Vital Sign Date Time Temp Pulse Resp B/P (MAP) Pulse Ox O2 Delivery O2 Flow Rate FiO2 11/02/24 08:00 86 19 140/76 (97) 95 11/02/24 06:25 25.0 40 11/02/24 06:00 Hi-Flow Heated NC+ 11/02/24 04:00 98.5 98.5 Total Intake and Output 11/01/24 11/01/24 11/02/24 15:00 23:00 07:00 Intake Total 390 ml 600 ml 240 ml Output Total 480 ml 350 ml Balance 390 ml 120 ml -110 ml medications Current Medications Medications Dose Ordered Sig/Ray Route Start Time Stop Time Status Last Admin Dose Admin Vancomycin HCl 0 ml @ 0 mls/hr UD IV 10/26/24 20:00 Sodium Chloride 10 ml Q8HR IV 10/27/24 06:00 11/02/24 06:04 10 ML Acetaminophen/ Hydrocodone Bitart 1 tab Q4HP PRN PO 10/27/24 01:00 10/30/24 23:31 1 TAB Ondansetron HCl 4 mg Q4HP PRN IV 10/27/24 01:00 Docusate Sodium 100 mg BIDPRN PRN PO 10/27/24 01:00 Acetaminophen 650 mg Q6HP PRN PO 10/27/24 01:00 11/01/24 16:35 650 MG Nitroglycerin 0.4 mg Q5MINP PRN SL 10/27/24 03:00 Morphine Sulfate 2 mg Q30M PRN IV 10/27/24 03:00 Diagnostic Test (Pha) 1 strip IQ4HR 10/27/24 12:00 11/02/24 08:24 1 STRIP Insulin Human Regular IQ4HR SC 10/27/24 12:00 11/01/24 16:25 6 UNITS Dextrose 50 ml UD PRN IV 10/27/24 08:30 Pantoprazole Sodium 40 mg BID IV 10/27/24 22:00 11/01/24 21:31 40 MG Insulin Glargine 10 units QAM SC 10/28/24 07:00 11/02/24 06:22 10 UNITS Hydralazine HCl 10 mg Q6HP PRN IV 10/28/24 10:45 11/02/24 00:07 10 MG Nifedipine 30 mg DAILY PO 10/29/24 10:00 10/31/24 15:40 30 MG Cefepime HCl 50 ml @ 12.5 mls/hr DAILY IV 10/29/24 10:00 11/01/24 10:25 12.5 MLS/HR Erythromycin 1 applic Q4HR OP 10/30/24 02:00 11/02/24 06:04 1 APPLIC Ipratropium [place] 0.5 mg Q2HPRN PRN NEB 10/30/24 08:00 10/31/24 07:08 0.5 MG Albuterol 2.5 mg Q2HPRN PRN NEB 10/30/24 08:00 10/31/24 07:08 2.5 MG Sevelamer HCl 1,600 mg TIDWM PO 10/30/24 18:00 11/02/24 08:45 1,600 MG Albumin Human 100 ml @ 100 mls/hr PRN PRN IV 11/01/24 11:30 11/01/24 11:40 100 MLS/HR Heparin Sodium (Porcine) 5,000 units Q12HR SC 11/02/24 10:00 Examination: LUNGS:Normal, CVS:Normal, MSK:Normal laboratory and microbiology Laboratory Tests 11/02/24 03:38 11/01/24 05:11 Test 11/02/24 03:38 Range/Units Serum Glucose 116 H 74-106 mg/dL Microbiology Date/Time Source Procedure Growth Status 10/27/24 12:00 Urine - [place] Urine Culture - Final Complete 10/26/24 20:00 Blood Blood Culture - Final NO GROWTH AFTER 5 DAYS OF INCUBATION. Complete Problem List/Assessment/Plan Problem List/Assessment/Plan Chronic kidney disease stage 5 now end-stage renal disease requiring hemodialysis 3 times weekly Chronic kidney disease stage 4 followed in my clinic Hyperkalemia Metabolic acidosis Right ophthalmitis/periorbital cellulitis Anemia with black stool Hemoglobin is stable Hyperphosphatemia Recommendations Continue with UF to 2-3 L as tolerated, use no heparin Epogen 84076 IV post hemodialysis Social service for outpatient hemodialysis chair time IV antibiotics Renvela 1600 mg p.o. t.i.d. with meals Eyedrops GI consult Renal diet We will continue to follow Plan discussed with: Patient My Orders My Orders Orders - DIETER GUZMAN MD Procedure Category Date Status Time Albumin 25% (Albutein) PHA 11/01/24 In Process 11:30 Hemodialysis Orders ORDERS 11/02/24 Transmitted 09:22 Dialysis Nursing OLIVIA 11/02/24 In Process Message 09:22 Document Fluid Input OLIVIA 11/02/24 In Process And Outpu 09:22 Dietary Evaluation Review Comments: Recommend liberalize diet to a Renal Standard diet once pt has a routine dialysis treatments scheduled. Expected Outcomes/Goals: less uremic symptoms, improved appetite and improvedd lab values. CC Plasma Assessment Blood Product Administration S: [id number] DIETER GUZMAN MD Nov 02, 2024 09:52
[2024-11-02] MEDS ORDERED: HEPARIN SODIUM (PORCINE) 5000 UNITS/ML 1ML VIAL IV ONE (10:00)
--- NOTE | 2024-11-02 16:08 | DVHPNRES ---
Progress Note Date Seen: Nov 02, 2024 Resident Creating Document: JEANETTE BEDOYA RESIDENT Has the PT tested + for MRSA If YES, has PT been informed?: No Medical Necessity Reason Pt with a Central, PICC or Fol: Yes The following are medically ne: Pablo Catheter Medical Necessity Reason CKD STAGE 4. Daily dialysis Subjective Review of Systems This is a 54-year-old female who the past medical history of diabetes and kidney disease presented to the [facility] with the compliant of right eye swelling, redness, and persistent discharge for a proximally 4 days duration. Per patient, she woke up from bed 4 days ago and noted that her right eye was swollen and discharging fluid. Patient said she used euhy-ljn-namrbgq topical medications without any improvement. This as the day progresses so did the swelling to the point that yesterday patient was unable to open her eyes as it was filled with pus. Patient was then advised to come to the ED for evaluation and management. In the ED, patient denied chest pain, no headache, no dizziness, no diaphoresis, no shortness of breath, no nausea, no vomiting, fever, no chills. Initial vital data showed BP:124/68, HR: 92, temp: 97.8 F, O2 saturation 98% on room air. Lab work showed WBC 19.9, hemoglobin 5.2, hematocrit 17.5, platelets 370, sodium 136, potassium 6.6, BUN 77, creatinine 9.53, GFR 5, glucose 230, AST 10, ALT 11. Maxillofacial CT revealing right preseptal cellulitis as well as cellulitis along the anterior lateral right cheek. Patient was started on IV antibiotic regimen vancomycin, received 2 units of PRBC. On my evaluation, patient was bed with her right eye closed with pus discharging. Patient expressed tenderness her right eye swelling red. PN: 10/29/2024: Patient is seen and examined at the bedside with her present. Ocular cellulitis is decreasing , but still has some drainage coming from the right eye. I showed patient how to use wet and warm wash cloth or gauze to gently wipe off the thick pus from her eye. I also showed her to use warm compress with gentle eyelid massage. Patient noted to have fever,but no cough. This afternoon, her nurse called to tell me that patient SpO2 is in the 80s. I order chest x-ray stat, abg stat and called RT. Temp is 99.9, pulse 119, SpO2: 90, hb: 9.6 PN: 10/30/2024: Patient is seen and examined at the bedside. Her ocular cellulitis is improving in size and also in redness. She has a thrombosis in the cephalic vein of the left arm a superficial vein with discoloration of her left up extremity. Also patient has been bend bound so will start her on prophylatic lovenox. Labs today, WBC: 11 ( trending down), hgb: 10, Iron: 17L, Na: 135, cr: 8.38. Patient seen by the manager of corporate communications. She will start dialysis tomorrow. PN: 10/31/2024: Patient is seen and examined today. With regards to her right eye, it is getting better. She is able to see from the eye. Patient will be having the tunnel catheter today for urgent dialysis. Patient had tunneled catheter done today after the procedure she rolls on 100% FiO2 therefore patient had to be upgraded to do U for close observation. Per the cath lab radiological technologist nurse patient will be undergoing dialysis today but the time was not given. But currently the patient is currently under SHARITA status. PN: 11/01/2024: Patient seen and examined at the Cath -ICU. She remains on Bipap and doing well. She recieved HD yesterd with 2.5L removed. She had another HD today with 2.7 L removed. Lab work shows wbc: 9.7. Temp: 99.4. Antibiotics is Vancomycin and cefepime. PN: 11/02/2024. Patient seen and examined to day. she was getting her dialysis at the time of my visit. She has no complaints. Labs today cr: 4.66 and gfr: 11. Vitals: 101.4 and BP: 168/88. Patient currently on Vancomycin and cefepime. Will stop these two antibiotics and start only meropenem. I spoke with her today and gave him up dated. He wanted to know if his will be needing HD weekly. I defer that question to the manager of corporate communications. Objective vital signs Vital Sign Date Time Temp Pulse Resp B/P (MAP) Pulse Ox O2 Delivery O2 Flow Rate FiO2 11/02/24 15:33 168/88 11/02/24 15:33 101.2 11/02/24 14:02 16 94 Hi-Flow Heated NC+ 25 40 40 11/02/24 14:02 92 Total Intake and Output 11/01/24 11/01/24 11/02/24 15:00 23:00 07:00 Intake Total 390 ml 600 ml 240 ml Output Total 480 ml 350 ml Balance 390 ml 120 ml -110 ml medications Current Medications Medications Dose Ordered Sig/Ray Route Start Time Stop Time Status Last Admin Dose Admin Vancomycin HCl 0 ml @ 0 mls/hr UD IV 10/26/24 20:00 Sodium Chloride 10 ml Q8HR IV 10/27/24 06:00 11/02/24 14:24 10 ML Acetaminophen/ Hydrocodone Bitart 1 tab Q4HP PRN PO 10/27/24 01:00 10/30/24 23:31 1 TAB Ondansetron HCl 4 mg Q4HP PRN IV 10/27/24 01:00 Docusate Sodium 100 mg BIDPRN PRN PO 10/27/24 01:00 Acetaminophen 650 mg Q6HP PRN PO 10/27/24 01:00 11/02/24 15:33 650 MG Nitroglycerin 0.4 mg Q5MINP PRN SL 10/27/24 03:00 Morphine Sulfate 2 mg Q30M PRN IV 10/27/24 03:00 Insulin Human Regular IQ4HR SC 10/27/24 12:00 Hold 11/01/24 16:25 6 UNITS Dextrose 50 ml UD PRN IV 10/27/24 08:30 Pantoprazole Sodium 40 mg BID IV 10/27/24 22:00 11/02/24 10:32 40 MG Insulin Glargine 10 units QAM SC 10/28/24 07:00 11/02/24 06:22 10 UNITS Hydralazine HCl 10 mg Q6HP PRN IV 10/28/24 10:45 11/02/24 15:33 10 MG Nifedipine 30 mg DAILY PO 10/29/24 10:00 10/31/24 15:40 30 MG Cefepime HCl 50 ml @ 12.5 mls/hr DAILY IV 10/29/24 10:00 11/01/24 10:25 12.5 MLS/HR Erythromycin 1 applic Q4HR OP 10/30/24 02:00 11/02/24 14:23 1 APPLIC Ipratropium [place] 0.5 mg Q2HPRN PRN NEB 10/30/24 08:00 10/31/24 07:08 0.5 MG Albuterol 2.5 mg Q2HPRN PRN NEB 10/30/24 08:00 10/31/24 07:08 2.5 MG Sevelamer HCl 1,600 mg TIDWM PO 10/30/24 18:00 11/02/24 08:45 1,600 MG Albumin Human 100 ml @ 100 mls/hr PRN PRN IV 11/01/24 11:30 11/02/24 11:03 100 MLS/HR Heparin Sodium (Porcine) 5,000 units Q12HR SC 11/02/24 10:00 Diagnostic Test (Pha) 1 strip ACHS 11/02/24 13:45 Examination General Appearance: Alert, Oriented X3, Cooperative, No acute distress, on BIPAP in CATH-ICU Head: Atraumatic Eye: RIGHT -->Hordelum, Less swelling, Mild erythema --> less drainage today Left: normal Ear: no discharge noted Nose:no discharge noted Respiratory: congestion Cardiovascular: Regular rate, Normal S1, Normal S2, No murmurs, no chest wall tenderness Abdominal: NO distention, no tenderness, bowel sounds present, no scars noted Extremities: Left: swollen, peripheral thrombus, bluish discoloration Right: IV lines No clubbing, No cyanosis, No edema, Normal pulses, No tenderness/swelling Skin: No rashes, No breakdown, No significant lesion Neuro: Normal gait, Normal speech, Strength at 5/5 X4 ext, Normal tone, Sensation intact, Cranial nerves 3-12 NL, Reflexes 2+ Psych/Mental Status: Mental status NL, Mood NL laboratory and microbiology Laboratory Tests 11/02/24 03:38 11/01/24 05:11 Test 11/02/24 03:38 Range/Units Serum Glucose 116 H 74-106 mg/dL Microbiology Date/Time Source Procedure Growth Status 10/27/24 12:00 Urine - [place] Urine Culture - Final Complete 10/26/24 20:00 Blood Blood Culture - Final NO GROWTH AFTER 5 DAYS OF INCUBATION. Complete Problem List/Assessment/Plan Problem List/Assessment/Plan Assessment Severe Sepsis due to UTI/cellulitis UTI Metabolic acidosis Preseptal cellulitis--> improving Facial cellulitis Hyperglycemia, Hgb: 9.6 Severe enema status post 4 blood transfusion, hb: 9.3 Rule out GI bleed Melena rule out GI bleed Diabetes mellitus type II Hyperkalemia--> RESOLVED Mild hyponatremia Acute kidney injury likely septic ATN versus other etiology Pneumonia Pulmonary edema on HD X 3 Plan Start Meropenem erythromycin ointment Protonix 40mg bid Lantus 10 unit daily Moderate sliding scale: hold N/S maintainence at 100ml/hr: Stop Check and replace electrolytes Repeat labs in the AM GI following Nephrology following Cardiology: No intervention at this time Heparin 5000 unit q12hr Nephrology following On HD Stop: Vancomycin and Cefepime DVT prophylasix : Heparin Diet: renal Code status: Full Goal of care discussed for more than 45 minutes Case and plan reviewed with Dr. Clark Plan discussed with: Patient My Orders My Orders Orders - JEANETTE BEDOYA Procedure Category Date Status Time Heparin Sodium PHA 11/02/24 In Process (Porcine) 10:00 Glucose Blood PHA 11/02/24 In Process (Accu-Chek Comfort 13:45 Dietary Evaluation Review Comments: Recommend liberalize diet to a Renal Standard diet once pt has a routine dialysis treatments scheduled. Expected Outcomes/Goals: less uremic symptoms, improved appetite and improvedd lab values. CC Plasma Assessment Blood Product Administration S: [id number] Date of Service: Nov 02, 2024 Billing Provider: LIBAN CLARK MD Common Visit Codes: [id number] CARE 30-74 MIN JEANETTE BEDOYA Nov 02, 2024 16:08 LIBAN CLARK MD Nov 02, 2024 19:36
[2024-11-02] MEDS: ACCU-CHEK COMFORT CURVE STRIP VI SCH (16:10)
[2024-11-02 20:02] LABS: Chloride 99 mmol/L (98-107); Potassium 3.6 mmol/L (3.5-5.1)
[2024-11-02 20:03] LABS: Anion Gap 8 (5-15); Carbon Dioxide 28 mmol/L (20-31)
[2024-11-02 20:08] LABS: BUN/Creatinine Ratio 3.7 (10.0-20.0); Blood Urea Nitrogen 11 mg/dL (9-23); Calcium 8.4 mg/dL (8.7-10.4); Glucose 141 mg/dL (74-106); Sodium 135 mmol/L (136-145)
[2024-11-02] MEDS ORDERED: VANCOMYCIN 500mg/100mL 100 ML IV ONE (21:00)
[2024-11-02] MEDS: MEROPENEM 500MG IVPB 50 ML IV SCH (21:38)
[2024-11-02] MEDS ORDERED: MEROPENEM 500MG IVPB 50 ML IV SCH (22:00)
[2024-11-03] VITALS (29 sets, daily range): BP systolic 108–168; BP diastolic 40–82; PULSE 77–91; RESP 12–24; TEMP 97.7–99.5; O2SAT 96–100
[2024-11-03 05:25] LABS: Basophils # (auto) 0 10 ^3/uL (0-0.2); Basophils % (auto) 0.2 % (0.0-2.0); Eosinophils # (auto) 0.3 10 ^3/uL (0-0.8); Eosinophils % (auto) 2.7 % (0.0-7.0); Hematocrit 31.5 % (36.0-46.0); Hemoglobin 10.2 g/dL (12.2-16.2); Lymphocytes # (auto) 0.6 10 ^3/uL (0.4-5.4); Lymphocytes % (auto) 6.6 % (10.0-50.0); Mean Corpuscular Hemoglobin 28.6 pg (28.0-32.0); Mean Corpuscular Hgb Conc. 32.5 g/dL (32.0-36.0); Monocytes # (auto) 1.1 10 ^3/uL (0-1.3); Neutrophils # (auto) 7.4 10 ^3/uL (1.6-8.6); Neutrophils % (auto) 78.5 % (37.0-80.0); Nucleated Red Blood Cells % 0.1 %; Platelet Count (auto) 173 10^3/uL (140-450); Red Blood Cells 3.58 10^6/uL (4.0-5.20); Red Cell Distribution Width 15.3 % (11.8-14.3); White Blood Cell 9.4 10^3/uL (4.4-10.8)
[2024-11-03 05:38] LABS: INR 1.14 (0.9-1.15); Partial Thromboplastin Time 40.5 SEC (24.5-34.5); Prothrombin Time 11.9 sec (9.3-11.8)
[2024-11-03 05:39] LABS: Alanine Aminotransferase 14 U/L (7-40); Albumin 3.6 g/dL (3.2-4.8); Alkaline Phosphatase 69 U/L (46-116); Anion Gap 9 (5-15); Aspartate Aminotransferase 29 U/L (13-40); BUN/Creatinine Ratio 4.4 (10.0-20.0); Blood Urea Nitrogen 16 mg/dL (9-23); Calcium 9.2 mg/dL (8.7-10.4); Carbon Dioxide 29 mmol/L (20-31); Chloride 100 mmol/L (98-107); Potassium 3.6 mmol/L (3.5-5.1); Sodium 138 mmol/L (136-145)
[2024-11-03 05:40] LABS: Bilirubin, Total 0.5 mg/dL (0.2-1.0); Total Protein 6.6 g/dL (5.7-8.2)
[2024-11-03 05:41] LABS: Glucose 112 mg/dL (74-106)
--- NOTE | 2024-11-03 11:32 | DVHPN2 ---
Progress Note Date Seen: Nov 03, 2024 Has the PT tested + for MRSA If YES, has PT been informed?: No Medical Necessity Reason Pt with a Central, PICC or Fol: Yes The following are medically ne: Pablo Catheter Subjective Review of Systems: RESPIRATORY:Abnormal Other Systems: Patient seen and examined by myself today in follow-up, patient required high flow oxygen Objective vital signs Vital Sign Date Time Temp Pulse Resp B/P (MAP) Pulse Ox O2 Delivery O2 Flow Rate FiO2 11/03/24 11:25 98.3 86 18 141/71 (94) 97 98.3 11/03/24 10:00 Oxymizer 5 N/A Total Intake and Output 11/02/24 11/02/24 11/03/24 15:00 23:00 07:00 Intake Total 200 ml 74 ml 76 ml Output Total 250 ml 125 ml Balance 200 ml -176 ml -49 ml medications Current Medications Medications Dose Ordered Sig/Ray Route Start Time Stop Time Status Last Admin Dose Admin Sodium Chloride 10 ml Q8HR IV 10/27/24 06:00 11/03/24 05:54 10 ML Acetaminophen/ Hydrocodone Bitart 1 tab Q4HP PRN PO 10/27/24 01:00 10/30/24 23:31 1 TAB Ondansetron HCl 4 mg Q4HP PRN IV 10/27/24 01:00 Docusate Sodium 100 mg BIDPRN PRN PO 10/27/24 01:00 Acetaminophen 650 mg Q6HP PRN PO 10/27/24 01:00 11/02/24 20:42 650 MG Nitroglycerin 0.4 mg Q5MINP PRN SL 10/27/24 03:00 Morphine Sulfate 2 mg Q30M PRN IV 10/27/24 03:00 Insulin Human Regular IQ4HR SC 10/27/24 12:00 Hold 11/01/24 16:25 6 UNITS Dextrose 50 ml UD PRN IV 10/27/24 08:30 Pantoprazole Sodium 40 mg BID IV 10/27/24 22:00 11/03/24 10:04 40 MG Insulin Glargine 10 units QAM SC 10/28/24 07:00 11/02/24 06:22 10 UNITS Hydralazine HCl 10 mg Q6HP PRN IV 10/28/24 10:45 11/03/24 05:06 10 MG Nifedipine 30 mg DAILY PO 10/29/24 10:00 10/31/24 15:40 30 MG Erythromycin 1 applic Q4HR OP 10/30/24 02:00 11/03/24 10:05 1 APPLIC Ipratropium [place] 0.5 mg Q2HPRN PRN NEB 10/30/24 08:00 10/31/24 07:08 0.5 MG Albuterol 2.5 mg Q2HPRN PRN NEB 10/30/24 08:00 10/31/24 07:08 2.5 MG Sevelamer HCl 1,600 mg TIDWM PO 10/30/24 18:00 11/02/24 17:28 1,600 MG Albumin Human 100 ml @ 100 mls/hr PRN PRN IV 11/01/24 11:30 11/02/24 11:03 100 MLS/HR Heparin Sodium (Porcine) 5,000 units Q12HR SC 11/02/24 10:00 Diagnostic Test (Pha) 1 strip ACHS 11/02/24 13:45 11/03/24 06:04 1 STRIP Meropenem 50 ml @ 17 mls/hr Q24H IV 11/02/24 22:00 11/02/24 21:38 17 MLS/HR Examination: LUNGS:Normal, CVS:Normal, MSK:Normal laboratory and microbiology Laboratory Tests 11/03/24 05:03 Test 11/03/24 05:03 Range/Units Serum Glucose 112 H 74-106 mg/dL Microbiology Date/Time Source Procedure Growth Status 10/27/24 12:00 Urine - [place] Urine Culture - Final Complete 10/26/24 20:00 Blood Blood Culture - Final NO GROWTH AFTER 5 DAYS OF INCUBATION. Complete Problem List/Assessment/Plan Problem List/Assessment/Plan Chronic kidney disease stage 5 now end-stage renal disease requiring hemodialysis 3 times weekly Chronic kidney disease stage 4 followed in my clinic Acute respiratory failure, status post BiPAP Congestive heart failure, ejection fraction 35% Pulmonary edema Hyperkalemia Metabolic acidosis Right ophthalmitis/periorbital cellulitis Anemia with black stool Hemoglobin is stable Hyperphosphatemia Recommendations Hemodialysis tomorrow, use no heparin Epogen 57866 IV post hemodialysis Social service for outpatient hemodialysis chair time IV antibiotics Renvela 1600 mg p.o. t.i.d. with meals Eyedrops GI consult Renal diet We will continue to follow I discussed my plan of care with the patient and her at the bedside Plan discussed with: Patient, Spouse Dietary Evaluation Review Comments: Recommend liberalize diet to a Renal Standard diet once pt has a routine dialysis treatments scheduled. Expected Outcomes/Goals: less uremic symptoms, improved appetite and improvedd lab values. CC Plasma Assessment Blood Product Administration S: [id number] DIETER GUZMAN MD Nov 03, 2024 11:32
[2024-11-03] MEDS ORDERED: PROPOFOL 10 MG/ML 20 ML IV ONE (13:54)
[2024-11-03] MEDS ORDERED: LIDOCAINE 2% (LOCAL ANESTH.) PF 5ml SDV ONE (13:54)
--- NOTE | 2024-11-03 14:24 | DVHOP2 ---
Operative Report DATE OF OPERATION: 11/03/24 PROCEDURE: Upper Endoscopy with biopsy. PREOPERATIVE INDICATION: The patient is a 54 -year-old female undergoing endoscopy for history of upper GI bleed and coffee-ground emesis and anemia POSTOPERATIVE DIAGNOSES: 1. Patient had a 1 cm pre-pyloric deep antral gastric ulcer with surrounding hyperemia erythema and gastritis and mucosal edema. This was Norbert classification C with no visible vessel or active bleeding 2. Mild gastroduodenitis 3. 1-2 cm sliding-type hiatal hernia with slightly irregular squamocolumnar junction and minimal grade a erosive esophagitis 4. Otherwise normal examination up to the 2nd and 3rd part of the duodenal with no active bleeding and good bile drainage PROCEDURE PERFORMED BY: Milton Anglin GI NURSE: Ar SCOPE: Olympus videoendoscope. ASA CLASS: 3. PREOPERATIVE MEDICATIONS: Mac sedation, Ernie Henry PROCEDURE IN DETAIL: After obtaining an informed consent, the patient was placed on left lateral decubitus position. The patient was then sedated with th e above medications. A bite block was placed between her teeth. The endoscope was then passed through the oropharynx, into the esophagus, and through the stomach and pylorus up to the second and third part of the duodenum. The endoscope was then withdrawn. Second and 3rd part of the duodenal were normal. Duodenal bulb showed minimal duodenitis. Duodenal biopsies were obtained The pre-pyloric area antrum and body showed mild to moderate gastritis. There was antral hyperemia erythema and a 1 cm antral pre-pyloric gastric ulcer This was Norbert classification C with no visible vessel or active bleeding. There was surrounding erythema hyperemia and mucosal edema On retroflexion the fundus cardia and angularis were normal. Gastric biopsies were obtained. The endoscope was then withdrawn into the distal esophagus Patient had a 1-2 cm sliding-type hiatal hernia with slightly irregular squamocolumnar junction minimal grade a erosive esophagitis The remaining distal and proximal esophagus and oropharynx were unremarkable. There was a columnar rest of columnar epithelium in the proximal esophagus suggestive of chronic GERD The patient tolerated the procedure well without difficulty. COMPLICATIONS : None SPECIMENS: Duodenal biopsies Gastric biopsies DISPOSITION: Transfer back to the floor Stable PLAN: 1. Await for biopsy result 2. Will place pt on Protonix 40 mg bid 3. Continue Carafate 1 g p.o. 4 times a day 4. DC aspirin NSAIDs smoking alcohol 5. Resume full liquid diet advance as tolerated MILTON ANGLIN MD Nov 03, 2024 14:24
--- NOTE | 2024-11-03 17:31 | DVHPNRES ---
Progress Note Date Seen: Nov 03, 2024 Resident Creating Document: JEANETTE BEDOYA RESIDENT Has the PT tested + for MRSA If YES, has PT been informed?: No Medical Necessity Reason Pt with a Central, PICC or Fol: Yes The following are medically ne: Pablo Catheter Medical Necessity Reason Onset end-stage renal on hemodialysis we will be needing hemodialysis 3 times a week Subjective Review of Systems Review of Systems This is a 54-year-old female who the past medical history of diabetes and kidney disease presented to the [facility] with the compliant of right eye swelling, redness, and persistent discharge for a proximally 4 days duration. Per patient, she woke up from bed 4 days ago and noted that her right eye was swollen and discharging fluid. Patient said she used [id number] topical medications without any improvement. This as the day progresses so did the swelling to the point that yesterday patient was unable to open her eyes as it was filled with pus. Patient was then advised to come to the ED for evaluation and management. In the ED, patient denied chest pain, no headache, no dizziness, no diaphoresis, no shortness of breath, no nausea, no vomiting, fever, no chills. Initial vital data showed BP:124/68, HR: 92, temp: 97.8 F, O2 saturation 98% on room air. Lab work showed WBC 19.9, hemoglobin 5.2, hematocrit 17.5, platelets 370, sodium 136, potassium 6.6, BUN 77, creatinine 9.53, GFR 5, glucose 230, AST 10, ALT 11. Maxillofacial CT revealing right preseptal cellulitis as well as cellulitis along the anterior lateral right cheek. Patient was started on IV antibiotic regimen vancomycin, received 2 units of PRBC. On my evaluation, patient was bed with her right eye closed with pus discharging. Patient expressed tenderness her right eye swelling red. PN: 10/29/2024: Patient is seen and examined at the bedside with her present. Ocular cellulitis is decreasing , but still has some drainage coming from the right eye. I showed patient how to use wet and warm wash cloth or gauze to gently wipe off the thick pus from her eye. I also showed her to use warm compress with gentle eyelid massage. Patient noted to have fever,but no cough. This afternoon, her nurse called to tell me that patient SpO2 is in the 80s. I order chest x-ray stat, abg stat and called RT. Temp is 99.9, pulse 119, SpO2: 90, hb: 9.6 PN: 10/30/2024: Patient is seen and examined at the bedside. Her ocular cellulitis is improving in size and also in redness. She has a thrombosis in the cephalic vein of the left arm a superficial vein with discoloration of her left up extremity. Also patient has been bend bound so will start her on prophylatic lovenox. Labs today, WBC: 11 ( trending down), hgb: 10, Iron: 17L, Na: 135, cr: 8.38. Patient seen by the director strategic account management. She will start dialysis tomorrow. PN: 10/31/2024: Patient is seen and examined today. With regards to her right eye, it is getting better. She is able to see from the eye. Patient will be having the tunnel catheter today for urgent dialysis. Patient had tunneled catheter done today after the procedure she rolls on 100% FiO2 therefore patient had to be upgraded to do U for close observation. Per the fence laborer nurse patient will be undergoing dialysis today but the time was not given. But currently the patient is currently under [facility] status. PN: 11/01/2024: Patient seen and examined at the Cath -ICU. She remains on Bipap and doing well. She recieved HD yesterd with 2.5L removed. She had another HD today with 2.7 L removed. Lab work shows wbc: 9.7. Temp: 99.4. Antibiotics is Vancomycin and cefepime. PN: 11/02/2024. Patient seen and examined to day. she was getting her dialysis at the time of my visit. She has no complaints. Labs today cr: 4.66 and gfr: 11. Vitals: 101.4 and BP: 168/88. Patient currently on Vancomycin and cefepime. Will stop these two antibiotics and start only meropenem. I spoke with her today and gave him up dated. He wanted to know if his will be needing HD weekly. I defer that question to the director strategic account management. PN 11/03/2024: Patient is seen and examined today in the [facility] and was later transferred down to the [facility] floor on telemetry. She denies any chest pain, abdominal pain,nausea or vomiting. Her labs values stable hb at 10.2. cr: 3.66. She is followed by the director strategic account management who has now diagnosed her of end- stage renal disease and been eating the hemodialysis 3 times a week. Objective vital signs Vital Sign Date Time Temp Pulse Resp B/P (MAP) Pulse Ox O2 Delivery O2 Flow Rate FiO2 11/03/24 16:30 97.7 88 12 142/68 (92) 97 97.7 11/03/24 10:00 Oxymizer 5 N/A Total Intake and Output 11/02/24 11/02/24 11/03/24 15:00 23:00 07:00 Intake Total 200 ml 74 ml 76 ml Output Total 250 ml 125 ml Balance 200 ml -176 ml -49 ml medications Current Medications Medications Dose Ordered Sig/Ray Route Start Time Stop Time Status Last Admin Dose Admin Sodium Chloride 10 ml Q8HR IV 10/27/24 06:00 11/03/24 05:54 10 ML Acetaminophen/ Hydrocodone Bitart 1 tab Q4HP PRN PO 10/27/24 01:00 10/30/24 23:31 1 TAB Ondansetron HCl 4 mg Q4HP PRN IV 10/27/24 01:00 Docusate Sodium 100 mg BIDPRN PRN PO 10/27/24 01:00 Acetaminophen 650 mg Q6HP PRN PO 10/27/24 01:00 11/02/24 20:42 650 MG Nitroglycerin 0.4 mg Q5MINP PRN SL 10/27/24 03:00 Morphine Sulfate 2 mg Q30M PRN IV 10/27/24 03:00 Insulin Human Regular IQ4HR SC 10/27/24 12:00 Hold 11/01/24 16:25 6 UNITS Dextrose 50 ml UD PRN IV 10/27/24 08:30 Pantoprazole Sodium 40 mg BID IV 10/27/24 22:00 11/03/24 10:04 40 MG Insulin Glargine 10 units QAM SC 10/28/24 07:00 11/02/24 06:22 10 UNITS Hydralazine HCl 10 mg Q6HP PRN IV 10/28/24 10:45 11/03/24 05:06 10 MG Nifedipine 30 mg DAILY PO 10/29/24 10:00 10/31/24 15:40 30 MG Erythromycin 1 applic Q4HR OP 10/30/24 02:00 11/03/24 16:08 1 APPLIC Ipratropium [place] 0.5 mg Q2HPRN PRN NEB 10/30/24 08:00 10/31/24 07:08 0.5 MG Albuterol 2.5 mg Q2HPRN PRN NEB 10/30/24 08:00 10/31/24 07:08 2.5 MG Sevelamer HCl 1,600 mg TIDWM PO 10/30/24 18:00 11/02/24 17:28 1,600 MG Albumin Human 100 ml @ 100 mls/hr PRN PRN IV 11/01/24 11:30 11/02/24 11:03 100 MLS/HR Heparin Sodium (Porcine) 5,000 units Q12HR SC 11/02/24 10:00 Diagnostic Test (Pha) 1 strip ACHS 11/02/24 13:45 11/03/24 15:31 1 STRIP Meropenem 50 ml @ 17 mls/hr Q24H IV 11/02/24 22:00 11/02/24 21:38 17 MLS/HR Sucralfate 1 gm QID@0600,1130,1700,2200 PO 11/03/24 17:00 Examination General Appearance: Alert, Oriented X3, Cooperative, No acute distress, on BIPAP in CATH-ICU Head: Atraumatic Eye: RIGHT -->[place], Less swelling, Mild erythema --> less drainage today Left: normal Ear: no discharge noted Nose:no discharge noted Mouth: oral trush Respiratory: congestion Cardiovascular: Regular rate, Normal S1, Normal S2, No murmurs, no chest wall tenderness Abdominal: NO distention, no tenderness, bowel sounds present, no scars noted Extremities: Left: swollen, peripheral thrombus, bluish discoloration Right: IV lines No clubbing, No cyanosis, No edema, Normal pulses, No tenderness/swelling Skin: No rashes, No breakdown, No significant lesion Neuro: Normal gait, Normal speech, Strength at 5/5 X4 ext, Normal tone, Sensation intact, Cranial nerves 3-12 NL, Reflexes 2+ Psych/Mental Status: Mental status NL, Mood NL laboratory and microbiology Laboratory Tests 11/03/24 05:03 Test 11/03/24 05:03 Range/Units Serum Glucose 112 H 74-106 mg/dL Microbiology Date/Time Source Procedure Growth Status 10/27/24 12:00 Urine - [place] Urine Culture - Final Complete 10/26/24 20:00 Blood Blood Culture - Final NO GROWTH AFTER 5 DAYS OF INCUBATION. Complete Problem List/Assessment/Plan Problem List/Assessment/Plan Assessment Severe Sepsis due to UTI/cellulitis UTI Metabolic acidosis Preseptal cellulitis--> improving Facial cellulitis Hyperglycemia, Hgb: 9.6 Severe enema status post 4 blood transfusion, hb: 9.3 Rule out GI bleed Melena rule out GI bleed Diabetes mellitus type II Hyperkalemia--> RESOLVED Mild hyponatremia Acute kidney injury likely septic ATN versus other etiology Pneumonia Pulmonary edema on HD X 3 Oral thrush ( new) Plan Continue Meropenem erythromycin ointment Protonix 40mg bid Lantus 10 unit daily Moderate sliding scale: hold N/S maintainence at 100ml/hr: Stop Check and replace electrolytes Repeat labs in the AM GI following Nephrology following Cardiology: No intervention at this time Heparin 5000 unit q12hr Nephrology following On HD Nystatin switch and swallow Stop: Vancomycin and Cefepime DVT prophylasix : Heparin Diet: renal Code status: Full Goal of care discussed for more than 45 minutes Case and plan reviewed with Dr. Clark Plan discussed with: Patient My Orders My Orders Orders - JEANETTE BEDOYA RESIDENT Procedure Category Date Status Time Nystatin PHA 11/03/24 Logged (Mouth-Throat) 18:00 Dietary Evaluation Review Comments: Recommend liberalize diet to a Renal Standard diet once pt has a routine dialysis treatments scheduled. Expected Outcomes/Goals: less uremic symptoms, improved appetite and improvedd lab values. CC Plasma Assessment Blood Product Administration S: [id number] JEANETTE BEDOYA RESIDENT Nov 03, 2024 17:31
[2024-11-03] MEDS: SUCRALFATE 1 GM/10 ML ORAL SUSP PO SCH (17:35)
[2024-11-03] MEDS: NYSTATIN (MOUTH-THROAT) 500,000 UNITS/5 ML SUSP MT SCH (18:06)
[2024-11-04] VITALS (10 sets, daily range): BP systolic 121–144; BP diastolic 61–87; PULSE 78–85; RESP 16–20; TEMP 98.2–99.1; O2SAT 95–100
[2024-11-04 06:48] LABS: Basophils # (auto) 0 10 ^3/uL (0-0.2); Basophils % (auto) 0.5 % (0.0-2.0); Eosinophils # (auto) 0.4 10 ^3/uL (0-0.8); Eosinophils % (auto) 4.2 % (0.0-7.0); Hematocrit 30.1 % (36.0-46.0); Hemoglobin 9.8 g/dL (12.2-16.2); Lymphocytes % (auto) 11.8 % (10.0-50.0); Mean Corpuscular Hemoglobin 28.9 pg (28.0-32.0); Mean Corpuscular Hgb Conc. 32.4 g/dL (32.0-36.0); Mean Corpuscular Volume 89.3 fL (80.0-100.0); Monocytes # (auto) 1.2 10 ^3/uL (0-1.3); Monocytes % (auto) 13.6 % (0.0-12.0); Neutrophils # (auto) 5.9 10 ^3/uL (1.6-8.6); Neutrophils % (auto) 69.9 % (37.0-80.0); Nucleated Red Blood Cells % 0.1 %; Platelet Count (auto) 170 10^3/uL (140-450); Red Blood Cells 3.37 10^6/uL (4.0-5.20); Red Cell Distribution Width 14.9 % (11.8-14.3); White Blood Cell 8.5 10^3/uL (4.4-10.8)
[2024-11-04] MEDS: SODIUM CHL 0.9% 1000 ML BAG XX ONE (07:00)
[2024-11-04 07:07] LABS: Alanine Aminotransferase 14 U/L (7-40); Albumin 3.4 g/dL (3.2-4.8); Alkaline Phosphatase 67 U/L (46-116); Anion Gap 9 (5-15); Aspartate Aminotransferase 25 U/L (13-40); BUN/Creatinine Ratio 5.5 (10.0-20.0); Calcium 8.8 mg/dL (8.7-10.4); Carbon Dioxide 27 mmol/L (20-31); Chloride 101 mmol/L (98-107); Potassium 3.6 mmol/L (3.5-5.1); Sodium 137 mmol/L (136-145)
[2024-11-04 07:08] LABS: Bilirubin, Total 0.4 mg/dL (0.2-1.0); Total Protein 6.2 g/dL (5.7-8.2)
[2024-11-04 07:29] LABS: Blood Urea Nitrogen 28 mg/dL (9-23); Glucose 118 mg/dL (74-106)
--- NOTE | 2024-11-04 11:41 | DVHPN2 ---
Progress Note Date Seen: Nov 04, 2024 Has the PT tested + for MRSA If YES, has PT been informed?: No Medical Necessity Reason Pt with a Central, PICC or Fol: Yes The following are medically ne: Pablo Catheter Subjective Patient reports: No new complaints Other Systems: Patient seen and examined by myself today in follow-up Patient examined hemodialysis, blood pressure stable Objective vital signs Vital Sign Date Time Temp Pulse Resp B/P (MAP) Pulse Ox O2 Delivery O2 Flow Rate FiO2 11/04/24 08:43 98.2 84 16 134/81 (98) 98 98.2 11/03/24 23:56 Nasal Cannula 2.0 11/03/24 23:56 28 Total Intake and Output 11/03/24 11/03/24 11/04/24 15:00 23:00 07:00 Intake Total 10 ml 100 ml Output Total 125 ml 125 ml Balance 10 ml -125 ml -25 ml medications Current Medications Medications Dose Ordered Sig/Ray Route Start Time Stop Time Status Last Admin Dose Admin Sodium Chloride 10 ml Q8HR IV 10/27/24 06:00 11/04/24 05:50 10 ML Acetaminophen/ Hydrocodone Bitart 1 tab Q4HP PRN PO 10/27/24 01:00 10/30/24 23:31 1 TAB Ondansetron HCl 4 mg Q4HP PRN IV 10/27/24 01:00 Docusate Sodium 100 mg BIDPRN PRN PO 10/27/24 01:00 Acetaminophen 650 mg Q6HP PRN PO 10/27/24 01:00 11/02/24 20:42 650 MG Nitroglycerin 0.4 mg Q5MINP PRN SL 10/27/24 03:00 Morphine Sulfate 2 mg Q30M PRN IV 10/27/24 03:00 Insulin Human Regular IQ4HR SC 10/27/24 12:00 Hold 11/01/24 16:25 6 UNITS Dextrose 50 ml UD PRN IV 10/27/24 08:30 Pantoprazole Sodium 40 mg BID IV 10/27/24 22:00 11/04/24 09:34 40 MG Insulin Glargine 10 units QAM SC 10/28/24 07:00 11/02/24 06:22 10 UNITS Hydralazine HCl 10 mg Q6HP PRN IV 10/28/24 10:45 11/03/24 05:06 10 MG Nifedipine 30 mg DAILY PO 10/29/24 10:00 10/31/24 15:40 30 MG Erythromycin 1 applic Q4HR OP 10/30/24 02:00 11/04/24 11:01 1 APPLIC Ipratropium [place] 0.5 mg Q2HPRN PRN NEB 10/30/24 08:00 10/31/24 07:08 0.5 MG Albuterol 2.5 mg Q2HPRN PRN NEB 10/30/24 08:00 10/31/24 07:08 2.5 MG Sevelamer HCl 1,600 mg TIDWM PO 10/30/24 18:00 11/04/24 09:34 1,600 MG Albumin Human 100 ml @ 100 mls/hr PRN PRN IV 11/01/24 11:30 11/02/24 11:03 100 MLS/HR Diagnostic Test (Pha) 1 strip ACHS 11/02/24 13:45 11/04/24 11:06 1 STRIP Meropenem 50 ml @ 17 mls/hr Q24H IV 11/02/24 22:00 11/03/24 22:59 17 MLS/HR Sucralfate 1 gm QID@0600,1130,1700,2200 PO 11/03/24 17:00 11/04/24 11:05 1 GM Nystatin 5 ml QID MT 11/03/24 18:00 11/04/24 05:50 5 ML Examination: LUNGS:Normal, CVS:Normal, MSK:Normal laboratory and microbiology Laboratory Tests 11/04/24 05:48 Test 11/04/24 05:48 Range/Units Serum Glucose 118 H 74-106 mg/dL Microbiology Date/Time Source Procedure Growth Status 10/27/24 12:00 Urine - [place] Urine Culture - Final Complete 10/26/24 20:00 Blood Blood Culture - Final NO GROWTH AFTER 5 DAYS OF INCUBATION. Complete Problem List/Assessment/Plan Problem List/Assessment/Plan Chronic kidney disease stage 5 now end-stage renal disease requiring hemodialysis 3 times weekly Chronic kidney disease stage 4 followed in my clinic Acute respiratory failure, status post BiPAP Congestive heart failure, ejection fraction 35% Pulmonary edema Hyperkalemia Metabolic acidosis Right ophthalmitis/periorbital cellulitis Anemia with black stool Hemoglobin is stable Hyperphosphatemia Recommendations Continue with UF 2 L as tolerated, use no heparin Epogen [id number] IV post hemodialysis Social service for outpatient hemodialysis chair time IV antibiotics Renvela 1600 mg p.o. t.i.d. with meals Eyedrops GI consult Renal diet We will continue to follow I discussed my plan of care with the patient and her at the bedside Plan discussed with: Patient, Spouse My Orders My Orders Orders - DIETER GUZMAN MD Procedure Category Date Status Time Communication Order ORDERS 11/03/24 Transmitted 10:56 Dietary Evaluation Review Comments: Recommend liberalize diet to a Renal Standard diet once pt has a routine dialysis treatments scheduled. Expected Outcomes/Goals: less uremic symptoms, improved appetite and improvedd lab values. CC Plasma Assessment Blood Product Administration S: [id number] DIEETR GUZMAN MD Nov 04, 2024 11:41
[2024-11-04] MEDS: InsuLIN REG 1unit/0.01ml Soln (100units/ml) SC SCH (13:20)
--- NOTE | 2024-11-04 16:10 | DVHPNRES ---
Progress Note Date Seen: Nov 04, 2024 Resident Creating Document: JEANETTE BEDOYA RESIDENT Has the PT tested + for MRSA If YES, has PT been informed?: No Medical Necessity Reason Pt with a Central, PICC or Fol: Yes The following are medically ne: Pablo Catheter Medical Necessity Reason DIALYSIS TODAY Subjective Review of Systems This is a 54-year-old female who the past medical history of diabetes and kidney disease presented to the [facility] with the compliant of right eye swelling, redness, and persistent discharge for a proximally 4 days duration. Per patient, she woke up from bed 4 days ago and noted that her right eye was swollen and discharging fluid. Patient said she used [id number] topical medications without any improvement. This as the day progresses so did the swelling to the point that yesterday patient was unable to open her eyes as it was filled with pus. Patient was then advised to come to the ED for evaluation and management. In the ED, patient denied chest pain, no headache, no dizziness, no diaphoresis, no shortness of breath, no nausea, no vomiting, fever, no chills. Initial vital data showed BP:124/68, HR: 92, temp: 97.8 F, O2 saturation 98% on room air. Lab work showed WBC 19.9, hemoglobin 5.2, hematocrit 17.5, platelets 370, sodium 136, potassium 6.6, BUN 77, creatinine 9.53, GFR 5, glucose 230, AST 10, ALT 11. Maxillofacial CT revealing right preseptal cellulitis as well as cellulitis along the anterior lateral right cheek. Patient was started on IV antibiotic regimen vancomycin, received 2 units of PRBC. On my evaluation, patient was bed with her right eye closed with pus discharging. Patient expressed tenderness her right eye swelling red. PN: 10/29/2024: Patient is seen and examined at the bedside with her present. Ocular cellulitis is decreasing , but still has some drainage coming from the right eye. I showed patient how to use wet and warm wash cloth or gauze to gently wipe off the thick pus from her eye. I also showed her to use warm compress with gentle eyelid massage. Patient noted to have fever,but no cough. This afternoon, her nurse called to tell me that patient SpO2 is in the 80s. I order chest x-ray stat, abg stat and called RT. Temp is 99.9, pulse 119, SpO2: 90, hb: 9.6 PN: 10/30/2024: Patient is seen and examined at the bedside. Her ocular cellulitis is improving in size and also in redness. She has a thrombosis in the cephalic vein of the left arm a superficial vein with discoloration of her left up extremity. Also patient has been bend bound so will start her on prophylatic lovenox. Labs today, WBC: 11 ( trending down), hgb: 10, Iron: 17L, Na: 135, cr: 8.38. Patient seen by the [facility] consultant. She will start dialysis tomorrow. PN: 10/31/2024: Patient is seen and examined today. With regards to her right eye, it is getting better. She is able to see from the eye. Patient will be having the tunnel catheter today for urgent dialysis. Patient had tunneled catheter done today after the procedure she rolls on 100% FiO2 therefore patient had to be upgraded to do U for close observation. Per the laborer carpentry dock nurse patient will be undergoing dialysis today but the time was not given. But currently the patient is currently under [facility] status. PN: 11/01/2024: Patient seen and examined at the Cath -ICU. She remains on Bipap and doing well. She recieved HD yesterd with 2.5L removed. She had another HD today with 2.7 L removed. Lab work shows wbc: 9.7. Temp: 99.4. Antibiotics is Vancomycin and cefepime. PN: 11/02/2024. Patient seen and examined to day. she was getting her dialysis at the time of my visit. She has no complaints. Labs today cr: 4.66 and gfr: 11. Vitals: 101.4 and BP: 168/88. Patient currently on Vancomycin and cefepime. Will stop these two antibiotics and start only meropenem. I spoke with her today and gave him up dated. He wanted to know if his will be needing HD weekly. I defer that question to the [facility] consultant. PN 11/03/2024: Patient is seen and examined today in the [facility] and was later transferred down to [facility] floor on telemetry. She denies any chest pain, abdominal pain,nausea or vomiting. Her labs values stable hb at 10.2. cr: 3.66. She is followed by the [facility] consultant who has now diagnosed her of end- stage renal disease and been eating the hemodialysis 3 times a week. PN 11/04/2024: Patient is seen and examined today. Patient is currently back on the med surgical 1 she is doing well on telemetry. Her I infection is improved he is doing well but patient is currently undergoing dialysis. She has used to have dialysis today. Her lab today revealed creatinine of 5.08, BUN of 28. Vitals as stable is doing well on her medications. We will continue to monitor cause social service to schedule a chair time for dialysis for patient. Objective vital signs Vital Sign Date Time Temp Pulse Resp B/P (MAP) Pulse Ox O2 Delivery O2 Flow Rate FiO2 11/04/24 14:10 95 Nasal Cannula* 2 28 11/04/24 13:00 98.7 85 18 126/71 (89) 98.7 Total Intake and Output 11/03/24 11/03/24 11/04/24 15:00 23:00 07:00 Intake Total 10 ml 100 ml Output Total 125 ml 125 ml Balance 10 ml -125 ml -25 ml medications Current Medications Medications Dose Ordered Sig/Ray Route Start Time Stop Time Status Last Admin Dose Admin Sodium Chloride 10 ml Q8HR IV 10/27/24 06:00 11/04/24 14:12 10 ML Acetaminophen/ Hydrocodone Bitart 1 tab Q4HP PRN PO 10/27/24 01:00 10/30/24 23:31 1 TAB Ondansetron HCl 4 mg Q4HP PRN IV 10/27/24 01:00 Docusate Sodium 100 mg BIDPRN PRN PO 10/27/24 01:00 Acetaminophen 650 mg Q6HP PRN PO 10/27/24 01:00 11/02/24 20:42 650 MG Nitroglycerin 0.4 mg Q5MINP PRN SL 10/27/24 03:00 Morphine Sulfate 2 mg Q30M PRN IV 10/27/24 03:00 Dextrose 50 ml UD PRN IV 10/27/24 08:30 Pantoprazole Sodium 40 mg BID IV 10/27/24 22:00 11/04/24 09:34 40 MG Insulin Glargine 10 units QAM SC 10/28/24 07:00 11/02/24 06:22 10 UNITS Hydralazine HCl 10 mg Q6HP PRN IV 10/28/24 10:45 11/03/24 05:06 10 MG Nifedipine 30 mg DAILY PO 10/29/24 10:00 10/31/24 15:40 30 MG Erythromycin 1 applic Q4HR OP 10/30/24 02:00 11/04/24 14:12 1 APPLIC Ipratropium [place] 0.5 mg Q2HPRN PRN NEB 10/30/24 08:00 10/31/24 07:08 0.5 MG Albuterol 2.5 mg Q2HPRN PRN NEB 10/30/24 08:00 10/31/24 07:08 2.5 MG Sevelamer HCl 1,600 mg TIDWM PO 10/30/24 18:00 11/04/24 09:34 1,600 MG Albumin Human 100 ml @ 100 mls/hr PRN PRN IV 11/01/24 11:30 11/02/24 11:03 100 MLS/HR Diagnostic Test (Pha) 1 strip ACHS 11/02/24 13:45 11/04/24 11:06 1 STRIP Meropenem 50 ml @ 17 mls/hr Q24H IV 11/02/24 22:00 11/03/24 22:59 17 MLS/HR Sucralfate 1 gm QID@0600,1130,1700,2200 PO 11/03/24 17:00 11/04/24 11:05 1 GM Nystatin 5 ml QID MT 11/03/24 18:00 11/04/24 05:50 5 ML Insulin Human Regular ACHS SC 11/04/24 12:15 11/04/24 13:20 3 UNITS Examination General Appearance: Alert, Oriented X3, Cooperative, No acute distress Head: Atraumatic Eye: RIGHT -->Hordeolum, Less swelling, Mild erythema --> Improved Left: normal Ear: no discharge noted Nose:no discharge noted Right side chest tunnel dialysis catheter Respiratory: CTAB Chest: Regular rate, Normal S1, Normal S2, No murmurs, no chest wall tenderness Abdominal: NO distention, no tenderness, bowel sounds present, no scars noted Extremities: Left arm: swollen, bluish discoloration Neuro: Normal gait, Normal speech, Strength at 5/5 X4 ext, Normal tone, Sensation intact, Cranial nerves 3-12 NL, Reflexes 2+ Psych/Mental Status: Mental status NL, Mood NL laboratory and microbiology Laboratory Tests 11/04/24 05:48 Test 11/04/24 05:48 Range/Units Serum Glucose 118 H 74-106 mg/dL Microbiology Date/Time Source Procedure Growth Status 10/27/24 12:00 Urine - [place] Urine Culture - Final Complete 10/26/24 20:00 Blood Blood Culture - Final NO GROWTH AFTER 5 DAYS OF INCUBATION. Complete Labs and/or images reviewed: Labs reviewed by me, Image(s) reviewed by me Problem List/Assessment/Plan Problem List/Assessment/Plan Assessment Severe Sepsis due to UTI/cellulitis UTI Metabolic acidosis Preseptal cellulitis--> improving Facial cellulitis Hyperglycemia, Hgb: 9.6 Severe enema status post 4 blood transfusion, hb: 9.3 Rule out GI bleed Melena rule out GI bleed Diabetes mellitus type II Hyperkalemia--> RESOLVED Mild hyponatremia Acute kidney injury likely septic ATN versus other etiology ESRD Pneumonia Pulmonary edema on HD X 3 Oral thrush ( new) Plan Continue Meropenem erythromycin ointment Protonix 40mg bid Lantus 10 unit daily Moderate sliding scale: hold N/S at 100ml/hr: Stop Check and replace electrolytes Repeat labs in the AM GI following Nephrology following Cardiology: No intervention at this time Heparin 5000 unit q12hr Nephrology following On HD Nystatin switch and swallow Stop: Vancomycin and Cefepime DVT prophylaxis : No Heparin as patient was bleeding on admission Diet: renal Code status: Full Goal of care discussed for 20 minutes; full code Case and plan reviewed with Dr. Pickett Plan discussed with: Patient, Spouse, Other (RN) My Orders My Orders Orders - JEANETTE BEDOYA RESIDENT Procedure Category Date Status Time Nystatin PHA 11/03/24 In Process (Mouth-Throat) 18:00 Insulin R (Human) PHA 11/04/24 In Process (Insulin R) 12:15 * Soft Sugar Operator Head CONS 11/04/24 Transmitted Consult Dietary Evaluation Review Comments: Recommend liberalize diet to a Renal Standard diet once pt has a routine dialysis treatments scheduled. Expected Outcomes/Goals: less uremic symptoms, improved appetite and improvedd lab values. CC Plasma Assessment Blood Product Administration S: [id number] Addendum Addendum Addendum I was physically present for the costa portions of the service provided to patient by THE RESIDENT. I have reviewed the documentation, discussed the case with resident and agree with the resident's documentation except as noted. Also the patient's clinical case was discussed with the patient's nurse. This medical document was created using an electronic medical record system with computerized dictation system. Although this document has been carefully reviewed, there might still be some phonetic and typographical errors. These areas are purely typographical due to imperfections of the software programs, and do not reflect any compromise in the patient's medical care. Late signature. Date of Service: Nov 04, 2024 Billing Provider: TRISTEN PICKETT MD Common Visit Codes: 27001-[id number] INP/OBS CARE(HIGH) Secondary Visit Codes: [id number] CARE PLAN 30 MINUTES (20 minutes) JEANETTE BEDOYA RESIDENT Nov 04, 2024 16:10 TRISTEN PICKETT MD Nov 05, 2024 19:11
[2024-11-04] MEDS: EPOETIN ALFA-EPBX 10,000 UNIT/1ML VIAL SC ONE (21:13)
[2024-11-05] VITALS (12 sets, daily range): BP systolic 95–135; BP diastolic 46–71; PULSE 69–89; RESP 16–20; TEMP 99–99.8; O2SAT 93–99
[2024-11-05 05:59] LABS: Calcium 8.8 mg/dL (8.7-10.4); Chloride 98 mmol/L (98-107)
[2024-11-05 06:00] LABS: Anion Gap 9 (5-15); Carbon Dioxide 29 mmol/L (20-31)
[2024-11-05 06:05] LABS: BUN/Creatinine Ratio 4.3 (10.0-20.0); Blood Urea Nitrogen 15 mg/dL (9-23)
[2024-11-05 06:10] LABS: Glucose 113 mg/dL (74-106); Sodium 136 mmol/L (136-145)
[2024-11-05] MEDS: MEROPENEM 500MG IVPB 50 ML IV SCH (08:00)
--- NOTE | 2024-11-05 10:39 | DVHPN2 ---
Subjective The patient did not share any complaints; running low-grade fever Reviewed: Care Plan, H&P, Labs, Medications, Previous Orders, Radiology, Other (Consultations) Changes from previous H/P or p: Changes Eyes: Redness Objective Vitals Vital Signs Date Time Temp Pulse Resp B/P (MAP) Pulse Ox O2 Delivery O2 Flow Rate FiO2 11/05/24 09:00 99.4 87 16 111/62 (78) 99 99.4 11/05/24 07:18 Nasal Cannula* 2 28 Intake/Output Intake and Output 11/05/24 07:00 Intake Total 120 ml Balance 120 ml Intake Oral 120 ml General Appearance: Alert, Oriented X3, Cooperative, No acute distress HEENT: Atraumatic Neck: Supple Lungs: Clear to auscultation, Normal air movement Chest/Breasts: Other (Dialysis catheter in place) Cardiovascular: Regular rate, Normal S1, Normal S2, No murmurs, Gallops, Rubs Abdomen: Normal bowel sounds, Soft, No tenderness Neuro: Normal speech, Cranial nerves 3-12 NL Psych/Mental Status: Mental status NL, Mood NL Medications Current Medications Medications Dose Ordered Sig/Ray Route Start Time Stop Time Status Last Admin Dose Admin Sodium Chloride 10 ml Q8HR IV 10/27/24 06:00 11/05/24 06:16 10 ML Acetaminophen/ Hydrocodone Bitart 1 tab Q4HP PRN PO 10/27/24 01:00 10/30/24 23:31 1 TAB Ondansetron HCl 4 mg Q4HP PRN IV 10/27/24 01:00 Docusate Sodium 100 mg BIDPRN PRN PO 10/27/24 01:00 Acetaminophen 650 mg Q6HP PRN PO 10/27/24 01:00 11/02/24 20:42 650 MG Nitroglycerin 0.4 mg Q5MINP PRN SL 10/27/24 03:00 Morphine Sulfate 2 mg Q30M PRN IV 10/27/24 03:00 Dextrose 50 ml UD PRN IV 10/27/24 08:30 Pantoprazole Sodium 40 mg BID IV 10/27/24 22:00 11/05/24 07:58 40 MG Insulin Glargine 10 units QAM SC 10/28/24 07:00 11/05/24 06:29 10 UNITS Hydralazine HCl 10 mg Q6HP PRN IV 10/28/24 10:45 11/03/24 05:06 10 MG Nifedipine 30 mg DAILY PO 10/29/24 10:00 10/31/24 15:40 30 MG Erythromycin 1 applic Q4HR OP 10/30/24 02:00 11/05/24 06:18 1 APPLIC Ipratropium [place] 0.5 mg Q2HPRN PRN NEB 10/30/24 08:00 10/31/24 07:08 0.5 MG Albuterol 2.5 mg Q2HPRN PRN NEB 10/30/24 08:00 10/31/24 07:08 2.5 MG Sevelamer HCl 1,600 mg TIDWM PO 10/30/24 18:00 11/05/24 07:58 1,600 MG Albumin Human 100 ml @ 100 mls/hr PRN PRN IV 11/01/24 11:30 11/02/24 11:03 100 MLS/HR Diagnostic Test (Pha) 1 strip ACHS 11/02/24 13:45 11/05/24 06:30 1 STRIP Sucralfate 1 gm QID@0600,1130,1700,2200 PO 11/03/24 17:00 11/05/24 06:16 1 GM Nystatin 5 ml QID MT 11/03/24 18:00 11/05/24 06:16 5 ML Insulin Human Regular ACHS SC 11/04/24 12:15 11/04/24 13:20 3 UNITS Meropenem 50 ml @ 17 mls/hr Q24H IV 11/05/24 08:00 11/05/24 08:00 17 MLS/HR Laboratory Results Laboratory Tests 11/04/24 05:48 11/05/24 05:15 Chemistry Test 11/05/24 05:15 Calcium Level 8.8 mg/dL (8.7-10.4) Urinalysis Test 10/26/24 20:23 Urine Color Light-yellow (Yellow) Urine Clarity Turbid (Clear) H Urine pH 6.0 (5.0-9.0) Urine Specific [place] 1.016 (1.001-1.035) Urine Protein 3+ (Negative) H Urine Ketones Negative (Negative) Urine Blood 1+ /uL (Negative) H Urine Nitrite Negative (Negative) Urine Bilirubin Negative (Negative) Urine Urobilinogen Normal mg/dL (Negative) Urine Leukocyte Esterase Trace /uL (Negative) Urine RBC 5 /hpf (0 - 4) Urine WBC 54 /hpf (0 - 5) Urine Squamous Epithelial Cells Few /hpf (<5) Urine Amorphous Crystals Few /hpf (None Seen) Urine Bacteria Few /hpf (None Seen) H Urine Glucose 3+ mg/dL (Normal) H Microbiology Microbiology Date/Time Source Procedure Growth Status 10/27/24 12:00 Urine - [place] Urine Culture - Final Complete 10/26/24 20:00 Blood Blood Culture - Final NO GROWTH AFTER 5 DAYS OF INCUBATION. Complete Labs and/or images reviewed: Labs reviewed by me, Image(s) reviewed by me Assessment/Plan Assessment/Plan Covering Dr. Clark: #Severe sepsis leukocytosis and fever due to UTI/preseptal and facial cellulitis; running low-grade fever #Metabolic acidosis due to end-stage renal disease #Hyperkalemia in the setting of end-stage renal disease #Severe blood loss enema status post transfusion of 4 units of packed RBCs; hemoglobin slightly decreasing #GI bleed due to gastroenteritis the setting of gastric ulcer; status post EGD #Diabetes mellitus type 2 with A1c of 6% Ordered a new set of blood cultures; peripherally and from the dialysis catheter Reviewed available cultures Continue IV meropenem Nephrology is following Hemodialysis as per Nephrology Wastewater Analyst Lab Analyst is working to get the patient hemodialysis chair as outpatient Continue IV pantoprazole twice a day GI is following Continue Lantus with insulin sliding scale and hypoglycemia protocol Continue monitoring Late Entry. This medical document was created using an electronic medical record system with computerized dictation system. Although this document has been carefully reviewed, there might still be some phonetic and typographical errors. These areas are purely typographical due to imperfections of the software programs, and do not reflect any compromise in the patient's medical care. Plan discussed with: Patient, Other My Orders Orders - TRISTEN PICKETT MD Procedure Category Date Status Time Renal DIET 11/05/24 Transmitted Standard(2gna,3gk,Lopho) Lunch Date of Service: Nov 05, 2024 Billing Provider: TRISTEN PICKETT MD Common Visit Codes: [id number] INP/OBS CARE(HIGH) TRISTEN PICKETT MD Nov 05, 2024 10:39
--- NOTE | 2024-11-05 11:24 | DVHPN2 ---
Progress Note Date Seen: Nov 05, 2024 Has the PT tested + for MRSA If YES, has PT been informed?: No Medical Necessity Reason Pt with a Central, PICC or Fol: Yes The following are medically ne: Pablo Catheter Subjective Patient reports: No new complaints Other Systems: Patient seen and examined by myself today in follow-up Objective vital signs Vital Sign Date Time Temp Pulse Resp B/P (MAP) Pulse Ox O2 Delivery O2 Flow Rate FiO2 11/05/24 09:00 99.4 87 16 111/62 (78) 99 99.4 11/05/24 07:18 Nasal Cannula* 2 28 Total Intake and Output 11/04/24 11/04/24 11/05/24 15:00 23:00 07:00 Intake Total 120 ml Balance 120 ml medications Current Medications Medications Dose Ordered Sig/Ray Route Start Time Stop Time Status Last Admin Dose Admin Sodium Chloride 10 ml Q8HR IV 10/27/24 06:00 11/05/24 06:16 10 ML Acetaminophen/ Hydrocodone Bitart 1 tab Q4HP PRN PO 10/27/24 01:00 10/30/24 23:31 1 TAB Ondansetron HCl 4 mg Q4HP PRN IV 10/27/24 01:00 Docusate Sodium 100 mg BIDPRN PRN PO 10/27/24 01:00 Acetaminophen 650 mg Q6HP PRN PO 10/27/24 01:00 11/02/24 20:42 650 MG Nitroglycerin 0.4 mg Q5MINP PRN SL 10/27/24 03:00 Morphine Sulfate 2 mg Q30M PRN IV 10/27/24 03:00 Dextrose 50 ml UD PRN IV 10/27/24 08:30 Pantoprazole Sodium 40 mg BID IV 10/27/24 22:00 11/05/24 07:58 40 MG Insulin Glargine 10 units QAM SC 10/28/24 07:00 11/05/24 06:29 10 UNITS Hydralazine HCl 10 mg Q6HP PRN IV 10/28/24 10:45 11/03/24 05:06 10 MG Nifedipine 30 mg DAILY PO 10/29/24 10:00 10/31/24 15:40 30 MG Erythromycin 1 applic Q4HR OP 10/30/24 02:00 11/05/24 06:18 1 APPLIC Ipratropium [place] 0.5 mg Q2HPRN PRN NEB 10/30/24 08:00 10/31/24 07:08 0.5 MG Albuterol 2.5 mg Q2HPRN PRN NEB 10/30/24 08:00 10/31/24 07:08 2.5 MG Sevelamer HCl 1,600 mg TIDWM PO 10/30/24 18:00 11/05/24 07:58 1,600 MG Albumin Human 100 ml @ 100 mls/hr PRN PRN IV 11/01/24 11:30 11/02/24 11:03 100 MLS/HR Diagnostic Test (Pha) 1 strip ACHS 11/02/24 13:45 11/05/24 06:30 1 STRIP Sucralfate 1 gm QID@0600,1130,1700,2200 PO 11/03/24 17:00 11/05/24 06:16 1 GM Nystatin 5 ml QID MT 11/03/24 18:00 11/05/24 06:16 5 ML Insulin Human Regular ACHS SC 11/04/24 12:15 11/04/24 13:20 3 UNITS Meropenem 50 ml @ 17 mls/hr Q24H IV 11/05/24 08:00 11/05/24 08:00 17 MLS/HR Examination: LUNGS:Normal, CVS:Normal, MSK:Normal laboratory and microbiology Laboratory Tests 11/05/24 05:15 11/04/24 05:48 Test 11/05/24 05:15 Range/Units Serum Glucose 113 H 74-106 mg/dL Microbiology Date/Time Source Procedure Growth Status 10/27/24 12:00 Urine - [place] Urine Culture - Final Complete 10/26/24 20:00 Blood Blood Culture - Final NO GROWTH AFTER 5 DAYS OF INCUBATION. Complete Problem List/Assessment/Plan Problem List/Assessment/Plan Chronic kidney disease stage 5 now end-stage renal disease requiring hemodialysis 3 times weekly Chronic kidney disease stage 4 followed in my clinic Acute respiratory failure, status post BiPAP Congestive heart failure, ejection fraction 35% Pulmonary edema Hyperkalemia Metabolic acidosis Right ophthalmitis/periorbital cellulitis Anemia with black stool Hemoglobin is stable Hyperphosphatemia Recommendations Next hemodialysis 11/07 Epogen 15817 IV post hemodialysis Social service for outpatient hemodialysis chair time IV antibiotics Renvela 1600 mg p.o. t.i.d. with meals Eyedrops GI consult Renal diet We will continue to follow I discussed my plan of care with the patient and her at the bedside Plan discussed with: Patient, Spouse My Orders My Orders Orders - DIETER GUZMAN MD Procedure Category Date Status Time Hemodialysis Orders ORDERS 11/04/24 Transmitted 11:41 Dietary Evaluation Review Comments: Recommend liberalize diet to a Renal Standard diet once pt has a routine dialysis treatments scheduled. Expected Outcomes/Goals: less uremic symptoms, improved appetite and improvedd lab values. CC Plasma Assessment Blood Product Administration S: [id number] DIETER GUZMAN MD Nov 05, 2024 11:23
[2024-11-05] MEDS ORDERED: ACETAMINOPHEN 325 MG TAB PO PRN (16:15)
--- NOTE | 2024-11-05 21:32 | DVHPN2 ---
Progress Note - Dictate Date Seen: Nov 05, 2024 Has the PT tested + for MRSA If YES, has PT been informed?: No Medical Necessity Reason Pt with a Central, PICC or Fol: Yes The following are medically ne: Pablo Catheter Subjective Patient is clinically improving Respiratory status is improved There was no active GI bleeding Endoscopy showed a gastric ulcer and gastroduodenitis and stool was Hemoccult positive vital signs Vital Sign Date Time Temp Pulse Resp B/P (MAP) Pulse Ox O2 Delivery O2 Flow Rate FiO2 11/05/24 18:10 96 Room Air 11/05/24 18:10 0 21 11/05/24 17:00 99.4 88 17 110/62 (78) 99.4 Total Intake and Output 11/04/24 11/04/24 11/05/24 15:00 23:00 07:00 Intake Total 120 ml Balance 120 ml medications Current Medications Medications Dose Ordered Sig/Ray Route Start Time Stop Time Status Last Admin Dose Admin Sodium Chloride 10 ml Q8HR IV 10/27/24 06:00 11/05/24 14:00 10 ML Acetaminophen/ Hydrocodone Bitart 1 tab Q4HP PRN PO 10/27/24 01:00 10/30/24 23:31 1 TAB Ondansetron HCl 4 mg Q4HP PRN IV 10/27/24 01:00 Docusate Sodium 100 mg BIDPRN PRN PO 10/27/24 01:00 Nitroglycerin 0.4 mg Q5MINP PRN SL 10/27/24 03:00 Morphine Sulfate 2 mg Q30M PRN IV 10/27/24 03:00 Dextrose 50 ml UD PRN IV 10/27/24 08:30 Pantoprazole Sodium 40 mg BID IV 10/27/24 22:00 11/05/24 07:58 40 MG Insulin Glargine 10 units QAM SC 10/28/24 07:00 11/05/24 06:29 10 UNITS Hydralazine HCl 10 mg Q6HP PRN IV 10/28/24 10:45 11/03/24 05:06 10 MG Nifedipine 30 mg DAILY PO 10/29/24 10:00 11/05/24 11:39 30 MG Erythromycin 1 applic Q4HR OP 10/30/24 02:00 11/05/24 17:31 1 APPLIC Ipratropium [place] 0.5 mg Q2HPRN PRN NEB 10/30/24 08:00 10/31/24 07:08 0.5 MG Albuterol 2.5 mg Q2HPRN PRN NEB 10/30/24 08:00 10/31/24 07:08 2.5 MG Sevelamer HCl 1,600 mg TIDWM PO 10/30/24 18:00 11/05/24 17:30 1,600 MG Albumin Human 100 ml @ 100 mls/hr PRN PRN IV 11/01/24 11:30 11/02/24 11:03 100 MLS/HR Diagnostic Test (Pha) 1 strip ACHS 11/02/24 13:45 11/05/24 17:01 1 STRIP Sucralfate 1 gm QID@0600,1130,1700,2200 PO 11/03/24 17:00 11/05/24 17:30 1 GM Nystatin 5 ml QID MT 11/03/24 18:00 11/05/24 17:30 5 ML Insulin Human Regular ACHS SC 11/04/24 12:15 11/05/24 17:32 3 UNITS Meropenem 50 ml @ 17 mls/hr Q24H IV 11/05/24 08:00 11/05/24 08:00 17 MLS/HR Acetaminophen 650 mg Q6HP PRN PO 11/05/24 16:15 objective General Appearance: Alert, Oriented X3, Cooperative, high-flow oxygen Head: Right eye hordeolum with swelling pus discharge and eyelid was matted, left eye is normal Lungs: Clear to auscultation, Normal air movement Cardiovascular: Regular rate, Normal S1, Normal S2, No murmurs, no chest wall tenderness Abdominal: NO distention, no tenderness, bowel sounds present, no scars noted Extremities: No clubbing, No cyanosis, No edema, Normal pulses, No tenderness/swelling Skin: No rashes, No breakdown, No significant lesion Neuro: Normal gait, Normal speech, Strength at 5/5 X4 ext, Normal tone, Psych/Mental Status: Mental status NL, Mood NL laboratory and microbiology Laboratory Tests 11/05/24 05:15 11/04/24 05:48 Test 11/05/24 05:15 Range/Units Serum Glucose 113 H 74-106 mg/dL Problems(with codes): (1) Gastroduodenitis (2) Gastric ulcer (3) N&V (nausea and vomiting) (4) Metabolic acidosis (5) Severe anemia (6) Leukocytosis, unspecified (7) Hyperglycemia (8) Facial cellulitis (9) Orbital cellulitis (10) Acute renal failure (11) Hyperkalemia Prognosis Plan Advance diet as tolerated Protonix 40 mg p.o. twice a day Carafate 1 g 4 times a day On IV antibiotics Avoid aspirin NSAIDs smoking alcohol Continue dialysis as per schedule I will follow up patient with you Dietary Evaluation Review Comments: Recommend liberalize diet to a Renal Standard diet once pt has a routine dialysis treatments scheduled. Expected Outcomes/Goals: less uremic symptoms, improved appetite and improvedd lab values. Plan discussed with: Other (Dr byrnes) CC Plasma Assessment Blood Product Administration S: [id number] MILTON GRANDE MD Nov 05, 2024 21:32
[2024-11-06] VITALS (11 sets, daily range): BP systolic 112–138; BP diastolic 54–79; PULSE 79–128; RESP 17–18; TEMP 98–99; O2SAT 93–98
[2024-11-06 07:24] LABS: Hematocrit 30.9 % (36.0-46.0); Mean Corpuscular Hemoglobin 28.6 pg (28.0-32.0); Mean Corpuscular Hgb Conc. 32.5 g/dL (32.0-36.0); Mean Corpuscular Volume 88.1 fL (80.0-100.0); Platelet Count (auto) 195 10^3/uL (140-450); Red Blood Cells 3.51 10^6/uL (4.0-5.20); Red Cell Distribution Width 14.3 % (11.8-14.3); White Blood Cell 12.4 10^3/uL (4.4-10.8)
[2024-11-06 07:30] LABS: Basophils % (manual) 0 (0.0-2.0); Blast Cells 0; Metamyelocytes % 0; Myelocytes % 0; Promyelocytes % 0; Reactive Lymphocytes 0
[2024-11-06 07:36] LABS: Alkaline Phosphatase 67 U/L (46-116); Anion Gap 8 (5-15); Aspartate Aminotransferase 17 U/L (13-40); BUN/Creatinine Ratio 4.4 (10.0-20.0); Blood Urea Nitrogen 23 mg/dL (9-23); Calcium 8.8 mg/dL (8.7-10.4); Carbon Dioxide 29 mmol/L (20-31); Potassium 3.7 mmol/L (3.5-5.1)
[2024-11-06 07:37] LABS: Albumin 3.5 g/dL (3.2-4.8)
[2024-11-06 07:38] LABS: Bilirubin, Total 0.4 mg/dL (0.2-1.0); Total Protein 6.5 g/dL (5.7-8.2)
[2024-11-06 07:44] LABS: Alanine Aminotransferase 9 U/L (7-40); Chloride 98 mmol/L (98-107); Glucose 136 mg/dL (74-106); Sodium 135 mmol/L (136-145)
[2024-11-06 08:24] LABS: Band Neutrophils % (manual) 3; Eosinophils % (manual) 2 (0-7); Lymphocytes % (manual) 16 (10.0-50.0); Monocytes % (manual) 13 (0-12); Platelet Estimate Adequate; RBC Morphology Normal
--- NOTE | 2024-11-06 11:06 | DVHPN2 ---
Progress Note Date Seen: Nov 06, 2024 Has the PT tested + for MRSA If YES, has PT been informed?: No Medical Necessity Reason Pt with a Central, PICC or Fol: Yes The following are medically ne: Pablo Catheter Objective vital signs Vital Sign Date Time Temp Pulse Resp B/P (MAP) Pulse Ox O2 Delivery O2 Flow Rate FiO2 11/06/24 09:27 121/66 11/06/24 09:00 99.0 80 17 96 99.0 11/06/24 07:15 Room Air 0.0 11/06/24 07:15 21 Total Intake and Output 11/05/24 11/05/24 11/06/24 15:00 23:00 07:00 Intake Total 50 ml 600 ml 200 ml Output Total 50 ml Balance 50 ml 550 ml 200 ml medications Current Medications Medications Dose Ordered Sig/Ray Route Start Time Stop Time Status Last Admin Dose Admin Sodium Chloride 10 ml Q8HR IV 10/27/24 06:00 11/06/24 06:21 10 ML Acetaminophen/ Hydrocodone Bitart 1 tab Q4HP PRN PO 10/27/24 01:00 10/30/24 23:31 1 TAB Ondansetron HCl 4 mg Q4HP PRN IV 10/27/24 01:00 Docusate Sodium 100 mg BIDPRN PRN PO 10/27/24 01:00 Nitroglycerin 0.4 mg Q5MINP PRN SL 10/27/24 03:00 Morphine Sulfate 2 mg Q30M PRN IV 10/27/24 03:00 Dextrose 50 ml UD PRN IV 10/27/24 08:30 Pantoprazole Sodium 40 mg BID IV 10/27/24 22:00 11/06/24 09:27 40 MG Insulin Glargine 10 units QAM SC 10/28/24 07:00 11/06/24 06:36 10 UNITS Hydralazine HCl 10 mg Q6HP PRN IV 10/28/24 10:45 11/03/24 05:06 10 MG Nifedipine 30 mg DAILY PO 10/29/24 10:00 11/06/24 09:27 30 MG Erythromycin 1 applic Q4HR OP 10/30/24 02:00 11/06/24 09:29 1 APPLIC Ipratropium [place] 0.5 mg Q2HPRN PRN NEB 10/30/24 08:00 10/31/24 07:08 0.5 MG Albuterol 2.5 mg Q2HPRN PRN NEB 10/30/24 08:00 10/31/24 07:08 2.5 MG Sevelamer HCl 1,600 mg TIDWM PO 10/30/24 18:00 11/06/24 09:26 1,600 MG Albumin Human 100 ml @ 100 mls/hr PRN PRN IV 11/01/24 11:30 11/02/24 11:03 100 MLS/HR Diagnostic Test (Pha) 1 strip ACHS 11/02/24 13:45 11/06/24 06:36 1 STRIP Sucralfate 1 gm QID@0600,1130,1700,2200 PO 11/03/24 17:00 11/06/24 06:22 1 GM Nystatin 5 ml QID MT 11/03/24 18:00 11/06/24 06:22 5 ML Insulin Human Regular ACHS SC 11/04/24 12:15 11/05/24 21:49 3 UNITS Meropenem 50 ml @ 17 mls/hr Q24H IV 11/05/24 08:00 11/06/24 09:36 17 MLS/HR Acetaminophen 650 mg Q6HP PRN PO 11/05/24 16:15 Examination: GENERAL:Abnormal, LUNGS:Abnormal, ABDOMEN:Abnormal laboratory and microbiology Laboratory Tests 11/06/24 06:47 Test 11/06/24 06:47 Range/Units Serum Glucose 136 H 74-106 mg/dL Microbiology Date/Time Source Procedure Growth Status 10/27/24 12:00 Urine - [place] Urine Culture - Final Complete 10/26/24 20:00 Blood Blood Culture - Final NO GROWTH AFTER 5 DAYS OF INCUBATION. Complete Problem List/Assessment/Plan Problem List/Assessment/Plan Chronic kidney disease stage 5 now end-stage renal disease requiring hemodialysis 3 times weekly Chronic kidney disease stage 4 followed in my clinic Acute respiratory failure, status post BiPAP Congestive heart failure, ejection fraction 35% Pulmonary edema Hyperkalemia Metabolic acidosis Right ophthalmitis/periorbital cellulitis Anemia with black stool Hemoglobin is stable Hyperphosphatemia Next hemodialysis 11/07 Epogen 74306 IV post hemodialysis Social service for outpatient hemodialysis chair time IV antibiotics Renvela 1600 mg p.o. t.i.d. with meals Eyedrops GI consult Renal diet Plan discussed with: Patient Dietary Evaluation Review Comments: Recommend liberalize diet to a Renal Standard diet once pt has a routine dialysis treatments scheduled. Expected Outcomes/Goals: less uremic symptoms, improved appetite and improvedd lab values. CC Plasma Assessment Blood Product Administration S: [id number] IRAM GALINDO MD Nov 06, 2024 11:06
--- NOTE | 2024-11-06 15:13 | ECG ---
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
[2024-11-06] MEDS ORDERED: PANT40TA2 PO (15:27)
[2024-11-06] MEDS ORDERED: NYS5LQ MT (15:27)
[2024-11-06] MEDS ORDERED: AUG875T PO (15:27)
--- NOTE | 2024-11-06 16:35 | DVHDSRES ---
Discharge Summary Date of Admission Resident Creating Document: JEANETTE BEDOYA Oct 27, 2024 at 02:54 Date of Discharge: Nov 06, 2024 Admitting Diagnosis preseptal cellulitis Labs/Diagnostic Data: PATIENT: NARCISA LINN ACCT: [id number] UNIT: [id number] : 1970 LOC: CATH ICU ROOM / BED: [place] [address] AGE / SEX: 54 / F ADM STATUS: ADM IN SERVICE 0929 ORDERING PHYSICIAN: LIBAN OCHOA MD PROCEDURE(s): CXR1 - CHEST XRAY 1 VIEW REASON: pulmonary edema ORDER NUMBER(s): [id number], ACCESSION NUMBER(s): [id number] XY CHEST XRAY 1 VIEW, HISTORY: pulmonary edema COMPARISON: XY CHEST XRAY 1 VIEW on DOS: 10/29/24 XY CHEST XRAY 1 VIEW on DOS: 10/29/24 TECHNICAL DATA: 1 view of the chest was obtained. FINDINGS: Lines and tubes: None Cardiomediastinal silhouette: normal Pulmonary vasculature: normal Lung expansion: normal Lung airspace: Worsened airspace disease. Lung interstitium: normal Pleura: normal Pneumothorax: no Bones: Unremarkable Other: no IMPRESSION: Worsened airspace disease can be seen with pulmonary edema. ATED BY: ED COSME MD DICTATED DATE/TIME: 11/01/24 1020 PATIENT: NARCISA LINN ACCT: [id number] UNIT: [id number] : 1970 LOC: [facility] ROOM / BED: [address] [place] [address] AGE / SEX: 54 / F ADM STATUS: ADM IN SERVICE 1301 ORDERING PHYSICIAN: JEANETTE BEDOYA PROCEDURE(s): INVENCAT - Insertion of Venous Cath REASON: HD CATH ORDER NUMBER(s): [id number], ACCESSION NUMBER(s): [id number] PROCEDURE: TUNNELED CENTRAL VENOUS CATHETER PLACEMENT USING FLUOROSCOPY AND ULTRASOUND HISTORY: HD CATH DOCUMENTATION: Informed consent was obtained and a procedural time out was performed. SEDATION: Moderate sedation was utilized during the procedure. The patient received benzodiazepines and opioids, the dosing of which was documented in the patient s permanent medical record. Pre-sedation history and evaluation revealed no contraindications to sedation. The patient s level of consciousness and physiologic status was monitored continuously by the physician and nursing staff throughout the procedure. Total intra-service moderate sedation time was 30 minutes. FLUORO: 1 minutes, DAP: 1 mGy, TECHNIQUE: The skin over the RIGHT internal jugular vein and chest was sterilely prepped, draped and anesthetized with 1% lidocaine with epinephrine. The vein was accessed with a 21-gauge needle under ultrasound guidance with an image archived in the PACS. A guidewire was then passed into the central veins under fluoroscopy. The subcutaneous tunnel was anesthetized with 1% lidocaine and the catheter was tunneled to the venous entry site, cut to the appropriate length, and inserted through a peel away sheath. A final radiograph was obtained, the catheter was flushed and secured in place, and sterile dressings were applied. Procedural physician complied with all CLIP criteria, including preprocedural hand hygiene and use of maximum sterile barriers including hat, gown, sterile gloves, mask, and head to toe drape. The neck and chest were prepped with chlorhexidine solution and draped in the usual sterile fashion. The prep solution was allowed to dry prior to puncture. FINDINGS: Ultrasound demonstrates a patent RIGHT internal jugular vein. The tip of the catheter was placed near the cavoatrial junction. No complications are identified. IMPRESSION: SUCCESSFUL 14.5 x 23cm CAMEROONIAN DUAL-LUMEN POWER INJECTABLE TUNNELED CENTRAL VENOUS CATHETER PLACEMENT. THE CATHETER IS READY FOR IMMEDIATE USE. ATED BY: EBONIE ZUNIGA MD DICTATED DATE/TIME: 10/31/24 1329 PATIENT: NARCISA LINN ACCT: [id number] UNIT: [id number] : 1970 LOC: [facility] ROOM / BED: [address] [place] [address] AGE / SEX: 54 / F ADM STATUS: ADM IN SERVICE 0718 ORDERING PHYSICIAN: ED COSME MD PROCEDURE(s): USGUIVASAC - US Guided Vascular Access REASON: TD CATHETER ORDER NUMBER(s): [id number], ACCESSION NUMBER(s): [id number] PROCEDURE: TUNNELED CENTRAL VENOUS CATHETER PLACEMENT USING FLUOROSCOPY AND ULTRASOUND HISTORY: HD CATH DOCUMENTATION: Informed consent was obtained and a procedural time out was performed. SEDATION: Moderate sedation was utilized during the procedure. The patient received benzodiazepines and opioids, the dosing of which was documented in the patient s permanent medical record. Pre-sedation history and evaluation revealed no contraindications to sedation. The patient s level of consciousness and physiologic status was monitored continuously by the physician and nursing staff throughout the procedure. Total intra-service moderate sedation time was 30 minutes. FLUORO: 1 minutes, DAP: 1 mGy, TECHNIQUE: The skin over the RIGHT internal jugular vein and chest was sterilely prepped, draped and anesthetized with 1% lidocaine with epinephrine. The vein was accessed with a 21-gauge needle under ultrasound guidance with an image archived in the PACS. A guidewire was then passed into the central veins under fluoroscopy. The subcutaneous tunnel was anesthetized with 1% lidocaine and the catheter was tunneled to the venous entry site, cut to the appropriate length, and inserted through a peel away sheath. A final radiograph was obtained, the catheter was flushed and secured in place, and sterile dressings were applied. Procedural physician complied with all CLIP criteria, including preprocedural hand hygiene and use of maximum sterile barriers including hat, gown, sterile gloves, mask, and head to toe drape. The neck and chest were prepped with chlorhexidine solution and draped in the usual sterile fashion. The prep solution was allowed to dry prior to puncture. FINDINGS: Ultrasound demonstrates a patent RIGHT internal jugular vein. The tip of the catheter was placed near the cavoatrial junction. No complications are identified. IMPRESSION: SUCCESSFUL 14.5 x 23cm CAMEROONIAN DUAL-LUMEN POWER INJECTABLE TUNNELED CENTRAL VENOUS CATHETER PLACEMENT. THE CATHETER IS READY FOR IMMEDIATE USE. ATED BY: EBONIE ZUNIGA MD DICTATED DATE/TIME: 10/31/24 1329 PATIENT: NARCISA LINN ACCT: [id number] UNIT: [id number] : 1970 LOC: [facility] ROOM / BED: [facility] / B AGE / SEX: 54 / F ADM STATUS: ADM IN SERVICE 1620 ORDERING PHYSICIAN: JEANETTE BEDOYA RESIDENT PROCEDURE(s): CXR1 - CHEST XRAY 1 VIEW REASON: low oxygen saturation ORDER NUMBER(s): [id number], ACCESSION NUMBER(s): [id number] CHEST RADIOGRAPH Indication: low oxygen saturation Technique: Single frontal view of the chest was obtained COMPARISON: None FINDINGS: Lines and Tubes: None Lungs: Multifocal airspace disease. Pleura: No effusion. No pneumothorax. Cardiomediastinal contours: Cardiomegaly Bones: Unremarkable IMPRESSION: Multifocal airspace disease. ATED BY: SAGE WANG MD DICTATED DATE/TIME: 10/29/24 1702 PATIENT: NARCISA LINN ACCT: [id number] UNIT: [id number] : 1970 [facility] AGE / SEX: 54 / F ADM STATUS: ADM IN SERVICE 1032 ORDERING PHYSICIAN: RICKEY ARREDONDO PROCEDURE(s): LUDVT - LT Upper DVT REASON: Edema ORDER NUMBER(s): [id number], ACCESSION NUMBER(s): [id number] LEFT Upper Extremity Venous Duplex Clinical History: Edema Comparison: None Technique: Duplex doppler evaluation of the venous system of the LEFT lower neck and upper extremity including color doppler and spectral/pulsed waveform analysis was performed. Findings: The internal jugular vein demonstrates appropriate compressibility and waveform variability. The subclavian vein is patent on color Doppler evaluation without intraluminal thrombus and demonstrates waveform variability. The visualized portion of the brachiocephalic vein is patent on color Doppler evaluation without intraluminal thrombus and demonstrates waveform variability. The axillary vein demonstrates appropriate compressibility and waveform variability. The brachial veins demonstrate appropriate compressibility and patency on Doppler evaluation. The basilic vein demonstrates appropriate compressibility and patency on Doppler evaluation. Occlusive thrombus in the left cephalic vein.. Impression: 1. Occlusive thrombus in the left cephalic vein. ATED BY: VERONIKA SILVERIO MD DICTATED DATE/TIME: 10/28/24 1128 PATIENT: NARCISA LINN ACCT: [id number] UNIT: [id number] : 1970 LOC: [facility] [place] AGE / SEX: 54 / F ADM STATUS: ADM IN SERVICE 0825 ORDERING PHYSICIAN: BRYN NGUYỄN MD PROCEDURE(s): KIDUS - KIDNEY REASON: isabella ORDER NUMBER(s): [id number], ACCESSION NUMBER(s): [id number] INDICATION: isabella TECHNIQUE: Multiple real-time sonographic images of the kidneys and bladder were obtained. COMPARISON: None FINDINGS: RIGHT kidney measures 10.7 cm in length. No hydronephrosis, cortical thinning, or suspicious renal masses. The right renal cortex is abnormally increased in echogenicity. LEFT kidney measures 9.3 cm in length. No hydronephrosis, suspicious renal masses, cortical thinning, or abnormal cortical echogenicity. Pablo catheter decompresses the urinary bladder. IMPRESSION: 1. Increased echogenicity of the right renal cortex suggestive of medical renal disease. 2. Normal sonographic appearance of the left kidney. 3. Pablo catheter in the urinary bladder. ATED BY: EBONIE ZUNIGA MD DICTATED DATE/TIME: 10/28/24 0954 PATIENT: NARCISA LINN ACCT: [id number] UNIT: [id number] : 1970 LOC: ER ROOM / BED: / AGE / SEX: 54 / F ADM STATUS: REG ER SERVICE 07 ORDERING PHYSICIAN: TIESHA NEGRON MD PROCEDURE(s): FAC2C - MAXILLOFACIAL WITHOUT REASON: right facial swelling, right eye swelling ORDER NUMBER(s): [id number], ACCESSION NUMBER(s): [id number] EXAM: CT MAXILLOFACIAL WITHOUT CLINICAL HISTORY: right facial swelling, right eye swelling TECHNIQUE: Multiple contiguous axial images were obtained of the facial bones without intravenous contrast. Sagittal and coronal reformations were obtained. This exam was performed according to our departmental dose optimization program. Up-to-date CT equipment and radiation dose reduction techniques are utilized as appropriate. Comparison: None FINDINGS: The globes are symmetric. Prior ocular lens replacements. The extraocular muscles are intact. No intra or extraconal hemorrhage. There is right preseptal soft tissue thickening and stranding. There is subcutaneous soft tissue stranding extending along the anterior and lateral right cheek no well-formed fluid collection to suggest abscess on noncontrast imaging. No soft tissue gas The mastoid air cells and visualized paranasal sinuses are well-aerated. The extraocular muscles are intact. No facial, mandibular, or orbital wall fracture is identified. The temporomandibular joints are maintained. IMPRESSION: 1. Right preseptal cellulitis as well as cellulitis along the anterior lateral right cheek. 2. No soft tissue gas or definite fluid collection on noncontrast imaging. ATED BY: MERE SCHMITT MD DICTATED DATE/TIME: 10/26/24 5859 Laboratory Results Test 11/06/24 06:47 11/06/24 06:22 11/04/24 05:48 11/03/24 05:03 White Blood Count 12.4 10^3/uL (4.4-10.8) Red Blood Count 3.51 10^6/uL (4.0-5.20) Hemoglobin 10.0 g/dL (12.2-16.2) Hematocrit 30.9 % (36.0-46.0) Mean Corpuscular Volume 88.1 fL (80.0-100.0) Mean Corpuscular Hemoglobin 28.6 pg (28.0-32.0) Mean Corpuscular Hemoglobin Concent 32.5 g/dL (32.0-36.0) Red Cell Distribution Width 14.3 % (11.8-14.3) Platelet Count 195 10^3/uL (140-450) Mean Platelet Volume 9.1 fL (6.9-10.8) Neutrophils (%) (Auto) % (37.0-80.0) Lymphocytes (%) (Auto) % (10.0-50.0) Monocytes (%) (Auto) % (0.0-12.0) Basophils (%) (Auto) % (0.0-2.0) Neutrophils # (Auto) 10 ^3/uL (1.6-8.6) Lymphocytes # (Auto) 10 ^3/uL (0.4-5.4) Monocytes # (Auto) 10 ^3/uL (0-1.3) Differential Total Cells Counted 100.0 (100) Neutrophils % (Manual) 66 (37.0-80.0) Band Neutrophils % (Manual) 3 Lymphocytes % (Manual) 16 (10.0-50.0) Monocytes % (Manual) 13 (0-12) Eosinophils % (Manual) 2 (0-7) Basophils % (Manual) 0 (0.0-2.0) Metamyelocytes % (manual) 0 Myelocytes % (Manual) 0 Promyelocytes % (Manual) 0 Blast Cells % (Manual) 0 Reactive Lymphocytes 0 Platelet Estimate Adequate Red Blood Cell Morphology Normal Sodium Level 135 mmol/L (136-145) Potassium Level 3.7 mmol/L (3.5-5.1) Chloride Level 98 mmol/L (98-107) Carbon Dioxide Level 29 mmol/L (20-31) Anion Gap 8 (5-15) Blood Urea Nitrogen 23 mg/dL (9-23) Creatinine 5.22 mg/dL (0.550-1.02) Glomerular Filtration Rate Calc 9 mL/min (>90) BUN/Creatinine Ratio 4.4 (10.0-20.0) Serum Glucose 136 mg/dL (74-106) Calcium Level 8.8 mg/dL (8.7-10.4) Total Bilirubin 0.4 mg/dL (0.2-1.0) Aspartate Amino Transferase (AST) 17 U/L (13-40) Alanine Aminotransferase (ALT) 9 U/L (7-40) Alkaline Phosphatase 67 U/L (46-116) Total Protein 6.5 g/dL (5.7-8.2) Albumin 3.5 g/dL (3.2-4.8) POC Glucose 130 mg/dl (70-106) Eosinophils (%) (Auto) 4.2 % (0.0-7.0) Eosinophils # (Auto) 0.4 10 ^3/uL (0-0.8) Basophils # (Auto) 0 10 ^3/uL (0-0.2) Nucleated Red Blood Cells 0.1 % Prothrombin Time 11.9 sec (9.3-11.8) Prothrombin Time INR 1.14 (0.9-1.15) Activated Partial Thromboplast Time 40.5 SEC (24.5-34.5) Magnesium Level 1.8 mg/dL (1.6-2.6) Test 11/02/24 03:38 11/01/24 10:48 11/01/24 07:57 11/01/24 06:00 Random Vancomycin Level 16.2 ug/mL (5-10) Blood Gas Specimen Type Arterial Blood Gas Sample Site Right radial Blood Gas Patient Temperature 37.0 Arterial Blood Date Drawn [id number] Arterial Blood pH 7.477 (7.350-7.450) Arterial Blood Partial Pressure CO2 33.1 mmHg (32.0-45.0) Arterial Blood Partial Pressure O2 65.2 mmHg (83.0-108.0) Arterial Blood HCO3 23.9 mmol/L (21.0-28.0) Arterial Blood Oxygen Saturation 91.3 % (94.0-98.0) Arterial Blood Base Excess 0.8 mmol/L (-2.0-3.0) Arterial Blood Oxyhemoglobin 90.8 % (94.0-98.0) Arterial Blood Carboxyhemoglobin 0.3 % (0.5-1.5) Arterial Blood Methemoglobin 0.3 % (0.0-1.5) Trace Test Modified Blood Gas Total Hemoglobin 10.50 g/dL (12.0-16.0) Blood Gas Liter Flow 30.00 Blood Gas Modality High flow Blood Gas Spontaneous Rate 20 FiO2 % 70.0 Blood Gas Set Respiration Rate 12.0 Blood Gas Spontaneous Tidal Volume 334 Blood Gas EPAP 8 Blood Gas IPAP 12 Blood Gas Comments I-time 0.9 sec. Stool Occult Blood Positive x 1 (Negative) Stool Occult Blood Sample #3 (Negative) Test 10/30/24 06:21 10/29/24 07:08 10/28/24 08:50 10/27/24 05:00 Phosphorus Level 7.9 mg/dL (2.4-5.1) Ferritin 526.4 ng/mL (10-291) Vitamin D 25-Hydroxy 29.9 ng/mL (30.0-100) Parathyroid Hormone (Intact) 342.3 pg/mL (18.4-80.1) Hepatitis B Surface Antigen Negative (Negative) Hepatitis C Antibody Negative (Negative) Vitamin B12 Level 1038 pg/mL (211-911) Thyroid Stimulating Hormone (TSH) 0.65 uIU/mL (0.55-4.78) Anti-Nuclear Antibody Comment Comment (.) Cytoplasmic ANCA (c-ANCA) Antibody <1:20 titer (Neg:<1:20) Anti-Proteinase 3 (c-ANCA) <0.2 units (0.0-0.9) Atypical p-ANCA <1:20 titer (Neg:<1:20) Perinuclear ANCA (p-ANCA) Antibody <1:20 titer (Neg:<1:20) Myeloperoxidase Antibody <0.2 units (0.0-0.9) EDNA-1 Antibody <0.2 AI (0.0-0.9) SS-A/Ro Antibody <0.2 AI (0.0-0.9) SS-B/La Antibody <0.2 AI (0.0-0.9) Sm Antibody <0.2 AI (0.0-0.9) PHARMACY SERVICES REPRESENTATIVE Antibody <0.2 AI (0.0-0.9) Scl-70 (Scleroderma) Antibody <0.2 AI (0.0-0.9) Anti-Double Strand DNA Antibody <1 IU/mL (0-9) Chromatin Antibody <0.2 AI (0.0-0.9) Centromere B Antibody <0.2 AI (0.0-0.9) Complement C3 119 mg/dL (82-167) Complement C4 30 mg/dL (12-38) Hemoglobin A1c 6.0 % A1C (<5.7) Iron Level 17 ug/dL (50-170) Total Iron Binding Capacity 212 ug/dL (250-425) Percent Iron Saturation 8.0 % (15-50) Test 10/26/24 20:23 10/26/24 20:00 Urine Color Light-yellow (Yellow) Urine Clarity Turbid (Clear) Urine pH 6.0 (5.0-9.0) Urine Specific [place] 1.016 (1.001-1.035) Urine Protein 3+ (Negative) Urine Ketones Negative (Negative) Urine Blood 1+ /uL (Negative) Urine Nitrite Negative (Negative) Urine Bilirubin Negative (Negative) Urine Urobilinogen Normal mg/dL (Negative) Urine Leukocyte Esterase Trace /uL (Negative) Urine RBC 5 /hpf (0 - 4) Urine WBC 54 /hpf (0 - 5) Urine Squamous Epithelial Cells Few /hpf (<5) Urine Amorphous Crystals Few /hpf (None Seen) Urine Bacteria Few /hpf (None Seen) Urine Glucose 3+ mg/dL (Normal) Lactic Acid Level 1.3 mmol/L (0.4-2.0) Other Laboratory Tests 11/06/24 06:47 Brief Hx & Hospital Course: Brief HPI This is a 54-year-old female with a past medical history of diabetes and told she has a kidney disease presented to the [facility] on 10/27/2024 wit the compliant of right eye swelling, redness, and persistent purulent discharges for a proximally 4 days. Per patient, she woke up from bed 4 days ago and noted that her right eye was swollen and discharging fluid. She used xxob-cur-yygzebb topical medications without any improvement. The swelling progressed to the point that she was unable to open right eye. Patient was then advised to come to the ED for evaluation and management. In the ED, patient denied chest pain, no headache, no dizziness, no diaphoresis, no shortness of breath, no nausea, no vomiting, fever, no chills. Initial vital data showed BP:124/68, HR: 92, temp: 97.8 F, O2 saturation 98% on room air. Initial lab work showed WBC 19.9, hemoglobin 5.2, hematocrit 17.5, platelets 370, sodium 136, potassium 6.6, BUN 77, creatinine 9.53, GFR 5, glucose 230, AST 10, ALT 11. Maxillofacial CT revealing right preseptal cellulitis as well as cellulitis along the anterior lateral right cheek. Patient was started on IV antibiotic regimen vancomycin, received 2 units of PRBC. Patient was really ill and managed for Severe sepsis. Brief Hospital course: Patient was given additional 2 unit of PRBC (total 4) raising her hgb to above 9. Nephrology was consulted for the low gfr and GI also for the severe anemia. Patient was also hyperkalemic. Ekg stat showed lateral T-wave inversion thus prompting cardiology consult. Patient was congested and managed with IV bumex without much improvement. Patient became hypoxic and was placed on BIPAP. Patient's dyspnea was related to fluid overload. Patient received tunnel catheter for hemodialysis. She remained in the cath ICU for 2 day due to high oxygen demand. She was in 100 % FIO2. Patient received 4 conservative days of dialysis prior to discharge and her current cr:3.52 and GFR of 15. She also underwent EGD looking for the source of bleeding. Post-op report showed pre- pyloric deep antral gastric ulcer with surrounding hyperemia erythema and gastritis and mucosal edema. This was Norbert classification C with no visible vessel or active bleeding.Mild gastroduodenitis, sliding-type hiatal hernia with slightly irregular squamocolumnar junction and minimal grade a erosive esophagitis. Every day, lab work was done closely monitoring and correcting any electrolytes abnormalities. Patient is stable and her wbc had improved. The preseptal was better and her vision improved. Patient has greatly improved and prior to discharge, patient got a chair time with [facility] WED 11/08/2023. Overall patient is much improved; however she is in state of depression and we recommend a psychiatrist evaluation, but patient refused. Examination General Appearance: Alert, Oriented X3, Cooperative, No acute distress Head: Atraumatic Eye: RIGHT -->Hordeolum, Less swelling, Mild erythema: Improved Left: normal Ear: no discharge noted Nose:no discharge noted Right side chest tunnel dialysis catheter Respiratory: CTAB Chest: Regular rate, Normal S1, Normal S2, No murmurs, no chest wall tenderness Abdominal: NO distention, no tenderness, bowel sounds present, no scars noted Extremities: Left arm: swollen, bluish discoloration: IMPROVED Neuro: Normal gait, Normal speech, Strength at 5/5 X4 ext, Normal tone, Sensation intact, Cranial nerves 3-12 NL, Reflexes 2+ Psych/Mental Status: looks sad, non-communicating Diagnoses Severe Sepsis due to UTI/facial cellulitis UTI Acute hypoxic respiratory failure Pulmonary edema acute on chronic HFrEF Metabolic acidosis Preseptal cellulitis--> improving Facial cellulitis Hyperglycemia Severe enema status post 4 blood transfusion, hb: 9.3 Melena rule out GI bleed Diabetes mellitus type II Hyperkalemia--> RESOLVED Mild hyponatremia Acute kidney injury likely septic ATN versus other etiology ESRD Pneumonia Pulmonary edema Oral thrush ( new) Patient's Plan Augmentin 850 mg b.i.d. 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 Hernandez Consults/Reason for consult Nephrology: low GFR: 4 Gastrointestinal: Anemia hgb: 5.2 Condition at Discharge: Stable Final Diagnosis/Problems List Severe Sepsis due to UTI/cellulitis UTI Acute respiratory failure Pulmonary edema Acute on chronic HFrEF Metabolic acidosis Preseptal cellulitis--> improving Facial cellulitis Hyperglycemia, Hgb: 9.6 Severe enema status post 4 blood transfusion, hb: 9.3 Rule out GI bleed Melena rule out GI bleed Diabetes mellitus type II Hyperkalemia--> RESOLVED Mild hyponatremia Acute kidney injury likely septic ATN versus other etiology ESRD Pneumonia Pulmonary edema on HD X 3 Oral thrush ( new) Discharge Disposition: Home Discharge Statement: "Patient was advised to return to the ER or call 911 if any headaches, dizziness, shortness of breath, chest pain, abdominal pain, bleeding, fevers, or worsening of medical condition. Patient was counseled about treatment plan, medications, possible side effects, patientverbalized understanding. All questions were answered to the best of my ability. This discharge took greater then 30 minutes in planning, reviewing documentation, counseling the patient, and discussing with other team members." ASSESSMENT ASSESSMENT Assessment JEANETTE BEDOYA RESIDENT Nov 06, 2024 16:35
--- NOTE | 2024-11-06 20:57 | DVHPN2 ---
Progress Note - Dictate Date Seen: Nov 06, 2024 (Late entry Patient seen at bedside at 2:30 p.m.) Has the PT tested + for MRSA If YES, has PT been informed?: No Medical Necessity Reason Pt with a Central, PICC or Fol: Yes The following are medically ne: Pablo Catheter Subjective Patient was seen at bedside She is hemodynamically stable and tolerating diet No active GI bleeding Patient was very agitated and demanding a discharge and wanted to go home Patient was notified that she needed to await a chair time for dialysis however she did want to discharge and see an ENT specialist tomorrow vital signs Vital Sign Date Time Temp Pulse Resp B/P (MAP) Pulse Ox O2 Delivery O2 Flow Rate FiO2 11/06/24 17:22 99.0 83 18 97 11/06/24 17:00 129/70 (89) 11/06/24 08:05 Room Air* 0 21 Total Intake and Output 11/05/24 11/05/24 11/06/24 15:00 23:00 07:00 Intake Total 50 ml 600 ml 200 ml Output Total 50 ml Balance 50 ml 550 ml 200 ml objective General Appearance: Alert, Oriented X3, Cooperative, high-flow oxygen Head: Right eye hordeolum with swelling pus discharge and eyelid was matted, left eye is normal Lungs: Clear to auscultation, Normal air movement Cardiovascular: Regular rate, Normal S1, Normal S2, No murmurs, no chest wall tenderness Abdominal: NO distention, no tenderness, bowel sounds present, no scars noted Extremities: No clubbing, No cyanosis, No edema, Normal pulses, No tenderness/swelling Skin: No rashes, No breakdown, No significant lesion Neuro: Normal gait, Normal speech, Strength at 5/5 X4 ext, Normal tone, Psych/Mental Status: Mental status NL, Mood NL laboratory and microbiology Laboratory Tests 11/06/24 06:47 Test 11/06/24 06:47 Range/Units Serum Glucose 136 H 74-106 mg/dL Problems(with codes): (1) Gastroduodenitis (2) Gastric ulcer (3) N&V (nausea and vomiting) (4) Severe anemia (5) Facial cellulitis (6) Orbital cellulitis (7) Acute renal failure (8) Hyperkalemia Prognosis Plan Despite repeated encouragement to stay in the hospital and await a chair time for a dialysis patient was insistent on discharging today I was considering getting a psychiatric evaluation however the requested not to do that as the patient was just upset about not being discharged Luckily the patient was able to get a chair time at [facility] dialysis starting on September 08 This information was provided to the ;Patient was discharged home this evening by Elif fox V Patient needs to stay on Protonix 40 mg p.o. daily and avoid aspirin NSAIDs Dietary Evaluation Review Comments: Recommend liberalize diet to a Renal Standard diet once pt has a routine dialysis treatments scheduled. Expected Outcomes/Goals: less uremic symptoms, improved appetite and improvedd lab values. Plan discussed with: Patient, Spouse, Other (Nurse) CC Plasma Assessment Blood Product Administration S: [id number] MILTON GRANDE MD Nov 06, 2024 20:57
[2024-11-07] MEDS ORDERED: SODIUM CHL 0.9% 1000 ML BAG XX ONE (07:00)
[2024-11-07] MEDS ORDERED: EPOETIN ALFA-EPBX 10,000 UNIT/1ML VIAL SC ONE (21:00)
== END 2024-11-06 18:45 | disposition home or self-care (01) | DRG 871 ==
LOC: ER 19:24 → TELE 10-27 02:54 → TELE-CENTR 10-27 23:23 → CATH ICU 10-31 17:27 → DOU IN ICU 11-02 14:40 → TELE-E-ADS 11-03 11:08
PROVIDERS: ADMIT Internal Medicine; ATTEND Internal Medicine
PROC: 30233N1 Transfusion of Nonautologous Red Blood Cells into Peripheral Vein, Percutaneous Approach (ICD-10-PCS; principal; 2024-10-27)
PROC: 0JH63XZ Insertion of Tunneled Vascular Access Device into Chest Subcutaneous Tissue and Fascia, Percutaneous Approach (ICD-10-PCS; 2024-10-31)
PROC: 02HV33Z Insertion of Infusion Device into Superior Vena Cava, Percutaneous Approach (ICD-10-PCS; 2024-10-31)
PROC: B5181ZA Fluoroscopy of Superior Vena Cava using Low Osmolar Contrast, Guidance (ICD-10-PCS; 2024-10-31)
PROC: B548ZZA Ultrasonography of Superior Vena Cava, Guidance (ICD-10-PCS; 2024-10-31)
PROC: 5A1D70Z Performance of Urinary Filtration, Intermittent, Less than 6 Hours Per Day (ICD-10-PCS; 2024-10-31)
PROC: 5A09357 Assistance with Respiratory Ventilation, Less than 24 Consecutive Hours, Continuous Positive Airway Pressure (ICD-10-PCS; 2024-10-31)
PROC: 5A1D70Z Performance of Urinary Filtration, Intermittent, Less than 6 Hours Per Day (ICD-10-PCS; 2024-11-01)
PROC: 5A09357 Assistance with Respiratory Ventilation, Less than 24 Consecutive Hours, Continuous Positive Airway Pressure (ICD-10-PCS; 2024-11-01)
PROC: 5A0935A Assistance with Respiratory Ventilation, Less than 24 Consecutive Hours, High Flow/Velocity Cannula (ICD-10-PCS; 2024-11-01)
PROC: 5A1D70Z Performance of Urinary Filtration, Intermittent, Less than 6 Hours Per Day (ICD-10-PCS; 2024-11-02)
PROC: 0DB98ZX Excision of Duodenum, Via Natural or Artificial Opening Endoscopic, Diagnostic (ICD-10-PCS; 2024-11-03)
PROC: 0DB68ZX Excision of Stomach, Via Natural or Artificial Opening Endoscopic, Diagnostic (ICD-10-PCS; 2024-11-03)
PROC: 5A1D70Z Performance of Urinary Filtration, Intermittent, Less than 6 Hours Per Day (ICD-10-PCS; 2024-11-04)
DX: A41.9 Sepsis, unspecified organism (principal); I50.23 Acute on chronic systolic (congestive) heart failure; K25.4 Chronic or unspecified gastric ulcer with hemorrhage; N17.0 Acute kidney failure with tubular necrosis; N18.6 End stage renal disease; J18.9 Pneumonia, unspecified organism; L03.213 Periorbital cellulitis; E87.20 Acidosis, unspecified; E87.1 Hypo-osmolality and hyponatremia; N39.0 Urinary tract infection, site not specified; L03.211 Cellulitis of face; K22.10 Ulcer of esophagus without bleeding; I13.2 Hypertensive heart and chronic kidney disease with heart failure and with stage 5 chronic kidney disease, or end stage renal disease; D62 Acute posthemorrhagic anemia; B37.0 Candidal stomatitis; R65.20 Severe sepsis without septic shock; E11.65 Type 2 diabetes mellitus with hyperglycemia; E87.5 Hyperkalemia; I16.0 Hypertensive urgency; K29.90 Gastroduodenitis, unspecified, without bleeding; K44.9 Diaphragmatic hernia without obstruction or gangrene; K29.70 Gastritis, unspecified, without bleeding; E11.22 Type 2 diabetes mellitus with diabetic chronic kidney disease; E83.39 Other disorders of phosphorus metabolism; K52.9 Noninfective gastroenteritis and colitis, unspecified; K21.9 Gastro-esophageal reflux disease without esophagitis; Z79.84 Long term (current) use of oral hypoglycemic drugs; Z83.3 Family history of diabetes mellitus; Z79.4 Long term (current) use of insulin
CPT/HCPCS: 36415; 36600; 70486; 71045; 76775; 76937; 80048; 80053; 80202; 81001; 82270; 82306; 82607; 82728; 82805; 82962; 83036; 83516; 83520; 83540; 83550; 83605; 83735; 83970; 84100; 84132; 84443; 85007; 85014; 85018; 85025; 85027; 85610; 85730; 86160; 86225; 86235; 86256; 86803; 86850; 86900; 86901; 86920; 87040; 87086; 87340; 90935; 93005; 93306; 93971; 94640; 94660; 97116; 97163; 97530; 99152; G0378; J1642; J1815; J2003; J2185; J2250; J2405; J2470; J2704; J3490; P9047

== ENCOUNTER 2024-11-15 13:55 | Emergency (ER) | payer OTHER ==
[~2024-11-15] VITALS: Ht 149.9 cm; Wt 45.9 kg
[~2024-11-15 13:55] MED LIST: AUG875T PO; CHOL20007 PO; INSLISPI SC; INSUINJ37 SC; LISI20TA56 PO; METO25TA93 PO; NYS5LQ MT; PANT40TA2 PO; POM
--- NOTE | 2024-11-15 14:38 | ED.PDOC ---
History of Present Illness HPI Comments 54-year-old female with PMHx ESRD, HTN, DM presents with a chief complaint of request for dialysis catheter removal. Patient states "the doctor said that my condition is end stage and I no longer wish to continue treatment". Patient reports that her controlled atmospheric furnace brazer is Dr. Haynes at [facility]. Patient does not wish to elaborate on her decision to stop treatment. No other symptoms or modifying factors present at this time. Time Seen by MD: 14:32 Reviewed Notes: Nurses Notes, Medications, Allergies Allergies: Coded Allergies: NO KNOWN ALLERGIES (Unverified , 10/26/24) Home Meds Active Scripts Nystatin (Mouth-Throat) (Mycostatin (Mouth-Throat)) 500,000 Units/5 Ml Ss, 5 ML MT QID for 5 Days, #100 ML Prov:JEANETTE BEDOYA RESIDENT 11/06/24 Amoxicillin & Pot Clavulanate (AUGMENTIN TABLET) 875 Mg Tb, 875 MG PO BID for 7 Days, #14 TAB Prov:JEANETTE BEDOYA RESIDENT 11/06/24 Pantoprazole Sodium Sesquihydr (Protonix) 40 Mg Tab, 40 MG PO BID, #30 TAB Prov:JEANETTE BEDOYA RESIDENT 11/06/24 Reported Medications Patients Own Medication (PATIENTS OWN MEDICATION) . PTS OWN MED-OBTAIN FROM PT AND SEND TO RX DRUG: Liver Kidney Supplement FREQ: PRN when paitnent wants to take RX# EXP: DATE DISP: TECH: RP: 10/28/24 Patients Own Medication (PATIENTS OWN MEDICATION) . PTS OWN MED-OBTAIN FROM PT AND SEND TO RX DRUG: Vitamin B3 1000mg FREQ: daily RX# EXP: DATE DISP: TECH: RPH: 10/28/24 Lisinopril (Lisinopril) 20 Mg Tab, 1 TAB PO HS 10/28/24 Patients Own Medication (PATIENTS OWN MEDICATION) . PTS OWN MED-OBTAIN FROM PT AND SEND TO RX DRUG:Bilberry Supplement 120 mg FREQ:once daily RX# EXP: DATE DISP: TECH: RP: 10/28/24 Cholecalciferol (VITAMIN D3) 2,000 Unit Tab, 5000 UNIT PO DAILY 10/28/24 Metoprolol Succinate (Metoprolol Succinate Er) 25 Mg Tab, 25 MG PO DAILY 10/28/24 Insulin Glargine (Lantus Solostar) 100 Unit/Ml Inj, 20 UNIT SC DAILY, INJ 10/28/24 Insulin Lispro (Human) (Humalog) 100 Unit/Ml Inj, 8 UNIT SC AC, INJ 10/28/24 Information Source: Patient, Spouse Mode of Arrival: Ambulatory Severity: Moderate Timing: Days Duration: Since onset Prehospital treatment: None Past Medical History PAST MEDICAL HISTORY: DM, ESRD, HTN Surgical History: Hysterectomy REIKI PRACTITIONER History: Denies all REIKI PRACTITIONER Hx Family History Family History: Reviewed,noncontributory to illness Social History Smoker: Non-Smoker Alcohol: Denies ETOH Use Drugs: Denies Drug Use Lives In: Home Constitutional: denies: chills, diaphoresis, fatigue, fever, malaise, sweats, weakness, others EENTM: denies: blurred vision, double vision, ear bleeding, ear discharge, ear drainage, ear pain, ear ringing, eye pain, eye redness, hearing loss, mouth pain, mouth swelling, nasal discharge, nose bleeding, nose congestion, nose pain, photophobia, tearing, throat pain, throat swelling, voice changes, others Respiratory: denies: cough, hemoptysis, orthopnea, SOB at rest, shortness of breath, SOB with excertion, stridor, wheezing, others Cardiovascular: denies: chest pain, dizzy spells, diaphoresis, Dyspnea on exertion, edema, irregular heart beat, left arm pain, lightheadedness, palpitations, PND, syncope, others Gastrointestinal: denies: abdomen distended, abdominal pain, blood streaked bowels, constipated, diarrhea, dysphagia, difficulty swallowing, hematemesis, melena, nausea, poor appetite, poor fluid intake, rectal bleeding, rectal pain, vomiting, others Genitourinary: denies: abnormal vagina bleeding, burning, dyspareunia, dysuria, flank pain, frequency, hematuria, incontinence, pain, , vagina discharge, urgency, others Neurological: denies: dizziness, fainting, headache, left sided numbness, left sided weakness, numbness, paresthesia, pre-existing deficit, right sided numbness, right sided weakness, seizure, speech problems, tingling, tremors, weakness, others Musculoskeletal: denies: back pain, gout, joint pain, joint swelling, muscle pain, muscle stiffness, neck pain, others Integumetry: denies: bruises, change in color, change in hair/nails, dryness, laceration, lesions, lumps, rash, wounds, others Allergic/Immunocompromised: denies: Difficulty Healing, Frequent Infections, Hives, Itching, others Hematologic/Lymphatic: denies: anemia, blood clots, easy bleeding, easy bruising, swollen glands, others Endocrine: denies: excessive hunger, excessive sweating, excessive thirst, excessive urination, flushing, intolerance to cold, intolerance to heat, unexplained weight gain, unexplained weight loss, others Psychiatric: denies: anxiety, bipolar disorder, depression, hopeless, panic disorder, schizophrenia, sleepless, suicidal, others All Other Systems: Reviewed and Negative Physical Exam General Appearance: No Apparent Distress HEENT: Pale Conjuntivae (L), Pale Conjuntivae (R), Pharynx Normal, TMs Normal Neck: Full Range of Motion, Non-Tender, Normal, Normal Inspection Respiratory: Chest Non-Tender, Lungs Clear, No Accessory Muscle Use, No Respiratory Distress, Normal Breath Sounds Cardiovascular: No Edema, No JVD, No Murmur, No Gallop, Normal Peripheral Pulses, Regular Rate/Rhythm, Other (The patient has a Lawson catheter in the left chest) Breast Exam: Deferred Gastrointestinal: No Organomegaly, Non Tender, No Pulsatile Mass, Normal Bowel Sounds, Soft Genitalia: Deferred Pelvic: Deferred Rectal: Deferred Extremities: No calf tenderness, Normal capillary refill, Normal inspection, Normal range of motion, Non-tender, No pedal edema Musculoskeletal : Apperance: Normal Neurologic: Alert, retirement plan specialist II-XII nml as Tested, No Motor Deficits, Normal Affect, Normal Mood, No Sensory Deficits Cerebellar Function: Normal Reflexes: Normal Skin: Dry, Normal Color, Warm Lymphatic: No Adenopathy Was a procedure done? Was a procedure done?: No Differential Dx Considerations may include: Lawson catheter removal, renal failure X-Ray, Labs, Meds, VS Vital Signs Date Time Temp Pulse Resp B/P (MAP) Pulse Ox O2 Delivery O2 Flow Rate FiO2 11/15/24 15:22 97.4 86 16 150/78 (102) 99 This time we are not going to remove the catheter because it was not an emergency We did contact the controlled atmospheric furnace brazer and they are going to schedule her as an outpatient to have the catheter removed The patient will return to the emergency department's the condition worsens. Time of 1ST Reevaluation: 15:02 Reevaluation 1ST: Unchanged Patient Education/Counseling: Diagnosis, Treatment, Prognosis Family Education/Counseling: Diagnosis, Treatment, Prognosis Departure 1 Departure Time of Disposition: 16:40 Impression: Primary Impression: Acute renal failure Qualified Codes: N17.1 - Acute kidney failure with acute cortical necrosis Disposition: 01 HOME / SELF CARE / HOMELESS Condition: Fair Discharged With: Self, Spouse Critical Care Note Critical Care Time?: No Stability Stability form required: No Heart Score Heart Score: Heart Score Response (Comments) Value History N/A 0 EKG N/A 0 Age N/A 0 Risk Factors N/A 0 Troponin N/A 0 Total 0 I personally scribed for NANCY FOLEY MD ([email or web address]) on 11/15/24 at 14:38. Electronically submitted by Altaf Dickens ([email or web address]). NANCY FOLEY MD Nov 15, 2024 14:38
[2024-11-15 16:54] VITALS: BP 150/78; PULSE 84; RESP 18; TEMP 97.9; O2SAT 99
== END 2024-11-15 16:45 | disposition home or self-care (01) ==
LOC: ER 13:55
DX: I12.0 Hypertensive chronic kidney disease with stage 5 chronic kidney disease or end stage renal disease (principal); E11.22 Type 2 diabetes mellitus with diabetic chronic kidney disease; N18.6 End stage renal disease; Z99.2 Dependence on renal dialysis; Z90.710 Acquired absence of both cervix and uterus